=== PATIENT | female | born 1945 | race Hispanic/Latino ===

== ENCOUNTER 2020-08-12 13:24 | Inpatient (IN) | payer OTHER ==
--- OUTSIDE RECORDS SUMMARY | 2020-08-12 13:31 | XMS REPORT | Continuity of Care Document ---
:1945 Author Organization Fio Care Team Providers Name Role Phone Fio Unavailable Un available Problems Problem Status Onset Classification Date Comments Sourc e Date Reported NEW PT CONSULT - Active [facility] CIRRHOSIS 0 [facility] Arthritis Active Problem 07/30/2019 [facility] (disorder) [facility] Center Cirrhosis of Active Problem 07/30/2019 [place] [facility] liver (disorder) Med [facility] Center Diabetes Active Problem 07/30/2019 [facility] mellitus Medical (disorder) Center Disease of Active Problem 07/30/2019 [facility] digestive system Med ica (disorder) Center Hypertensive Active Problem 07/30/2019 [place] [facility] disorder, Medical systemic Center arterial (disorder) Simple obesity Active Problem 07/30/2019 [place] ([facility] Medications Medication Details Route Status Patient Ordering Order Source Instructions Provider Date pantoprazole 40 40 mg = 1 Active [place] [facility] mg oral enteric tab, PO, 020 Medical coated tablet Daily, 3 Center Refill(s) omeprazole 40 mg 40 mg = 1 Inactive [place] oral delayed cap, PO, 020 Medical release capsule Daily, 1 Center Refill(s) gabapentin 100 100 mg = 1 Active [place] [facility] MG Oral Capsule cap, PO, 020 Medical TID, 1 Center Refill(s) DULoxetine 60 mg 60 mg = 1 [place] oral delayed cap, PO, 020 Medical release capsule Daily, 0 Center Refill(s) Tresiba 60 unit, Active [facility] FlexTouch SUB-Q, 020 Medical Daily, 0 Center Refill(s) magnesium oxide 400 mg = 1 [place] mg oral tab, PO, 020 Medical tablet Daily, 1 Center Refill(s) irbesartan 300 300 mg = 1 Active [place] mg oral tablet tab, PO, 020 Medical Daily, 0 Center Refill(s) tramadol 50 mg = 1 Active [place] hydrochloride 50 tab, PO, 020 Medica l MG Oral Tablet Q8H, PRN Center Pain, 0 Refill(s) Milk Thistle 0 Refill(s) Inactive [place] [address] [facility] non-formulary TURMERIC Inactive [facility] DIALY, 020 Medical Refill(s) 0 Center Allergies, Adverse Reactions, Alerts No Known Medication Allergies Immunizations No Data Provided for This Section Results Order Name Results Value Reference Date Interpretation Comments Alize rce Range ANEMIA Iron 57 30 - 160 07/[address] ANEMIA TIBC 416 228 - 428 07/[address] ANEMIA Ferritin Lvl 15 5 - 204 07/[address] ANEMIA UIBC 359 110 - 370 07/[address] ANEMIA % Satur Fe 14 12 - 57 07/[address] CHEM PANEL Glucose Lvl 88 70 - 99 07/[address] CHEM PANEL BUN 17 7 - 22 07/[address] CHEM PANEL Creatinine Lvl 0.72 0.50 - 07/28 [place] [address] [facility] CHEM PANEL Sodium Lvl 139 135 - 145 07/[address] CHEM PANEL Potassium Lvl 3.8 3.5 - 5.1 07/[place] [address] CHEM PANEL Chloride Lvl 107 95 - 109 07/[address] [place] [facility] CHEM PANEL CO2 26 24 - 32 07/[address] CHEM PANEL Calcium Lvl 9.5 8.5 - 10.5 07/28 [place] as /[address] [facility] CHEM PANEL AGAP 9.8 10.0 - 07/28 [place] 20.[address] [facility] CHEM PANEL eGFR 82 07/28 Result [place] [id number] Comment: The Medical eGFR is Center calculated using the CKD-EPI formula. In most young, healthy individuals the eGFR will be >90 mL/min/1.73m2 . The eGFR declines with age. An eGFR of 60-89 may be normal in some populations, particularly the elderly, for whom the CKD-EPI formula has not been extensively validated. Use of the eGFR is not recommended in the following populations:< br/>
Nereyda viduals with unstable creatinine concentration s, including patients and those with serious co-morbid conditions.<b r/>
Patie nts with extremes in muscle mass or diet.

The data above are obtained from the National Kidney Disease Education Program (NKDEP) which additionally recommends that when the eGFR is used in patients with extremes of body mass index for purposes of drug dosing, the eGFR should be multiplied by the estimated BMI. CHEM PANEL Total Protein 7.8 6.4 - 8.4 07/[address] CHEM PANEL Albumin Lvl 4.1 3.5 - 5.0 07/[address] CHEM PANEL ALT 22 0 - 65 07/[address] CHEM PANEL AST 26 0 - 37 07/[address] CHEM PANEL Alk Phos 118 39 - 136 07/[address] CHEM PANEL Bili Total 0.6 0.2 - 1.3 07/[address] CHEM PANEL Bili Direct 0.1 0.0 - 0.3 07/[address] CHEM PANEL Bili Indirect 0.5 0.0 - 1.0 07/[address] CHEM PANEL Globulin 3.7 2.7 - 4.2 07/[address] CHEM PANEL A/G Ratio 1.1 0.7 - 1.6 07/[address] HEMATOLOGY WBC 7.1 3.7 - 10.4 07/[address] HEMATOLOGY RBC 4.49 4.20 - 07/28 [place] [address] [facility] HEMATOLOGY Hgb 12.3 12.0 - 07/28 [facility] [address] HEMATOLOGY Hct 37.8 36.0 - 07/28 [place] [address] HEMATOLOGY MCV 84.2 80.0 - 07/28 [facility] 98.[address] [facility] HEMATOLOGY MCH 27.5 27.0 - 07/28 [facility] 31.[address] HEMATOLOGY MCHC 32.6 32.0 - 07/28 [place] [address] HEMATOLOGY RDW 15.1 11.5 - 07/28 [place] 14.5 /[address] [facility] HEMATOLOGY Platelet 115 133 - 450 07/[address] HEMATOLOGY MPV 10.3 7.4 - 10.4 07/[address] HEMATOLOGY PT 14.2 12.0 - 07/28 [facility] 14.7 /[address] [facility] HEMATOLOGY INR 1.10 0.85 - 07/28 [facility] 1.17 /[address] [facility] HEMATOLOGY Segs 39.9 45.0 - 07/28 [facility] [address] [facility] HEMATOLOGY Lymphocytes 51.4 20.0 - 07/28 [facility] [address] [facility] HEMATOLOGY Monocytes 5.5 2.0 - 12.0 07/[address] HEMATOLOGY Eosinophils 2.7 0.0 - 4.0 07/28 [facility] [facility] HEMATOLOGY Basophils 0.5 0.0 - 1.0 07/[address] HEMATOLOGY Neutrophils # 2.8 1.5 - 8.1 07/[address] HEMATOLOGY Lymphocytes # 3.6 1.0 - 5.5 07/[address] HEMATOLOGY Monocytes # 0.4 0.0 - 0.8 07/[address] HEMATOLOGY Eosinophils # 0.2 0.0 - 0.5 07/28 [facility] [address] IMMUNOLOGY Hep C Ab Negative Negative 07[facility] (07/28/19 1:58 PM) Center IMMUNOLOGY Hep Bs Ab 79.4 <=7.4 07/28 [facility] mIU/mL [facility] IMMUNOLOGY Hep Bs Ag Negative Negative 07/28 [facility] *NA* [facility] (07/28/19 1:58 PM) Center IMMUNOLOGY Hep B Core Ab Positive Negative 07/28 [facility] [place] *NA* [facility] (07/28/19 1:58 PM) Center IMMUNOLOGY Hep A Tot Positive Negative 07/28 [facility] *NA* [facility] (07/28/19 1:58 PM) Center IMMUNOLOGY CHER Negative Negative 07/28 [facility] (07/28/19 1:58 PM) [facility] SMA Screen Negative Negative 07/28 [facility] (07/28/19 1:58 PM) Medica l Center IMMUNOLOGY AMA Ab Scr Negative Negative 07/28 [facility] (07/28/19 1:58 PM) /[address] [place] [address] IMMUNOLOGY A-1-AT 141 83 - 199 07/[address] IMMUNOLOGY CERULOPLASMIN 30 20 - 60 07/28 [facility] [address] IMMUNOLOGY IgG Lvl 1070 694 1618 07/[address] TUMOR AFP 4.8 0.0 - 11.0 07/[address] Pathology Reports No Data Provided for This Section Diagnostic Reports No Data Provided for This Section Consultation Notes No Data Provided for This Section Discharge Summaries No Data Provided for This Section History and Physicals No Data Provided for This Section Vital Signs Vital Sign Value Date Comments Source Systolic (mm Hg) 150 07/28/2019 [facility] dical [place] Diastolic (mm Hg) 73 07/28/2019 [facility] Heart Rate 77 07/28/2019 [facility] Respitory Rate 16 07/28/2019 [facility] Height 166.37 cm 07/28/2019 [facility] Weight 94.545 07/28/2019 [facility] BMI Calculated 34.16 07/28/2019 [facility] Encounters Location Location Encounter Encounter Reason Attending ADM GA Stat us Source Details Type Number For Provider Date Date Visit Digestive Outpatient [id number] Patricia 07/28 07/29 [facility] Disease [place] /2019 [facility] Procedures Procedure Code Date Perfomer Comments Source Abdominal tap [id number] [facility] Appendectomy [id number] [facility] Colonoscopy<sup>1</ [id number] 2018 [place] sup> [facility] Endoscopy<sup>2</boo [id number] 2018 [facility] p> [facility] Tonsillectomy [id number] [facility] Assessment and Plan No Data Provided for This Section Plan of Care No Data Provided for This Section Social History Social History Date Source Social History TypeResponse 07/28/2019 [facility] Never Smoking Status Former smoker; Ready to change: No; Conc erns about tobacco use in household: No; Exposure to Tobacco Smoke None; Cigarette Smoking Last 365 Days No; Reg Smoking Cessation Counseling No entered on: 07/28/19 Family History No Data Provided for This Section Advance Directives No Data Provided for This Section Functional Status No Data Provided for This Section
--- OUTSIDE RECORDS SUMMARY | 2020-08-12 13:31 | XMS REPORT | Continuity of Care Document ---
:1945 Author Organization [facility] t Address [address] [place] [address] Care Team Providers Name Role Phone Litzy Mitchell Attending Clinician Problems Condition Condition Condition Status Onset Resolution Last Treating Co mments Source Name Details Category Date Date Treatment Clinician Date NEW PT Diagnosis Active 2019-07-29 Mem [facility] CONSULT - 1- 08:29:00 l CIRRHOSIS NEW PT 00:00: [place] nn CONSULT - 00 CIRRHOSIS Active 07/16/2019 [facility] Arthritis Problem Active 2019-07-30 [facility] [place] (disorder) 23:57:56 l [place] Arthritis (disorder) Active Problem 07/30/2019 [facility] Cirrhosis Problem Active 2019-07-30 Me [place] of liver 23:57:56 l (disorder) [place] n Cirrhosis of liver (disorder) Active Problem 07/30/2019 [facility] Diabetes Problem Active 2019-07-30 Mem o[facility] mellitus 23:57:56 l (disorder) Diabetes [place] mellitus (disorder) Active Problem 07/30/2019 [facility] Disease of Problem Active 2019-07-30 M [facility] digestive 23:57:56 l system Disease [place] (disorder) of digestive system (disorder) Active Problem 07/30/2019 [facility] Hypertensi Problem Active 2019-07-30 M emoria ve 23:57:56 l disorder, [place] systemic Hypertensi arterial ve (disorder) disorder, systemic arterial (disorder) Active Problem 07/30/2019 [facility] Simple Problem Active 2019-07-30 Memor ia obesity 23:57:56 l (disorder) Simple Herm [facility] obesity (disorder) Active Problem 07/30/2019 [facility] Allergies, Adverse Reactions, Alerts This patient has no known allergies or adverse reactions. Social History Social Habit Start Date Stop Date Quantity Comments Source Social History 2019-07-28 2019-07-28 [facility] 18:46:54 18:46:54 Medications Ordered Filled Start Stop Current Ordering Indication Dosage Frequency Signature Comments Components Source Medication Medication Date Date Medication? Clinician (SIG) Name Name pantoprazol 2020-0 Yes 40 mg = 1 M emoria e 40 mg 1-14 tab, PO, l oral 18:48: Daily, 3 [place] enteric 00 Refill(s) coated tablet omeprazole 2020-0 No 40 mg = 1 [place] 40 mg oral 1-14 cap, PO, l delayed 18:48: Daily, 1 [place] n release 00 Refill(s) capsule gabapentin 2020-0 Yes 100 mg = 1 M emoria 100 MG Oral 1-14 cap, PO, l Capsule 18:48: TID, 1 [place] 00 Refill(s) DULoxetine 2020-0 Yes 60 mg = 1 Me mor[place] 60 mg oral 1-14 cap, PO, l delayed 18:48: Daily, 0 [place] n release 00 Refill(s) capsule Tresiba 2020-0 Yes 60 unit, Memori a FlexTouch 14 SUB-Q, l 18:48: Daily, 0 [place] 00 Refill(s) magnesium 2020-0 Yes 400 mg = 1 Me [place] oxide 400 -14 tab, PO, l mg oral 18:48: Daily, 1 [place] n tablet 00 Refill(s) irbesartan 2019-0 Yes 300 mg = 1 M emoria 300 mg oral 1-14 tab, PO, l tablet 18:48: Daily, 0 [place] 00 Refill(s) tramadol 2019-0 Yes 50 mg = 1 Jeffrey natali hydrochlori -14 tab, PO, l de 50 MG 18:48: Q8H, PRN [place] nn Oral Tablet 00 Pain, 0 Refill(s) Milk 2020-0 No 0 Memoria Thistle -14 Refill(s) l 18:48: [place] 00 non-formula 2019-0 No TURMERIC Me moria ry -14 DIALY, l 18:48: Refill(s) [place] 00 0 Vital Signs Vital Name Observation Time Observation Value Comments Source Systolic (mm Hg) 2019-07-28 18:32:00 Jeffrey rial [place] Diastolic (mm Hg) 2019-07-28 18:32:00 Mem orial [place] Heart Rate 2019-07-28 18:32:00 [facility] [place] Respitory Rate 2019-07-28 18:32:00 Memori al [place] Height 2019-07-28 18:32:00 166.37 cm [facility] [place] Weight 2019-07-28 18:32:00 [facility] [place] BMI Calculated 2019-07-28 18:32:00 Memori al [place] Procedures Procedure Date / Time Performed Performing Clinician [facility] e Abdominal tap [facility] [place] Appendectomy [facility] [place] Colonoscopy<sup>1</sup> [facility] [place] Endoscopy<sup>2</sup> [facility] Tonsillectomy [facility] [place] Encounters Start End Encounter Admission Attending Care Care Encounter Source Date/Time Date/Time Type Type Clinicians Facility Department ID 2019-07-28 2019-07-28 Outpatient [facility] [id number] 12:27:00 23:59:00 Patricia 00 Litzy 2019-07-28 2019-07-28 Outpatient [facility] [id number] [facility] 12:27:00 12:27:00 Results Test Description Test Time Test Comments Results Result Comments Source ANEMIA STUDY 2019-07-28 57 [facility] 19:58:00 ANEMIA STUDY 2019-07-28 416 [facility] [place] 19:58:00 ANEMIA STUDY 2019-07-28 15 [facility] [place] 19:58:00 ANEMIA STUDY 2019-07-28 359 [facility] [place] 19:58:00 ANEMIA STUDY 2019-07-28 14 [facility] [place] 19:58:00 CHEM PANEL 2019-07-28 88 [facility] [place] nn 19:58:00 CHEM PANEL 2019-07-28 17 [facility] [place] nn 19:58:00 CHEM PANEL 2019-07-28 0.72 [facility] [place] nn 19:58:00 CHEM PANEL 2019-07-28 139 [facility] [place] nn 19:58:00 CHEM PANEL 2019-07-28 3.8 [facility] [place] nn 19:58:00 CHEM PANEL 2019-07-28 107 [facility] [place] nn 19:58:00 CHEM PANEL 2019-07-28 26 [facility] [place] nn 19:58:00 CHEM PANEL 2019-07-28 9.5 [facility] [place] nn 19:58:00 CHEM PANEL 2019-07-28 9.8 [facility] [place] nn 19:58:00 CHEM PANEL 2019-07-28 82 [facility] [place] nn 19:58:00 CHEM PANEL 2019-07-28 7.8 [facility] [place] nn 19:58:00 CHEM PANEL 2019-07-28 4.1 [facility] [place] nn 19:58:00 CHEM PANEL 2019-07-28 22 [facility] [place] nn 19:58:00 CHEM PANEL 2019-07-28 26 [facility] [place] nn 19:58:00 CHEM PANEL 2019-07-28 118 [facility] [place] nn 19:58:00 CHEM PANEL 2019-07-28 0.6 [facility] [place] nn 19:58:00 CHEM PANEL 2019-07-28 0.1 [facility] [place] nn 19:58:00 CHEM PANEL 2019-07-28 0.5 [facility] [place] nn 19:58:00 CHEM PANEL 2019-07-28 3.7 [facility] [place] nn 19:58:00 CHEM PANEL 2019-07-28 19:58:00 Test Item Value Reference Range Interpretation Comme nts A/G Ratio (test code = A/G Ratio) 1.1 1 0.7-1.6 [facility] TlunxjnPOPOZBWZGH2743-92-06 19:58:007.1[facility] HermannHEMATOLOGY 2019-07-28 19:58:004.49[facility] DgfqnccHGTRLWLVVS7075-72-49 19:58:0012.3[facility] FmcrynzLUSRXEQANE8140-10-47 19:58:0037.8[facility] MswycgdKAXTMPIAAV2165-07-80 19:58:0084.2[facility] DhnolicGDWVHFLJNA6274-52-87 19:58:00 Test Item Value Reference Range Interpretation Comments MCH (test code = MCH) 27.5 pg 27.0-31.0 [facility] LruvndcKZAOQTNWGR4036-54-51 19:58:0032.6[facility] HermannHEMATOLOGY 2019-07-28 19:58:0015.1[facility] AydnceuRLIGWEGECE6680-88-99 19:58:93684Mzkuksip MsyhefcRKAPBOTKFE7106-78-32 19:58:0010.3[facility] HrzmyapNTMCMRMJCL4499-87-70 19:58:00 Test Item Value Reference Range Interpretation Comments PT (test code = PT) 14.2 s 12.0-14.7 [facility] NnmmquwTYRCRHRIED1228-19-87 19:58:00 Test Item Value Reference Range Interpretation Comments INR (test code = INR) 1.10 1 0.85-1.17 [facility] KpvicakROUYRDWEKC2154-68-42 19:58:0039.9[facility] HermannHEMATOLOGY 2019-07-28 19:58:0051.4[facility] OecygvcHWBFDUGJJW7956-26-76 19:58:005.5[facility] UdfvbjbCZBCVIYTDD8741-91-45 19:58:002.7[facility] PgtxmewPJFHNWMKGP2178-90-79 19:58:000.5[facility] EgewkftRRHHFSBKCS7475-95-61 19:58:002.8[facility] [place] CVEPHYEPDH7206-27-69 19:58:003.6[facility] McfwqnaNLIAGWBWOE7187-32-80 19:58:000.4 Memorial NxmrvvzBRPVNGFIAV3395-48-79 19:58:000.2[facility] HermannIMMUNOLOGY 2019-07-28 19:58:00Negative *NA*(07/28/19 1:58 PM)[facility]ann[facility]MUNOLOGY 2019-07-28 19:58:0079.4[facility] PtemdxmLNWCGVWYGS6413-95-20 19:58:00Negative *NA*(07/28/19 1:58 PM)[facility] WcegrfjNEKAKIDTBT6445-44-79 19:58:00Positive *NA*(07/28/19 1:58 PM)[facility] WbnbpvkVEUTZPLLRC9064-83-84 19:58:00Positive *NA*(07/28/19 1:58 PM)[facility] DpalmtkFKYJXELBOY9946-36-83 19:58:00Negative (07/28/19 1:58 PM)[facility] DudvxtjOMMUAVRBMV2925-16-02 19:58:00Negative (07/28/19 1:58 PM)[facility] IwghghzWFPZHBBDCZ3800-40-37 19:58:00Negative (07/28/19 1:58 PM) [facility] NhopzslLYCRQPZBRO4130-62-23 19:58:77637Eekhharj HermannIMMUNOLOGY 2019-07-28 19:58:0030[facility] EpoomeyTTGFQURDFB7688-55-11 19:58:078935Fynochul HermannTUMOR MKDOIJZ7483-06-92 19:58:004.8[facility] [place]
[2020-08-12] MEDS ORDERED: METHYLPREDNISOLONE 40 MG INJ ONE (14:52)
[2020-08-12 15:09] LABS: Absolute Lymphocytes (CBC) 0.8 K/uL (0.7-4.9); Basophils % 0.3 % (0-1.3); Hematocrit 39.6 % (36.0-45.0); MPV 10.4 fL (7.6-11.3); RBC Red Blood Cell Count 4.66 M/uL (3.86-4.86)
[2020-08-12 15:17] LABS: Protime INR 1.03
[2020-08-12] MEDS ORDERED: ASPIRIN 81 MG CHEWABLE TABLET ONE (15:20)
[2020-08-12 15:33] LABS: ALT/SGPT 41 U/L (12-78); AST/SGOT 78 U/L (15-37); Alkaline Phosphatase 150 U/L (45-117); BUN Blood Urea Nitrogen 23 mg/dL (7-18); Bicarbonate 24 mmol/L (21-32); Bilirubin Direct 0.3 mg/dL (0-0.2); Bilirubin Total 0.7 mg/dL (0.2-1.0); Ferritin 210.3 ng/mL (8-388); Glucose Level 240 mg/dL (74-106); Magnesium 1.5 mg/dL (1.8-2.4); NT PRO-BNP 76 pg/mL (<450); Protein, Total 7.3 g/dL (6.4-8.2); Sodium Level 135 mmol/L (136-145); Troponin (Emerg Dept Use Only) < 0.02 ng/mL (0.0-0.045)
[2020-08-12 15:36] LABS: Blood Morphology Comment NOT SEEN (NOT SEEN); Platelet Estimate DECR; White Blood Cell Scan OK (OK)
--- NOTE | 2020-08-12 15:48 | RAD REPORT ---
EXAM DESCRIPTION: RAD - Chest Single View - 08/12/2020 3:21 pm CLINICAL HISTORY: Cough;SOB Chest pain. COMPARISON: Chest Pa And Lat (2 Views) dated 09/20/2016; CHEST PA AND LAT 2 VIEW dated 04/22/2015; CHES T SINGLE VIEW dated 11/24/2013; CHEST SINGLE VIEW dated 10/08/2010 FINDINGS: Portable technique limits examination quality. Moderate pulmonary opacities are present, greater in the right lower lung, likely representing pneumo jere. The heart is mildly enlarged in size. No displaced fractures.
[2020-08-12] MEDS ORDERED: MAGNESIUM SULFATE 1 gm IVPB 1 GM/100 ML BAG IV ONE (16:17)
[2020-08-12 16:18] LABS: SARS-COV-2 RT PCR POSITIVE (NEGATIVE)
--- NOTE | 2020-08-12 16:34 | RAD REPORT ---
EXAM DESCRIPTION: CT - Chest For Pe Angio - 08/12/2020 4:23 pm CLINICAL HISTORY: Chest pain. Cough;SOB COMPARISON: No comparisons TECHNIQUE: CT angiogram of the pulmonary arteries was performed with MIP. All CT scans are performed using dose optimization technique as appropriate and may include automated exposure control or mA/KV adjustment according to patient size. FINDINGS: No evidence of pulmonary thromboembolism. No acute aortic finding demonstrated. Moderately severe lung opacities are present, greater in both lung bases and peripherally, compatible with COVID-19 infection. No significant pericardial or pleural fluid. No concerning bony finding. IMPRESSION: No evidence of pulmonary thromboembolism. Moderate bilateral lung opacities are present greatest in the periphery and lung bases compatible wit h COVID-19 infection.
--- NOTE | 2020-08-12 17:17 | ER ---
Nurse's Notes [facility] Name: Samatnha Velasquez Age: 74 yrs Sex: Female : 1945 Arrival Date: 08/12/2020 Time: 13:28 Bed 6 Private MD: Diagnosis: Coronavirus infection, unspecified;Pneumonia due to other specified infectious organisms;Hypoxemia Presentation: 08/12 13:37 Chief complaint: Patient states: Diagnosed 10 days ago with covid. SOB, cough, fatigue ll1 for 3 days. + body aches. Slight nausea and diarrhea. No appetite. Coronavirus screen: Client denies travel out of the [place] in the last 14 days. cough unrelated to allergies, difficulty breathing, fatigue, fever, headache, shortness of breath, Client presents with at least one sign or symptom that may indicate coronavirus-19. Standard/surgical mask placed on the client. Ebola Screen: Patient denies travel to an Ebola-affected area in the 21 days before illness onset. Initial Sepsis Screen: Does the patient meet any 2 criteria? HR > 90 bpm. No. Patient's initial sepsis screen is negative. Does the patient have a suspected source of infection? Yes: Productive cough/pneumonia. Risk Assessment: Do you want to hurt yourself or someone else? Patient reports no desire to harm self or others. Onset of symptoms was August 02, 2020. 13:37 Method Of Arrival: Ambulatory 1 13:37 Acuity: JAVIER 2 ll1 Triage Assessment: 14:17 Respiratory: the patient has moderate shortness of breath. vg1 Historical: - Allergies: 13:40 No Known Drug Allergies; ll1 - PMHx: 13:40 Hypertension; Diabetes - NIDDM; ll1 - PSHx: 13:40 Appendectomy; ll1 - Immunization history:: Flu vaccine is up to date. - Social history:: Smoking status: Patient denies any tobacco usage or history of. Screenin:17 Abuse screen: Denies threats or abuse. Nutritional screening: No deficits noted. vg1 Tuberculosis screening: No symptoms or risk factors identified. Fall Risk No fall in past 12 months (0 pts). No secondary diagnosis (0 pts). No IV (0 pts). Ambulatory Aid- None/Bed Rest/Nurse Assist (0 pts). Gait- Normal/Bed Rest/Wheelchair (0 pts) Mental Status- Oriented to own ability (0 pts). Total Rodriguez Fall Scale indicates No Risk (0-24 pts). Assessment: 14:10 General: Appears in no apparent distress. comfortable, Behavior is calm, cooperative. vg1 Pain: Complains of pain in patient states body aches. Pain currently is 7 out of 10 on a pain scale. Neuro: Level of Consciousness is awake, alert, obeys commands, Oriented to person, place, time, situation. Respiratory: Airway is patent Respiratory effort is even, unlabored, Respiratory pattern is regular, symmetrical, tachypnea Breath sounds with crackles in right posterior middle lobe. GI: Reports diarrhea, nausea, vomiting. : No signs and/or symptoms were reported regarding the genitourinary system. EENT: No signs and/or symptoms were reported regarding the EENT system. Derm: Skin is intact, is healthy with good turgor. Musculoskeletal: Circulation, motion, and sensation intact. 16:50 Reassessment: Patient appears in no apparent distress at this time. No changes from vg1 previously documented assessment. Patient and/or family updated on plan of care and expected duration. Pain level reassessed. Patient is alert, oriented x 3, equal unlabored respirations, skin warm/dry/pink. 17:18 Reassessment: Received VO from Campos Looney to increase Magnesium to infuse within 10 vg1 minutes. Vital Signs: 13:37 BP 169 / 76; Pulse 94; Resp 24; Temp 97.6; Pulse Ox 87% on R/A; Weight 93.89 kg; Height ll1 5 ft. 5 in. (165.10 cm); Pain 9/10; 14:16 BP 154 / 69; Pulse 90; Resp 22; Pulse Ox 94% on 3 lpm NC; vg1 15:00 BP 159 / 63; Pulse 80; Resp 20; Pulse Ox 94% on 3 lpm NC; vg1 16:00 BP 153 / 70; Pulse 78; Resp 20; Pulse Ox 95% on 3 lpm NC; vg1 17:00 BP 157 / 69; Pulse 82; Resp 22; Pulse Ox 97% on 3 lpm NC; vg1 13:37 Body Mass Index 34.45 (93.89 kg, 165.10 cm) ll1 ED Course: 13:28 Patient arrived in ED. am4 13:39 Triage completed. ll1 13:40 Arm band placed on. ll1 13:45 Mechelle Reno RN is Primary Nurse. vg1 13:48 Campos Looney PA is PHCP. cp 13:48 Johan Bailey MD is Attending Physician. cp 14:17 Patient has correct armband on for positive identification. Placed in gown. Bed in low vg1 position. Call light in reach. Side rails up X 1. 15:04 Initial lab(s) drawn, by ED staff, sent to lab. Inserted saline lock: 22 gauge in right vg1 wrist, using aseptic technique. ,using aseptic technique. done by HUMBERTO Warner Blood collected. 15:21 XRAY Chest (1 view) In Process Unspecified. EDMS 16:[address] via wheelchair. vg1 16:23 CT Chest For PE Angio In Process Unspecified. EDMS 16:[address] moved back from CT. vg1 17:15 Wayne Mathis MD is Referral Physician. cp 17:46 Wayne Mathis MD is Hospitalizing Provider. cp 08/13 00:41 Report given to Sabrina PAUL. vg1 03:02 Primary Nurse role handed off by Mechelle Reno RN mw2 07:36 Belgica Olson RN is Primary Nurse. sv 09:06 Magnesium Sent. sv 09:06 Lipid Profile Sent. sv 09:06 CBC with Automated Diff Sent. sv 09:06 Basic Metabolic Panel Sent. sv Administered Medications: 08/12 15:13 Drug: SOLU-Medrol 80 mg Route: IVP; Site: left wrist; vg1 16:49 Follow up: Response: No adverse reaction vg1 15:13 Drug: Aspirin Chewable Tablet 324 mg Route: PO; vg1 16:49 Follow up: Response: No adverse reaction vg1 16:48 Drug: Magnesium Sulfate 1 grams Route: IVPB; Infused Over: 1 hrs; Site: right wrist; vg1 18:58 Follow up: IV Status: Completed infusion vg1 Outcome: 17:16 Discharge ordered by MD. cp 17:47 Decision to Hospitalize by Provider. 08/13 13:06 Patient left the ED. ss Signatures: Dispatcher [employer] Belgica Fair RN RN sv Smirch, Shelby, RN RN Campos Looney PA PA cp Sveta Price mw2 Mechelle Reno RN RN vg1 Yesenia Gregory, RN RN ll1 Noreen Patterson 4
--- NOTE | 2020-08-12 17:17 | EDPHYS ---
Physician Documentation [facility] Name: Samantha Velasquez Age: 74 yrs Sex: Female : 1945 Arrival Date: 08/12/2020 Time: 13:28 Bed 6 Private MD: ED Physician Johan Bailey HPI: 08/12 14:20 This 74 yrs old Female presents to ER via Ambulatory with complaints of cp Shortness Of Breath, COVID+. 14:20 The patient has shortness of breath at rest. cp 14:20 Onset: The symptoms/episode began/occurred 3 day(s) ago. cp 14:20 Duration: The symptoms are continuous, and are steadily getting worse. Associated signs cp and symptoms: Pertinent positives: non-productive cough, fatigue. 14:20 Patient reports testing positive for COVID-19 10 days ago. cp Historical: - Allergies: 13:40 No Known Drug Allergies; ll1 - PMHx: 13:40 Hypertension; Diabetes - NIDDM; ll1 - PSHx: 13:40 Appendectomy; ll1 - Immunization history:: Flu vaccine is up to date. - Social history:: Smoking status: Patient denies any tobacco usage or history of. ROS: 14:25 Constitutional: Negative for fever, poor PO intake. cp 14:25 Eyes: Negative for injury, pain, redness, and discharge. cp 14:25 ENT: Negative for drainage from ear(s), ear pain, sore throat, difficulty swallowing, difficulty handling secretions. 14:25 Cardiovascular: Negative for chest pain, edema. 14:25 Respiratory: Positive for cough, shortness of breath, at rest. Negative for wheezing. 14:25 Abdomen/GI: Negative for abdominal pain, nausea, vomiting, and diarrhea. 14:25 Back: Negative for radiated pain. 14:25 : Negative for urinary symptoms. 14:25 Neuro: Negative for altered mental status, dizziness, headache, syncope, weakness. 14:25 All other systems are negative. Exam: 14:30 Constitutional: The patient appears in no acute distress, alert, awake, cp non-diaphoretic, non-toxic, well developed, well nourished, obese. 14:30 Head/Face: Normocephalic, atraumatic. cp 14:30 Eyes: Periorbital structures: appear normal, Conjunctiva: normal, no exudate, no injection, Sclera: no appreciated abnormality, Lids and lashes: appear normal, bilaterally. 14:30 ENT: External ear(s): are unremarkable, Nose: is normal, Mouth: Lips: moist, Oral mucosa: pink and intact, moist, Posterior pharynx: Airway: no evidence of obstruction, patent. 14:30 Neck: ROM/movement: is normal, is supple, without pain, no range of motions limitations. 14:30 Chest/axilla: Inspection: normal, Palpation: is normal, no crepitus, no tenderness. 14:30 Cardiovascular: Rate: normal, Rhythm: regular, Edema: is not appreciated, JVD: is not appreciated. 14:30 Respiratory: mild respiratory distress is noted, Respirations: labored breathing, that is mild, Breath sounds: bronchial sounds, that are mild, are heard diffusely, decreased breath sounds, that are mild, diffuse, wheezing: is not appreciated. 14:30 Abdomen/GI: Inspection: abdomen appears normal, Bowel sounds: active, all quadrants, Palpation: abdomen is soft and non-tender, in all quadrants. 14:30 Back: pain, is absent, ROM is normal. 14:30 Skin: no rash present. cp 14:30 Neuro: Orientation: to person, place \T\ time. Mentation: is normal, Motor: moves all fours, strength is normal. 14:50 ECG was reviewed by the Attending Physician. cp Vital Signs: 13:37 BP 169 / 76; Pulse 94; Resp 24; Temp 97.6; Pulse Ox 87% on R/A; Weight 93.89 kg; Height ll1 5 ft. 5 in. (165.10 cm); Pain 9/10; 14:16 BP 154 / 69; Pulse 90; Resp 22; Pulse Ox 94% on 3 lpm NC; vg1 15:00 BP 159 / 63; Pulse 80; Resp 20; Pulse Ox 94% on 3 lpm NC; vg1 16:00 BP 153 / 70; Pulse 78; Resp 20; Pulse Ox 95% on 3 lpm NC; vg1 17:00 BP 157 / 69; Pulse 82; Resp 22; Pulse Ox 97% on 3 lpm NC; vg1 13:37 Body Mass Index 34.45 (93.89 kg, 165.10 cm) ll1 MDM: 14:07 Patient medically screened. cp 15:20 Physician consultation: Wayne Mathis MD was called at 15:15, was contacted at 15:15, cp regarding admission, to the telemetry unit. patient's condition, wants patient discharged to home. Will set up home oxygen and call in home meds if condition remains stable. 16:55 Data reviewed: vital signs, nurses notes, lab test result(s), EKG, radiologic studies, cp CT scan, plain films, I have discussed the patient's presentation/case with the attending Emergency Department Physician;. 17:00 Counseling: I had a detailed discussion with the patient and/or guardian regarding: the cp historical points, exam findings, and any diagnostic results supporting the discharge/admit diagnosis, lab results, radiology results. 17:00 Physician consultation: Wayne Mathis MD was called at 17:00, was contacted at 17:00, cp regarding patient's condition, Patient reports home oxygen has not been delivered, she lives alone with little family support. Will admit for continued care. 08/12 14:15 Order name: Basic Metabolic Panel; Complete Time: 15:40 cp 08/12 14:15 Order name: CBC with Diff; Complete Time: 15:40 cp 08/12 15:15 Interpretation: Normal except: WBC 3.20; PLT 83; RDW 15.3. cp 08/12 14:15 Order name: LFT's; Complete Time: 15:40 cp 08/12 14:15 Order name: Magnesium; Complete Time: 15:40 cp 08/12 14:15 Order name: NT PRO-BNP; Complete Time: 15:40 cp 08/12 14:15 Order name: PT-INR; Complete Time: 15:40 cp 08/12 14:15 Order name: Troponin (emerg Dept Use Only); Complete Time: 15:40 cp 08/12 14:15 Order name: CRP; Complete Time: 15:40 cp 08/12 14:15 Order name: D-Dimer; Complete Time: 15:40 cp 08/12 14:15 Order name: Ferritin; Complete Time: 15:40 cp 08/12 15:36 Order name: CBC Smear Scan; Complete Time: 15:40 EDMS 08/12 14:15 Order name: XRAY Chest (1 view); Complete Time: 16:50 cp 08/12 15:42 Order name: CT Chest For PE Angio; Complete Time: 16:50 cp 08/12 16:18 Order name: COVID-19/FLU A+B; Complete Time: 16:50 EDMS 08/12 19:00 Order name: Basic Metabolic Panel EDMS 08/12 19:01 Order name: Basic Metabolic Panel EDMS 08/12 19:01 Order name: CBC with Automated Diff EDMS 08/12 19:01 Order name: CBC with Automated Diff EDMS 08/12 19:01 Order name: Lipid Profile EDCO 08/12 19:01 Order name: Lipid Profile EDMS 08/12 19:01 Order name: Magnesium EDMS 08/12 19:01 Order name: Magnesium EDMS 08/12 22:40 Order name: Glucose, Ancillary Testing EDMS 08/13 08:01 Order name: Glucose, Ancillary Testing EDMS 08/12 14:15 Order name: EKG; Complete Time: 14:17 cp 08/12 14:15 Order name: Cardiac monitoring; Complete Time: 15:04 cp 08/12 14:15 Order name: EKG - Nurse/Tech; Complete Time: 15:04 cp 08/12 14:15 Order name: IV Saline Lock; Complete Time: 15:04 cp 08/12 14:15 Order name: Labs collected and sent; Complete Time: 15:04 cp 08/12 14:15 Order name: O2 Per Protocol; Complete Time: 14:19 cp 08/12 14:15 Order name: O2 Sat Monitoring; Complete Time: 14:19 cp 08/12 19:01 Order name: CONS Physician Consult; Complete Time: 09:06 EDMS 08/12 19:01 Order name: Consistent Carb (ADA) 1800 Marco; Complete Time: 09:06 EDMS 08/12 19:01 Order name: Respiratory Therapy Consult; Complete Time: 09:06 EDMS EC:50 Rate is 83 beats/min. Rhythm is regular. WV interval is normal. QRS interval is normal. cp QT interval is normal. T waves are Inverted in lead aVR. Interpreted by me. Reviewed by me. Administered Medications: 15:13 Drug: SOLU-Medrol 80 mg Route: IVP; Site: left wrist; vg1 16:49 Follow up: Response: No adverse reaction vg1 15:13 Drug: Aspirin Chewable Tablet 324 mg Route: PO; vg1 16:49 Follow up: Response: No adverse reaction vg1 16:48 Drug: Magnesium Sulfate 1 grams Route: IVPB; Infused Over: 1 hrs; Site: right wrist; vg1 18:58 Follow up: IV Status: Completed infusion vg1 Disposition: 08/12/20 17:47 Hospitalization ordered by Wayne Mathis for Inpatient Admission. Preliminary diagnosis are Coronavirus infection, unspecified, Pneumonia due to other specified infectious organisms, Hypoxemia. - Bed requested for [facility] ER HOLD. - Status is Inpatient Admission. ss - Condition is Stable. - Problem is new. - Symptoms have improved. Addendum: 08/14/2020 20:01 Co-signature as Attending Physician, Johan Bailey MD I agree with the assessment and [facility] plan of care. Signatures: Dispatcher [employer] EDCO Leticia Merritt RN RN Johan Bailey MD MD [facility] Magaly Bran RN RN Campos Looney PA PA cp Garcia, Victoria, RN RN vg1 Yesenia Gregory RN RN 1 Corrections: (The following items were deleted from the chart) 08/12 15:27 14:17 Influenza Screen (A \T\ B)+[id number].LAB.BRZ ordered. EDCO EDMS 15:27 14:23 Influenza Screen (A ordered. EDCO EDMS 17:46 17:16 08/12/2020 17:16 Discharged to Home. Impression: Pneumonia due to other specified cp infectious organisms; Coronavirus infection, unspecified; Hypoxemia. Condition is Stable. Forms are Medication Reconciliation Form, Thank You Letter, Antibiotic Education, Prescription Opioid Use. Follow up: Wayne Mathis; When: 2 - 3 days; Reason: Recheck today's complaints. Problem is new. Symptoms have improved. cp 20:16 17:47 Hospitalization Ordered by Wayne Mathis MD for Inpatient Admission. Preliminary dw diagnosis is Coronavirus infection, unspecified; Pneumonia due to other specified infectious organisms; Hypoxemia. Bed requested for Telemetry/MedSurg (Inpatient). Status is Inpatient Admission. Condition is Stable. Problem is new. Symptoms have improved. cp 08/13 13:06 08/12 20:16 08/12/2020 17:47 Hospitalization Ordered by Wayne Mathis MD for Inpatient ss Admission. Preliminary diagnosis is Coronavirus infection, unspecified; Pneumonia due to other specified infectious organisms; Hypoxemia. Bed requested for [facility] ER HOLD. Status is Inpatient Admission. Condition is Stable. Problem is new. Symptoms have improved. dw
[2020-08-12] MEDS ORDERED: ONDANSETRON 4 MG/2 ML VIAL IV PRN (18:55)
[2020-08-12] MEDS ORDERED: ACETAMINOPHEN 500 MG TAB PO PRN (18:55)
[2020-08-12] MEDS ORDERED: IVERMECTIN 3 MG TABLET PO ONE (19:00)
[2020-08-12 20:17] VITALS: BMI 31.6
[2020-08-12] MEDS: RIVAROXABAN 15 MG TABLET PO SCH (21:00)
[2020-08-12] MEDS: METHYLPREDNISOLONE 40 MG INJ IV SCH (21:00)
[2020-08-12] MEDS ORDERED: RIVAROXABAN 15 MG TABLET PO ONE (21:36)
[2020-08-12] MEDS ORDERED: GLUCAGON 1 MG/VIAL IM PRN ×2 (22:47→22:49)
[2020-08-12] MEDS ORDERED: D50W 25 GM/50 ML SYRINGE IV PRN ×2 (22:47→22:49)
[2020-08-12] MEDS: INSULIN -REGULAR HUMAN 50 UNIT/0.5 ML ML SQ SCH (23:11)
[2020-08-12] MEDS ORDERED: INSULIN -REGULAR HUMAN 50 UNIT/0.5 ML ML ONE (23:32)
[2020-08-13 00:43] VITALS: TEMP 98
[2020-08-13 05:43] LABS: Absolute Lymphocytes (CBC) 0.9 K/uL (0.7-4.9); Basophils % 0.1 % (0-1.3); Hematocrit 37.5 % (36.0-45.0); Lymphocytes % 36.4 % (15.3-44.8); MPV 10.6 fL (7.6-11.3); RBC Red Blood Cell Count 4.46 M/uL (3.86-4.86)
[2020-08-13 05:55] LABS: Magnesium 1.9 mg/dL (1.8-2.4); Potassium 4.4 mmol/L (3.5-5.1)
[2020-08-13] MEDS: INSULIN -REGULAR HUMAN 50 UNIT/0.5 ML ML SQ SCH (07:30)
--- NOTE | 2020-08-13 08:13 | P.SSS ---
Patient History Date of Service: 08/13/20 Reason for admission: WEAKNESS History of Present Illness: MS MARIO HAS COVID PNEUMONIA. SHE WAS WEAK AND BROUGHT TO HOSPITAL BY FAMILY. HER OXYGN SATURATION IS ABOUT 86% ON RA. SHE IS DOING GOOD ON OXYGN 3 LT NC. I TRIED TO GET HER HOME YESERDAY BUT THERE WAS NO FAMILY TO TAKE CARE OF HER OXYGEN AT HOME. SHE DID NOT GET IVERMECTINE HER PHARMACY HAD NONE. I CALLED IN RX TO [facility] TODAY. Allergies No Known Drug Allergies Allergy (Verified 04/22/15 10:58) Unknown No Known Allergie Allergy (Uncoded 12/08/16 12:11) Unknown Home Medications: Irbesartan/Hydrochlorothiazide [Avalide 300-12.5 mg Tablet] 1 tab PO DAILY 11/24/13 Magnesium Oxide [Mag 0X*] 400 mg PO BID 11/24/13 Gabapentin [Neurontin*] 100 mg PO TID 04/22/15 Verapamil Sr [Calan SR Or Isoptin SR*] 240 mg PO DAILY 04/22/15 Duloxetine HCl [Cymbalta] 60 mg PO DAILY 08/13/20 Insulin Degludec [Tresiba Flextouch U-200] 50 units SQ DAILY WITH BREAKFAST 08/13/20 traMADol HCL [Ultram*] 50 mg PO BIDP PRN 08/13/20 - Past Medical/Surgical History Has patient received pneumonia vaccine in the past: Yes Diabetic: Yes -: HTN -: CHRONIC CONSTIPATION -: CHRONIC PANCREATITIS -: FREQUENT UTI -: DM -: LIVER Cirrhosis -: APPENDECTOMY -: TONSILLECTOMY - Family History Mother -: Heart disease, Hypertension Father Notes: AAA - Social History Smoking Status: Never smoker Alcohol use: No CD- Drugs: No Caffeine use: Yes Place of Residence: Home Review of Systems 10-point ROS is otherwise unremarkable General: Weakness, Malaise Respiratory: Shortness of Breath Physical Examination - Vital Signs Temperature: 98 F Blood Pressure: 127/68 Pulse: 63 Respirations: 21 Pulse Ox (%): 91 - Physical Exam General: Mild distress, Obese HEENT: Atraumatic, PERRLA, Mucous membr. moist/pink, EOMI, Sclerae nonicteric Neck: Supple, 2+ carotid pulse no bruit, No LAD, Without JVD or thyroid abnormality Respiratory: Clear to auscultation bilaterally, Normal air movement Cardiovascular: Regular rate/rhythm, Normal S1 S2 Gastrointestinal: Normal bowel sounds, No tenderness Musculoskeletal: No tenderness Integumentary: No rashes Neurological: Normal gait, Normal speech, Normal strength at 5/5 x4 extr, Normal tone, Normal affect Lymphatics: No axilla or inguinal lymphadenopathy - Studies Laboratory Data (last 24 hrs) 08/12/20 14:55: PT 12.2, INR 1.03 08/12/20 14:55: WBC 3.20 L, Hgb 13.0, Hct 39.6, Plt Count 83 L 08/12/20 14:55: Sodium 135 L, Potassium 4.0, BUN 23 H, Creatinine 0.82, Glucose 240 H, Magnesium 1.5 L, Total Bilirubin 0.7, AST 78 H, ALT 41, Alkaline Phosphatase 150 H - Diagnosis (Problem(s)) (1) Pneumonia due to COVID-19 virus Current Visit: Yes Status: Acute Plan: SHE IS STABLE. SHE WILL HAVE ONE MORE DOSE OF IVERMECTINE IN AM. I WILL AVOID ORAL STEROIDS GLUCOSE IS HIGH. I ORDERED BUDESONIDE NEBS AND TALKED TO PHARMACIST MYSELF TO HAVE IT TAKEN CARE OF (2) Diabetes Current Visit: Yes Status: Acute Plan: SHE HAS INSULIN FOR THIS AND WILL RAISE IT NEED. SHE LIVES ALONE AND THERE IS ONE DAUGHTER WHO MAY TAKE CARE OF HER. OTHER DAUGHTER . Qualifiers: Diabetes mellitus type: type 2 - Disposition Disposition: ROUTINE DISCHARGE Condition: FAIR
[2020-08-13] MEDS ORDERED: ASPIRIN EC 81 MG TAB PO ONE (08:14)
[2020-08-13] MEDS ORDERED: INSULIN -REGULAR HUMAN 50 UNIT/0.5 ML ML ONE (08:14)
[2020-08-13] MEDS ORDERED: METHYLPREDNISOLONE 125 MG INJ ONE (08:14)
[2020-08-13] MEDS: RIVAROXABAN 15 MG TABLET PO SCH (08:25)
[2020-08-13] MEDS: METHYLPREDNISOLONE 40 MG INJ IV SCH (08:25)
[2020-08-13] MEDS ORDERED: ASPIRIN EC 81 MG TAB PO SCH (09:00)
[2020-08-13 09:36] VITALS: O2SAT 92
[2020-08-13 13:07] VITALS: BP 151/73
--- NOTE | 2020-08-13 14:24 | EKG ---
Test Date: 2020-08-12 Test Time: 14:41:17 User Support Analyst Supervisor: BEVERLEY MEASUREMENT RESULTS: Intervals: Rate: 83 RI: 174 QRSD: 86 QT: 386 QTc: 453 Wenden: P: 68 RI: 174 QRS: -2 T: 49 INTERPRETIVE STATEMENTS: Normal sinus rhythm Normal ECG Compared to ECG 04/22/2015 11:38:34 No significant changes Electronically Signed On 08-13-20 14:22:58 AERIAL ERECTOR by Abhijit Garza
== END 2020-08-13 13:07 | disposition home or self-care (01) | DRG 177 ==
LOC: ER 13:24 → ERHOLD 18:53
PROVIDERS: ADMIT Internal Medicine; ATTEND Internal Medicine
DX: U07.1 COVID-19 (principal); J12.82 Pneumonia due to coronavirus disease 2019; E11.9 Type 2 diabetes mellitus without complications; E66.9 Obesity, unspecified; Z68.31 Body mass index [BMI] 31.0-31.9, adult; Z79.4 Long term (current) use of insulin; Z79.899 Other long term (current) drug therapy; Z90.49 Acquired absence of other specified parts of digestive tract
CPT/HCPCS: 0240U; 36415; 71045; 71275; 80048; 80061; 80076; 82728; 82947; 83735; 83880; 84484; 85025; 85379; 85610; 86140; 93005; 96365; 96366; 96375; 99284; J2920; J2930; J3475; Q9967

== ENCOUNTER 2020-09-08 10:14 | Inpatient (IN) | payer OTHER ==
--- OUTSIDE RECORDS SUMMARY | 2020-09-08 10:17 | XMS REPORT | Continuity of Care Document ---
:1945 Author Organization [facility] t Address [address] [place] [address] Care Team Providers Name Role Phone Litzy Mitchell Attending Clinician Problems Condition Condition Condition Status Onset Resolution Last Treating Co mments Source Name Details Category Date Date Treatment Clinician Date NEW PT Diagnosis Active 2019-07-29 Mem oria CONSULT - 1-02 08:29:00 l CIRRHOSIS NEW PT 00:00: [place] nn CONSULT - 00 CIRRHOSIS Active 07/16/2019 [facility] Simple Problem Active 2019-07-30 Memor ia obesity 23:57:56 l (disorder) Simple Herm berkley obesity (disorder) Active Problem 07/30/2019 [facility] Arthritis Problem Active 2019-07-30 Me moria (disorder) 23:57:56 l [place] Arthritis (disorder) Active Problem 07/30/2019 [facility] Cirrhosis Problem Active 2019-07-30 Me moria of liver 23:57:56 l (disorder) Sony n Cirrhosis of liver (disorder) Active Problem 07/30/2019 [facility] Diabetes Problem Active 2019-07-30 Mem oria mellitus 23:57:56 l (disorder) Diabetes He rmann mellitus (disorder) Active Problem 07/30/2019 [facility] Disease of Problem Active 2019-07-30 M emoria digestive 23:57:56 l system Disease Lino (disorder) of digestive system (disorder) Active Problem 07/30/2019 [facility] Hypertensi Problem Active 2019-07-30 M emoria ve 23:57:56 l disorder, Lino systemic Hypertensi arterial ve (disorder) disorder, systemic arterial (disorder) Active Problem 07/30/2019 [facility] Allergies, Adverse Reactions, Alerts This patient has no known allergies or adverse reactions. Social History Social Habit Start Date Stop Date Quantity Comments Source Social History 2019-07-28 2019-07-28 [facility] 18:46:54 18:46:54 Medications Ordered Filled Start Stop Current Ordering Indication Dosage Frequency Signature Comments Components Source Medication Medication Date Date Medication? Clinician (SIG) Name Name pantoprazol 2020-0 Yes 40 mg = 1 M emoria e 40 mg 1-14 tab, PO, l oral 18:48: Daily, 3 Lino enteric 00 Refill(s) coated tablet omeprazole 2020-0 [...] FlexTouch 14 SUB-Q, l 18:48: Daily, 0 Cumming 00 Refill(s) magnesium 2020-0 Yes 400 mg = 1 Me moria oxide 400 -14 tab, PO, l mg oral 18:48: Daily, 1 Sony n tablet 00 Refill(s) irbesartan 2019-0 Yes 300 mg = 1 M emoria 300 mg oral 1-14 tab, PO, l tablet 18:48: Daily, 0 Cum[place] 00 Refill(s) tramadol 2020-0 Yes 50 mg = 1 Jeffrey natali hydrochlori -14 tab, PO, l de 50 MG 18:48: Q8H, PRN [place] nn Oral Tablet 00 Pain, 0 Refill(s) Milk 2020-0 No 0 Memoria Thistle -14 Refill(s) l 18:48: [place] 00 non-formula 2020-0 No TURMERIC Me moria ry -14 DIALY, l 18:48: Refill(s) [place] 00 0 Vital Signs Vital Name Observation Time Observation Value Comments Source Systolic (mm Hg) 2019-07-28 18:32:00 Jeffrey rial [place] Diastolic (mm Hg) 2019-07-28 18:32:00 Mem orial Lino Heart Rate 2019-07-28 18:32:00 [facility] [place] Respitory Rate 2019-07-28 18:32:00 Memori al Lino Height 2019-07-28 18:32:00 166.37 cm [facility] Lino Weight 2019-07-28 18:32:00 [facility] L[place] BMI Calculated 2019-07-28 18:32:00 Memori al Lino Procedures Procedure Date / Time Performed Performing Clinician [facility] e Abdominal tap [facility] [place] Appendectomy [facility] [place] Colonoscopy<sup>1</sup> [facility] [place] Endoscopy<sup>2</sup> [facility] H ermann Tonsillectomy [facility] [place] Encounters Start End Encounter Admission Attending Care Care Encounter Source Date/Time Date/Time Type Type Clinicians Facility Department ID 2019-07-28 2019-07-28 Outpatient [facility] [id number] 12:27:00 23:59:00 Patricia 00 Litzy 2019-07-28 2019-07-28 Outpatient [facility] MED [id number] [facility] 12:27:00 12:27:00 Results Test Description Test Time Test Comments Results Result Comments Source ANEMIA STUDY 2019-07-28 359 [facility] Her hutchison [...] = A/G Ratio) 1.1 1 0.7-1.6 [facility] UdzaehbYCNSRDWTWX0914-71-85 19:58:007.1[facility] HermannHEMATOLOGY 2019-07-28 19:58:004.49[facility] BgedscjLBVVVFFFWE2156-42-44 19:58:0012.3[facility] FodanwuDUOKDHYDCP6923-32-67 19:58:0037.8[facility] MalrfynKUDMMUJKFT0106-28-54 19:58:0084.2[facility] QzpsdrbXJXSQPYVVC0878-42-35 19:58:00 Test Item Value Reference Range Interpretation Comments MCH (test code = MCH) 27.5 pg 27.0-31.0 [facility] LwzzflhPLEKCOMBBJ2686-22-26 19:58:0032.6[facility] HermannHEMATOLOGY 2019-07-28 19:58:0015.1[facility] PfjxbohBZZJBRVXET2770-93-36 19:58:34170Oxuvrode AqemebqDOCONQVEWW7344-51-42 19:58:0010.3[facility] PsvhdfaCWIUICZOJE5797-05-94 19:58:00 Test Item Value Reference Range Interpretation Comments PT (test code = PT) 14.2 s 12.0-14.7 [facility] SjdrniqVYJTWRUKDA1077-15-24 19:58:00 Test Item Value Reference Range Interpretation Comments INR (test code = INR) 1.10 1 0.85-1.17 [facility] SvqovlyCIGZUCMYOW5804-21-67 19:58:0039.9[facility] HermannHEMATOLOGY 2019-07-28 19:58:0051.4[facility] PrqvyhkSXGZOVYAOT7241-26-01 19:58:005.5[facility] WevksstMHUTWNMMOD3603-68-04 19:58:002.7[facility] VnfrelcNQVPBQBJLE8033-80-11 19:58:000.5[facility] VtpynekMYQASWXHJM9861-62-54 19:58:002.8[facility] Lino GQTRGZBRLY3035-28-91 19:58:003.6[facility] LreihwaVPJDABOLIG5256-53-17 19:58:000.4 [facility] SrhzyrsKRDRHTEHAZ8620-86-62 19:58:000.2[facility] HermannIMMUNOLOGY 2019-07-28 19:58:00Negative *NA*(07/28/19 1:58 PM)[facility] HermannIMMUNOLOGY 2019-07-28 19:58:0079.4[facility] NuptldeOMVHFREKLM5317-68-86 19:58:00Negative *NA*(07/28/19 1:58 PM)[facility] MunjhavXINTLDBTQX9407-30-37 19:58:00Positive *NA*(07/28/19 1:58 PM)[facility] EdgowrgUYDOXJQKKU3786-45-21 19:58:00Positive *NA*(07/28/19 1:58 PM)[facility] OjyqxpcYKXDFLFSSX1603-02-80 19:58:00Negative (07/28/19 1:58 PM)[facility] VdbtjfbVYNGOTDLAJ6317-23-88 19:58:00Negative (07/28/19 1:58 PM)[facility] FioroaoMIXKBMMFAI5469-96-16 19:58:00Negative (07/28/19 1:58 PM) [facility] GjykusrXRAQSCAYEC7546-63-13 19:58:24657Nvpevnrt HermannIMMUNOLOGY 2019-07-28 19:58:0030[facility] ZujjmxnJPDCOKAQZH2401-59-58 19:58:903102Wilcuzep HermannTUMOR KLWEEQK3981-97-17 19:58:004.8[facility] HermannANEMIA TEWWA8475-52-91 19:58:0057[facility] HermannANEMIA CNIQT3168-05-30 19:58:18222Nkekhmpv Lino ANEMIA GXALR2802-48-25 19:58:0015Mepuja Huynh
[2020-09-08 10:51] LABS: Absolute Lymphocytes (CBC) 1.9 K/uL (0.7-4.9); Basophils % 0.8 % (0-1.3); Hematocrit 32.1 % (36.0-45.0); Lymphocytes % 25.3 % (15.3-44.8); MPV 9.9 fL (7.6-11.3); RBC Red Blood Cell Count 3.68 M/uL (3.86-4.86)
[2020-09-08 10:55] LABS: Protime INR 1.39
[2020-09-08] MEDS ORDERED: NA CHLORIDE 0.9% 500 ML ONE (10:55)
[2020-09-08] MEDS ORDERED: NA CHLORIDE 0.9% 2,000 ML ONE (10:56)
[2020-09-08 11:04] LABS: ALT/SGPT 41 U/L (12-78); AST/SGOT 32 U/L (15-37); Albumin 2.3 g/dL (3.4-5.0); Alkaline Phosphatase 169 U/L (45-117); Amylase 34 U/L (25-115); BUN Blood Urea Nitrogen 16 mg/dL (7-18); Bicarbonate 30 mmol/L (21-32); Bilirubin Direct 0.3 mg/dL (0-0.2); CKMB Creatine Kinase MB 1.4 ng/mL (0.3-3.6); Creatine Phosphokinase 51 U/L (26-192); Glucose Level 183 mg/dL (74-106); Lipase 131 U/L (73-393); Potassium 3.9 mmol/L (3.5-5.1); Protein, Total 6.3 g/dL (6.4-8.2); Sodium Level 137 mmol/L (136-145); Troponin (Emerg Dept Use Only) < 0.02 ng/mL (0.0-0.045)
[2020-09-08] MEDS ORDERED: LEVALBUTEROL 1.25 MG/3 ML NEB ONE (11:30)
[2020-09-08] MEDS ORDERED: CEFTRIAXONE/SWI 1gm 1 GM/10 ML SYR ONE (11:36)
--- NOTE | 2020-09-08 11:37 | RAD REPORT ---
EXAM DESCRIPTION: RAD - Chest Single View - 09/08/2020 11:16 am CLINICAL HISTORY: Cough;SOB, COVID positive late July COMPARISON: Portable August 12 TECHNIQUE: AP portable chest image was obtained 09/08/2020 11:16 am . FINDINGS: Lung volumes are very low which limits the examination. Interstitial and alveolar opacitie s are present in both lung campos. Heart size is magnified by portable technique and low lung volumes . No pneumothorax or large pleural effusion. IMPRESSION: Very limited low lung volume examination showing bilateral pneumonia pattern.
--- NOTE | 2020-09-08 11:51 | RAD REPORT ---
EXAM DESCRIPTION: CT - Chest For Pe Angio - 09/08/2020 11:36 am CLINICAL HISTORY: Chest pain;SOB COMPARISON: Chest For Pe Angio dated 08/12/2020; Chest Single View dated 09/08/2020 TECHNIQUE: Dynamically enhanced 3 mm thick images of the chest were obtained during administration o f approximately 150mL Isovue 370 IV contrast. Coronal and oblique MIP reconstruction images were gene rated and reviewed. Exam utilizes a protocol to evaluate the pulmonary arterial tree. All CT scans are performed using dose optimization technique as appropriate and may include automated exposure control or mA/KV adjustment according to patient size. FINDINGS: Thyroid gland is enlarged extending into the upper mediastinum. This is similar to the rec ent study. No pulmonary emboli are identified. The exam has significant respiration and body movement artifact. Far peripheral branch assessment is limited. Probability of clinically significant pulmonary embolic disease is felt to be very low. The aorta as imaged shows no acute or suspicious finding. No pericardial thickening or effusion. Mild cardiomegaly is present. Interstitial and alveolar opacification present throughout both lower lobes, the lingula and to a les ser extent the bilateral upper lobes. Right middle lobe is generally spared. Findings are more pronou nced than seen August 12. Given the provided history, bilateral COVID-19 pneumonia is most likely. No pleural effusion or pleural thickening. No mediastinal or hilar suspicious masses. No chest wall masses or abnormal axillary lymphadenopathy. Limited upper abdomen imaging shows nodular contour to the hepatic parenchyma. Ascites is present in the upper abdomen new from the prior examination. IMPRESSION: No pulmonary emboli identified. Extensive interstitial and alveolar opacification consistent with a bilateral COVID-19 pneumonia. Fin dings are slightly worse than August 12 imaging. Limited upper abdomen imaging shows development of ascites since August 12 examination. Full extent of ascites cannot be assessed on this study.
[2020-09-08] MEDS ORDERED: ALBUTEROL 2.5 MG/3 ML NEB SOL NEB PRN (14:18)
[2020-09-08] MEDS ORDERED: IPRATROPIUM BROM 0.5MG/2.5ML NEB PRN (14:18)
[2020-09-08] MEDS ORDERED: ONDANSETRON 4 MG/2 ML VIAL IV PRN (14:18)
--- NOTE | 2020-09-08 14:18 | EDPHYS ---
Physician Documentation [facility] Name: Samantha Velasquez Age: 74 yrs Sex: Female : 1945 Arrival Date: 09/08/2020 Time: 10:17 Bed 26 Private MD: ED Physician Johan aBiley HPI: 09/09 15:49 This 74 yrs old Female presents to ER via EMS with complaints of Shortness Of kdr Breath. 15:49 The patient has shortness of breath at rest, with light activity. Onset: The kdr symptoms/episode began/occurred gradually, 2 day(s) ago. Duration: The symptoms are continuous, and are steadily getting worse. The patient's shortness of breath is aggravated by exertion, light activity, walking. Associated signs and symptoms: Pertinent positives: non-productive cough, Pertinent negatives: diaphoresis, hemoptysis, nausea, numbness in extremities, visual changes. Severity of symptoms: At their worst the symptoms were moderate in the emergency department the symptoms are unchanged. The patient has experienced a previous episode, last week, Patient had been recovering from COVID. The patient has been recently seen by a physician: the patient's primary care provider. Historical: - Allergies: 09/08 10:25 No Known Allergies; ca1 - Home Meds: 10:25 budesonide 1 mg/2 mL inhalation nbsp 2 mL once daily [Active]; duloxetine 60 mg oral ca1 cpDR 1 cap once daily [Active]; metronidazole 500 mg Oral tab [Active]; Avapro 300 mg Oral tab 1 tab once daily [Active]; Xarelto 20 mg oral tab 1 tab once daily [Active]; - PMHx: 10:25 Diabetes - NIDDM; Hypertension; ca1 - PSHx: 10:25 Appendectomy; ca1 - Immunization history:: Flu vaccine is up to date. - Social history:: Smoking status: Patient denies any tobacco usage or history of. ROS: 09/09 15:49 Constitutional: Negative for fever, chills, and weight loss, Eyes: Negative for injury, kdr pain, redness, and discharge, ENT: Negative for injury, pain, and discharge, Neck: Negative for injury, pain, and swelling, Cardiovascular: Negative for chest pain, palpitations, and edema, Abdomen/GI: Negative for abdominal pain, nausea, vomiting, diarrhea, and constipation, Back: Negative for injury and pain, : Negative for injury, bleeding, discharge, and swelling, MS/Extremity: Negative for injury and deformity, Skin: Negative for injury, rash, and discoloration, Neuro: Negative for headache, weakness, numbness, tingling, and seizure activity. Psych: Negative for depression, anxiety, suicide ideation, homicidal ideation, and hallucinations, Allergy/Immunology: Negative for hives, rash, and allergies, Endocrine: Negative for neck swelling, polydipsia, polyuria, polyphagia, and marked weight changes, Hematologic/Lymphatic: Negative for swollen nodes, abnormal bleeding, and unusual bruising. Respiratory: Positive for cough, with no reported sputum, dyspnea on exertion, shortness of breath, at rest. wheezing. Exam: 09/08 11:43 ECG was reviewed by the Attending Physician. kdr 09/09 15:49 Constitutional: This is a well developed, well nourished patient who is awake, alert, kdr and in mild to moderate distress. Head/Face: Normocephalic, atraumatic. Eyes: Pupils equal round and reactive to light, extra-ocular motions intact. Lids and lashes normal. Conjunctiva and sclera are non-icteric and not injected. Cornea within normal limits. Periorbital areas with no swelling, redness, or edema. Neck: Trachea midline, no thyromegaly or masses palpated, and no cervical lymphadenopathy. Supple, full range of motion without nuchal rigidity, or vertebral point tenderness. No Meningismus. Chest/axilla: Normal chest wall appearance and motion. Nontender with no deformity. No lesions are appreciated. Cardiovascular: Regular rate and rhythm with a normal S1 and S2. No gallops, murmurs, or rubs. Normal PMI, no JVD. No pulse deficits. Abdomen/GI: Soft, non-tender, with normal bowel sounds. No distension or tympany. No guarding or rebound. No evidence of tenderness throughout. Back: No spinal tenderness. No costovertebral tenderness. Full range of motion. Skin: Warm, dry with normal turgor. Normal color with no rashes, no lesions, and no evidence of cellulitis. MS/ Extremity: Pulses equal, no cyanosis. Neurovascular intact. Full, normal range of motion. Neuro: Awake and alert, GCS 15, oriented to person, place, time, and situation. Cranial nerves II-XII grossly intact. Motor strength 5/5 in all extremities. Sensory grossly intact. Cerebellar exam normal. Normal gait. Respiratory: mild respiratory distress is noted, moderate respiratory distress is noted, Respirations: labored breathing, that is mild, nasal flaring, shallow respirations, that is mild, Breath sounds: rales, + upper airway congestion. wheezing: Vital Signs: 09/08 10:19 BP 161 / 86; Pulse 110; Resp 33 S; Temp 98.4(O); Pulse Ox 96% on Non-rebreather mask; ca1 Weight 89.81 kg (R); Height 5 ft. 5 in. (165.10 cm) (R); Pain 0/10; 10:25 Resp 26 S; ca1 11:20 BP 167 / 72; Pulse 106; Resp 27; Pulse Ox 98% on Non-rebreather mask; ca1 12:29 BP 148 / 79; Pulse 117; Resp 33 S; Pulse Ox 98% on Non-rebreather mask; ca1 13:00 BP 148 / 63; Pulse 115; Resp 29 S; Pulse Ox 98% on Non-rebreather mask; ca1 13:42 BP 154 / 67; Pulse 107; Resp 35 A; Pulse Ox 99% on BiPAP; ca1 13:55 Resp 30 A; ca1 14:50 BP 160 / 68; Pulse 113; Resp 27 A; Pulse Ox 95% on BiPAP; ca1 15:14 BP 161 / 74; Pulse 108; Resp 27 A; Pulse Ox 99% on BiPAP; ca1 15:45 BP 161 / 70; Pulse 102; Resp 29 A; Pulse Ox 98% on BiPAP; ca1 16:30 BP 152 / 59; Pulse 102; Resp 25 A; Pulse Ox 99% on BiPAP; ca1 17:30 BP 136 / 64; Pulse 100; Resp 28 A; Pulse Ox 96% on BiPAP; ca1 18:30 BP 143 / 72; Pulse 99; Resp 28 A; Pulse Ox 97% on BiPAP; ca1 10:19 Body Mass Index 32.95 (89.81 kg, 165.10 cm) ca1 MDM: 14:17 Patient medically screened. kdr 09/09 15:49 Data reviewed: vital signs, nurses notes, lab test result(s), radiologic studies. kdr Counseling: I had a detailed discussion with the patient and/or guardian regarding: the historical points, exam findings, and any diagnostic results supporting the discharge/admit diagnosis, lab results, radiology results, the need for further work-up and treatment in the hospital. Physician consultation: Wayne Mathis MD regarding admission. Physician consultation: Cynthia Ortiz MD regarding and will see patient in ED, shortly. 09/08 10:28 Order name: Amylase, Serum 09/08 10:28 Order name: Basic Metabolic Panel 09/08 10:28 Order name: Blood Culture Adult (2) 09/08 10:28 Order name: CBC with Diff 09/08 10:28 Order name: Ckmb 09/08 10:28 Order name: CPK 09/08 10:28 Order name: Lactate 09/08 10:28 Order name: LFT's 09/08 10:28 Order name: Lipase; Complete Time: 11:15 09/08 10:28 Order name: Procalcitonin; Complete Time: 11:15 09/08 10:28 Order name: Protime (+inr); Complete Time: 11:15 09/08 10:28 Order name: Ptt, Activated; Complete Time: 11:15 09/08 10:28 Order name: Troponin (emerg Dept Use Only); Complete Time: 11:15 09/08 10:28 Order name: Urine Microscopic Only; Complete Time: 15:39 09/08 10:28 Order name: Amylase; Complete Time: 11:15 09/08 10:28 Order name: Basic Metabolic Panel; Complete Time: 11:15 09/08 10:28 Order name: Blood Culture 09/08 10:28 Order name: CBC with Automated Diff; Complete Time: 11:04 09/08 10:28 Order name: CKMB Creatine Kinase MB; Complete Time: 11:15 09/08 10:28 Order name: Creatine Phosphokinase; Complete Time: 11:15 09/08 10:29 Order name: Lactate; Complete Time: 11:15 09/08 10:29 Order name: Liver (Hepatic) Function; Complete Time: 11:15 09/08 10:46 Order name: Glucose, Ancillary Testing; Complete Time: 11:04 09/08 14:23 Order name: Basic Metabolic Panel [facility] 09/08 14:23 Order name: Basic Metabolic Panel [facility] 09/08 14:23 Order name: CBC with Automated Diff [facility] 09/08 14:23 Order name: CBC with Automated Diff [facility] 09/08 14:23 Order name: NT PRO-BNP [facility] 09/08 14:23 Order name: NT PRO-BNP [facility] 09/08 14:23 Order name: Troponin I [facility] 09/08 10:28 Order name: Chest Single View XRAY; Complete Time: 14:05 [facility] 09/08 10:28 Order name: Accucheck; Complete Time: 10:34 09/08 10:28 Order name: Cardiac monitoring; Complete Time: 10: [facility] 09/08 10:28 Order name: EKG - Nurse/Tech; Complete Time: 10:51 09/08 10:28 Order name: IV Saline Lock - Large Bore; Complete Time: 10: 09/08 10:28 Order name: Labs collected and sent; Complete Time: 10: [facility] 09/08 10:28 Order name: O2 Per Protocol; Complete Time: 10: 09/08 10:28 Order name: O2 Sat Monitoring; Complete Time: 10: [facility] 09/08 10:28 Order name: Urine Dipstick-Ancillary (obtain specimen); Complete Time: 15:22 [facility] 09/08 11:01 Order name: CT Chest For PE Angio; Complete Time: 14:05 kdr 09/08 14:04 Order name: BIPAP [facility] 09/08 14:07 Order name: CT Abd/Pelvis - Without Contrast; Complete Time: 15:39 kdr 09/08 14:23 Order name: Regular [facility] 09/08 14:23 Order name: Troponin I [facility] 09/08 14:23 Order name: Troponin I [facility] 09/08 14:41 Order name: Urine Dipstick--Ancillary (enter results); Complete Time: 15:39 em1 09/08 15:23 Order name: Urine Culture [facility] 09/08 16:44 Order name: Respiratory Therapy Consult EDWA EC/25 11:43 Rate is 106 beats/min. Rhythm is regular, Sinus tachycardia with No ectopy. QRS Nunda is kdr Normal. IN interval is normal. QRS interval is normal. QT interval is normal. Clinical impression: NSR w/ Non-specific ST/T Changes. Administered Medications: 10:39 Drug: NS 0.9% (30 ml/kg) 30 ml/kg Route: IV; Rate: bolus; Site: left antecubital; ca1 11:10 Drug: Xopenex (3) 1.25 mg Route: Inhalation; ca1 11:19 Drug: Rocephin 1 grams Route: IV; Rate: calculated rate; Site: left antecubital; ca1 12:31 Follow up: Response: No adverse reaction; IV Status: Completed infusion ca1 14:20 Drug: Decadron - Dexamethasone 10 mg Route: IVP; Site: left antecubital; ca1 15:22 Follow up: Response: No adverse reaction; Marked relief of symptoms ca1 14:27 Drug: vancoMYCIN 1 grams Route: IVPB; Infused Over: 2 hrs; Site: left antecubital; ca1 15:30 Follow up: Response: No adverse reaction; IV Status: Completed infusion; IV Intake: ca1 250ml Disposition: 09/08/20 14:17 Hospitalization ordered by Wayne Mathis for Inpatient Admission. Preliminary diagnosis are COVID Pneumonia: Worsening, Shortness of breath. - Bed requested for Telemetry/MedSurg (Inpatient). - Status is Inpatient Admission. zb - Condition is Fair. - Problem is an acute exacerbation. - Symptoms have improved. Signatures: Dispatcher [employer] [facility] Leticia Merritt RN RN Johan Bailey MD MD [facility] Renea Coronado RN RN aa5 Shannan Dupont RN RN ca1 Brown, Zipporah, RN RN zb Corrections: (The following items were deleted from the chart) 16:47 16:43 CONS Physician Consult ordered. [facility] 18:36 14:17 Hospitalization Ordered by Wayne Mathis MD for Inpatient Admission. Preliminary dw diagnosis is COVID Pneumonia: Worsening; Shortness of breath. Bed requested for Telemetry/MedSurg (Inpatient). Status is Inpatient Admission. Condition is Fair. Problem is an acute exacerbation. Symptoms have improved. kdr 20:41 18:36 09/08/2020 14:17 Hospitalization Ordered by Wayne Mathis MD for Inpatient zb Admission. Preliminary diagnosis is COVID Pneumonia: Worsening; Shortness of breath. Bed requested for Telemetry/MedSurg (Inpatient). Status is Inpatient Admission. Condition is Fair. Problem is an acute exacerbation. Symptoms have improved. dw
--- NOTE | 2020-09-08 14:18 | ER ---
Nurse's Notes [facility] Name: Samantha Velasquez Age: 74 yrs Sex: Female : 1945 Arrival Date: 09/08/2020 Time: 10:17 Bed 26 Private MD: Diagnosis: COVID Pneumonia: Worsening;Shortness of breath Presentation: 09/08 10:19 Chief complaint: EMS states: Covid+ 08/06/2020. S/S started 08/05/2020. [place] better until ca1 2 days ago. Reports cough and SOB. Reports O2 sat at 45% ambulating at home. Upon arrival on scene O2 sat at 85% RA. NRB started O2 Sat up to 95%. Temp 99.4F, HR 111. IV started G18 LAC, NS 250ML bolus given. Coronavirus screen: Client reports previous positive COVID test result. Date of collection: August 06, 2020 Staff notified of need for isolation. Ebola Screen: Patient negative for fever greater than or equal to 101.5 degrees Fahrenheit, and additional compatible Ebola Virus Disease symptoms Patient denies exposure to infectious person. Patient denies travel to an Ebola-affected area in the 21 days before illness onset. No symptoms or risks identified at this time. Initial Sepsis Screen: Does the patient meet any 2 criteria? RR > 20 per min. HR > 90 bpm. Does the patient have a suspected source of infection? Yes: Productive cough/pneumonia. Risk Assessment: Do you want to hurt yourself or someone else? Patient reports no desire to harm self or others. Onset of symptoms was September 08, 2020. 10:19 Acuity: JAVIER 2 ca1 10:19 Method Of Arrival: EMS: [facility] ca1 Historical: - Allergies: 10:25 No Known Allergies; ca1 - Home Meds: 10:25 budesonide 1 mg/2 mL inhalation nbsp 2 mL once daily [Active]; duloxetine 60 mg oral ca1 cpDR 1 cap once daily [Active]; metronidazole 500 mg Oral tab [Active]; Avapro 300 mg Oral tab 1 tab once daily [Active]; Xarelto 20 mg oral tab 1 tab once daily [Active]; - PMHx: 10:25 Diabetes - NIDDM; Hypertension; ca1 - PSHx: 10:25 Appendectomy; ca1 - Immunization history:: Flu vaccine is up to date. - Social history:: Smoking status: Patient denies any tobacco usage or history of. Screenin:25 Abuse screen: Denies threats or abuse. Denies injuries from another. Nutritional ca1 screening: No deficits noted. Tuberculosis screening: No symptoms or risk factors identified. Fall Risk IV access (20 points). Assessment: 10:29 General: Appears in no apparent distress. Behavior is calm, cooperative, appropriate ca1 for age. Pain: Denies pain. Neuro: Level of Consciousness is awake, alert, obeys commands, Oriented to person, place, time, situation. Cardiovascular: Heart tones S1 S2 present Capillary refill < 3 seconds Patient's skin is warm and dry. Rhythm is sinus tachycardia. Respiratory: Reports shortness of breath at rest cough that is since yesterday Airway is patent Respiratory effort is even, labored, Respiratory pattern is regular, symmetrical, tachypnea Breath sounds with rales bilaterally. GI: Abdomen is round non-distended, Bowel sounds present X 4 quads. Abd is soft and non tender X 4 quads. : No signs and/or symptoms were reported regarding the genitourinary system. EENT: No signs and/or symptoms were reported regarding the EENT system. Derm: Skin is intact, is healthy with good turgor, Skin is pink, warm \T\ dry. Musculoskeletal: Circulation, motion, and sensation intact. Capillary refill < 3 seconds. 11:20 Reassessment: Patient appears in no apparent distress at this time. No changes from ca1 previously documented assessment. Patient and/or family updated on plan of care and expected duration. Pain level reassessed. 12:29 Reassessment: Patient appears in no apparent distress at this time. No changes from ca1 previously documented assessment. Patient and/or family updated on plan of care and expected duration. Pain level reassessed. 13:30 Reassessment: Patient appears in no apparent distress at this time. No changes from ca1 previously documented assessment. Patient and/or family updated on plan of care and expected duration. Pain level reassessed. Notified Dr. Bailey, pt's breathing labored and tachypneic. RT notified for BiPAP. 13:42 Respiratory: Airway is patent Respiratory effort is even, unlabored, Respiratory ca1 pattern is regular, symmetrical, Patient placed on BiPAP: Inspiratory Pressure: 12 Expiratory (EPAP) Pressure: 8 FiO2%: 75 Respiratory Rate: 30. 14:45 Reassessment: Patient appears in no apparent distress at this time. Patient and/or ca1 family updated on plan of care and expected duration. Pain level reassessed. Patient is alert, oriented x 3, equal unlabored respirations, skin warm/dry/pink. 15:23 Reassessment: daughter Meseret [phone]. ca1 15:45 Reassessment: Patient appears in no apparent distress at this time. Patient and/or ca1 family updated on plan of care and expected duration. Pain level reassessed. Patient is alert, oriented x 3, equal unlabored respirations, skin warm/dry/pink. 16:31 Respiratory: Patient placed on BiPAP: FiO2%: 60. ca1 17:34 Reassessment: Patient appears in no apparent distress at this time. Patient and/or ca1 family updated on plan of care and expected duration. Pain level reassessed. Patient is alert, oriented x 3, equal unlabored respirations, skin warm/dry/pink. 18:43 Reassessment: Patient appears in no apparent distress at this time. Patient and/or ca1 family updated on plan of care and expected duration. Pain level reassessed. Patient is alert, oriented x 3, equal unlabored respirations, skin warm/dry/pink. 20:37 Reassessment: patient transferred up stairs with non-rebreather. respiratory. and ER zb tech. Vital Signs: 10:19 BP 161 / 86; Pulse 110; Resp 33 S; Temp 98.4(O); Pulse Ox 96% on Non-rebreather mask; ca1 Weight 89.81 kg (R); Height 5 ft. 5 in. (165.10 cm) (R); Pain 0/10; 10:25 Resp 26 S; ca1 11:20 BP 167 / 72; Pulse 106; Resp 27; Pulse Ox 98% on Non-rebreather mask; ca1 12:29 BP 148 / 79; Pulse 117; Resp 33 S; Pulse Ox 98% on Non-rebreather mask; ca1 13:00 BP 148 / 63; Pulse 115; Resp 29 S; Pulse Ox 98% on Non-rebreather mask; ca1 13:42 BP 154 / 67; Pulse 107; Resp 35 A; Pulse Ox 99% on BiPAP; ca1 13:55 Resp 30 A; ca1 14:50 BP 160 / 68; Pulse 113; Resp 27 A; Pulse Ox 95% on BiPAP; ca1 15:14 BP 161 / 74; Pulse 108; Resp 27 A; Pulse Ox 99% on BiPAP; ca1 15:45 BP 161 / 70; Pulse 102; Resp 29 A; Pulse Ox 98% on BiPAP; ca1 16:30 BP 152 / 59; Pulse 102; Resp 25 A; Pulse Ox 99% on BiPAP; ca1 17:30 BP 136 / 64; Pulse 100; Resp 28 A; Pulse Ox 96% on BiPAP; ca1 18:30 BP 143 / 72; Pulse 99; Resp 28 A; Pulse Ox 97% on BiPAP; ca1 10:19 Body Mass Index 32.95 (89.81 kg, 165.10 cm) ca1 ED Course: 10:17 Patient arrived in ED. em1 10:18 Shannan Dupont, RN is Primary Nurse. ca1 10:23 Triage completed. ca1 10:25 Arm band placed on right wrist. ca1 10:25 Patient has correct armband on for positive identification. Bed in low position. Call ca1 light in reach. Side rails up X2. cardiac monitor on. Pulse ox on. NIBP on. 10:25 No provider procedures requiring assistance completed. Maintain EMS IV. Dressing ca1 intact. Good blood return noted. Site clean \T\ dry. Gauge \T\ site: 18G LAC. 10:29 Johan Bailey MD is Attending Physician. kdr 11:16 Chest Single View XRAY In Process Unspecified. EDMS 11:36 CT Chest For PE Angio In Process Unspecified. EDMS 14:16 Wayne Mathis MD is Hospitalizing Provider. kdr 14:47 CT Abd/Pelvis - Without Contrast In Process Unspecified. EDMS 20:11 Patient admitted, IV remains in place. zb Administered Medications: 10:39 Drug: NS 0.9% (30 ml/kg) 30 ml/kg Route: IV; Rate: bolus; Site: left antecubital; ca1 11:10 Drug: Xopenex (3) 1.25 mg Route: Inhalation; ca1 11:19 Drug: Rocephin 1 grams Route: IV; Rate: calculated rate; Site: left antecubital; ca1 12:31 Follow up: Response: No adverse reaction; IV Status: Completed infusion ca1 14:20 Drug: Decadron - Dexamethasone 10 mg Route: IVP; Site: left antecubital; ca1 15:22 Follow up: Response: No adverse reaction; Marked relief of symptoms ca1 14:27 Drug: vancoMYCIN 1 grams Route: IVPB; Infused Over: 2 hrs; Site: left antecubital; ca1 15:30 Follow up: Response: No adverse reaction; IV Status: Completed infusion; IV Intake: ca1 250ml Intake: 14:30 IV: 1000ml; Total: 1000ml. ca1 15:30 IV: 250ml; Total: 1250ml. ca1 15:30 IV: 1000ml; Total: 2250ml. ca1 Outcome: 14:17 Decision to Hospitalize by Provider. kdr 20:10 Admitted to ICU accompanied by tech, via stretcher, room 407, with oxygen, with chart, zb Other pt transported with portable pulse ox. Report called to HUMBERTO Medley 20:10 Condition: stable 20:10 Instructed on the need for admit, Demonstrated understanding of instructions. 20:41 Patient left the ED. zb Signatures: Dispatcher [employer] EDMS Johan Bailey MD MD kdr Martinez, Eric em1 Shannan Dupont RN RN ca1 Blanquita Marroquin RN RN zb Corrections: (The following items were deleted from the chart) 12:35 10:29 General: Appears in no apparent distress. Behavior is calm, cooperative, ca1 appropriate for age, ca1 12:35 11:20 Reassessment: Patient appears in no apparent distress at this time. No changes ca1 from previously documented assessment. Patient and/or family updated on plan of care and expected duration. Pain level reassessed. Patient is alert, oriented x 3, equal unlabored respirations, skin warm/dry/pink. ca1 12:35 12:29 Reassessment: Patient appears in no apparent distress at this time. No changes ca1 from previously documented assessment. Patient and/or family updated on plan of care and expected duration. Pain level reassessed. Patient is alert, oriented x 3, equal unlabored respirations, skin warm/dry/pink. ca1 13:54 13:50 Respiratory: Airway is patent Respiratory effort is even, unlabored, Respiratory ca1 pattern is regular, symmetrical, Patient placed on BiPAP: Inspiratory Pressure: 12 Expiratory (EPAP) Pressure: 8 FiO2%: 75 Respiratory Rate: 30 ca1 15:13 14:50 Reassessment: Patient appears in no apparent distress at this time. Patient ca1 and/or family updated on plan of care and expected duration. Pain level reassessed. Patient is alert, oriented x 3, equal unlabored respirations, skin warm/dry/pink. ca1 17:34 16:31 Respiratory: Patient placed on BiPAP: FiO2%: 60 ca1 ca1 18:44 17:34 Reassessment: Patient appears in no apparent distress at this time. No changes ca1 from previously documented assessment. Patient and/or family updated on plan of care and expected duration. Pain level reassessed. Patient is alert, oriented x 3, equal unlabored respirations, skin warm/dry/pink. ca1 20:41 20:10 Admitted to ICU accompanied by tech, room 407, with oxygen, with chart, Report zb called to HUMBERTO Medley zb
[2020-09-08] MEDS ORDERED: VANCOMYCIN/NS 1 gm 1 GM/250 ML BAG IVPB ONE (14:30)
[2020-09-08] MEDS ORDERED: dexAMETHasone 10 MG/ML VIAL ONE (14:34)
--- NOTE | 2020-09-08 15:17 | RAD REPORT ---
EXAM DESCRIPTION: CT - Abdomen Pelvis Wo Contrast - 09/08/2020 2:47 pm CLINICAL HISTORY: Abdominal pain COMPARISON: April 2020 TECHNIQUE: Computed axial tomography of the abdomen and pelvis was obtained. IV and oral contrast we re not requested. All CT scans are performed using dose optimization technique as appropriate and may include automated exposure control or mA/KV adjustment according to patient size. FINDINGS: The evaluation of solid organs, vessels and bowel is limited secondary to the lack of con trast administration. Moderate opacities lung bases. Cirrhotic liver. Mild splenomegaly The pancreas and adrenals grossly normal. Small renal cysts. No evidence of diverticulitis. The contrast within the genitourinary system secondary to a CT chest w ith IV contrast earlier on the day. Moderate ascites. Small hiatal hernia IMPRESSION: Cirrhosis with moderate ascites
[2020-09-08 15:22] LABS: Urine Bacteria <20 /HPF (<20); Urine Mucus 1+ /HPF (NONE SEEN); Urine RBC <5 /HPF (NONE SEEN)
[2020-09-08 15:22] LABS: Urine Blood 2+ (NEG); Urine Glucose NEGATIVE (NEG); Urine Protein NEGATIVE (NEG); Urine Specific Gravity 1.015 (1.005-1.030)
[2020-09-08] MEDS ORDERED: BENZONATATE 100 MG CAP PO PRN (16:37)
[2020-09-08] MEDS ORDERED: GLUCAGON 1 MG/VIAL IM PRN (16:57)
[2020-09-08] MEDS: ASCORBIC ACID 500 MG TABLET PO SCH ×2 (17:00→22:13)
--- NOTE | 2020-09-08 17:00 | P.HP ---
Certification for Inpatient Patient admitted to: Inpatient With expected LOS: >2 Midnights Patient will require the following post-hospital care: None Practitioner: I am a practitioner with admitting privileges, knowledge of patient current condition, hospital course, and medical plan of care. Services: Services provided to patient in accordance with Admission requirements found in Title 42 Section 412.3 of the Code of Federal Regulations Patient History Date of Service: 09/08/20 Primary Care Provider: Dr. Mathis Reason for admission: bilateral covid pneumonia History of Present Illness: Ms. Velasquez is a 74yo F with HTN, DM, cirrhosis, and recurrent UTI here today for worsening SOB after COVID+ diagnosis on 08/06. She was seen in the hospital on 08/12 and was discharged due to mild symptoms. She thought she was improving but over the past week she has continued to worsen. Last night she said her O2 sat read 45%. On presentation, her O2 sat was 85%. At bedside now patient is on BiPAP sats in the 90s. She reports a dry cough. Denies N/V, diarrhea, dysuria and hematuria. CT scan consistent with bilateral COVID pneumonia slightly worse than previous imaging. CT scan of the A/P showed cirrhosis with moderate ascites, new since 08/12 imaging. Patient has 2+ blood, 1+ leukocyte esterase, 5- 10WBCs and no bacteria in the urine, waiting on culture. She denies polyuria, dysuria and nocturia. Allergies No Known Drug Allergies Allergy (Verified 04/22/15 10:58) Unknown No Known Allergie Allergy (Uncoded 12/08/16 12:11) Unknown Home medications list reviewed: No Home Medications: Irbesartan/Hydrochlorothiazide [Avalide 300-12.5 mg Tablet] 1 tab PO DAILY 11/24/13 Magnesium Oxide [Mag 0X*] 400 mg PO BID 11/24/13 Gabapentin [Neurontin*] 100 mg PO TID 04/22/15 Verapamil Sr [Calan SR Or Isoptin SR*] 240 mg PO DAILY 04/22/15 Duloxetine HCl [Cymbalta] 60 mg PO DAILY 08/13/20 Insulin Degludec [Tresiba Flextouch U-200] 50 units SQ DAILY WITH BREAKFAST 08/13/20 traMADol HCL [Ultram*] 50 mg PO BIDP PRN 08/13/20 - Past Medical/Surgical History Diabetic: Yes -: HTN -: CHRONIC CONSTIPATION -: CHRONIC PANCREATITIS -: FREQUENT UTI -: DM -: LIVER Cirrhosis -: COVID Pneumonia -: APPENDECTOMY -: TONSILLECTOMY - Family History Mother -: Heart disease, Hypertension Father Notes: AAA - Social History Smoking Status: Never smoker Smoking therapy provided: No Patient receptive to therapy: No Alcohol use: No CD- Drugs: No Caffeine use: Yes Place of Residence: Home Review of Systems General: Malaise, As per HPI Eyes: Unremarkable ENT: Unremarkable Respiratory: Cough, Dry, Shortness of Breath, SOB with Excertion, Pleuritic Pain, As per HPI Cardiovascular: Unremarkable Gastrointestinal: Unremarkable Genitourinary: Unremarkable Musculoskeletal: Unremarkable Integumentary: Unremarkable Neurological: Unremarkable Lymphatics: Unremarkable Physical Examination - Vital Signs Temperature: 98.4 F Blood Pressure: 161/86 Pulse: 110 Respirations: 33 Pulse Ox (%): 96 (on NRB) - Physical Exam General: Alert, In no apparent distress, Oriented x3, Cooperative, Other (difficulty speaking in full sentences) HEENT: Atraumatic, Normocephalic, PERRLA, Mucous membr. moist/pink, EOMI, Sclerae nonicteric Neck: Supple, 2+ carotid pulse no bruit, JVD not distended, No Thyromegaly, No LAD Respiratory: Diminished, Rhonchi/gurgles Cardiovascular: No edema, Normal pulses, Regular rate/rhythm, Normal S1 S2, No gallops, No rubs, No murmurs Capillary refill: <2 Seconds Gastrointestinal: No tenderness, No masses, No rebound, No guarding, Hyperactive, Ascites Musculoskeletal: No clubbing, No swelling, No contractures, No erythema, No tenderness, No warmth Integumentary: No rashes, No breakdown, No significant lesion, No tenderness/swelling, No erythema, No warmth, No cyanosis Neurological: Normal tone, Sensation intact, Cranial nerves 3-12 intact, Normal affect Lymphatics: No axilla or inguinal lymphadenopathy - Studies Laboratory Data (last 24 hrs) 09/08/20 15:14: Troponin I 0.02 09/08/20 10:31: PT 16.0 H, INR 1.39, APTT 25.3 09/08/20 10:31: WBC 7.50, Hgb 10.9 L, Hct 32.1 L, Plt Count 110 L 09/08/20 10:31: Sodium 137, Potassium 3.9, BUN 16, Creatinine 0.66, Glucose 183 H, Total Bilirubin 1.0, AST 32, ALT 41, Alkaline Phosphatase 169 H, Amylase 34, Lipase 131 Imagings Data: CT SCAN ABDOMEN IMPRESSION: Cirrhosis with moderate ascites CT SCAN CHEST IMPRESSION: No pulmonary emboli identified. Extensive interstitial and alveolar opacification consistent with a bilateral COVID-19 pneumonia. Findings are slightly worse than August 12 imaging. Limited upper abdomen imaging shows development of ascites since August 12 examination. Full extent of ascites cannot be assessed on this study. CXR IMPRESSION: Very limited low lung volume examination showing bilateral pneumonia pattern Assessment and Plan - Problems (Diagnosis) (1) Hypertension Current Visit: Yes Status: Chronic Plan: currently stable. will restart home medications once reconciled. Qualifiers: Hypertension type: essential hypertension Qualified Code(s): I10 - Essential (primary) hypertension (2) Urine abnormality Current Visit: Yes Status: Acute Plan: patient has history of recurrent UTIs. currently asymptomatic. UA with 2+ blood, 1+ leukocytes, 5-10 WBCs, no bacteria. waiting on urine culture. continue to monitor. (3) Cirrhosis of liver Current Visit: Yes Status: Chronic Plan: CT scan now with moderate ascites not seen on previous imaging. patient says she is on no medications for her cirrhosis and has not seen GI in a while. mentation stable. GI consult placed for further recommendations. Qualifiers: Ascites presence: with ascites (4) Pneumonia due to COVID-19 virus Current Visit: No Status: Acute Plan: patient currently on BiPAP. started vitamin D, thiamine, zinc and vitamin C. started solumedrol and ivermectin. pulmonology consulted. respiratory consult placed for daily sats and home O2 needs. will continue to monitor. (5) Diabetes Current Visit: No Status: Acute Plan: mild sliding scale insulin protocol initiated. will continue to monitor. Qualifiers: Diabetes mellitus type: type 2 Diabetes mellitus detention insulin use: with continuous churn buttermaker use Diabetes mellitus complication status: without complication Qualified Code(s): E11.9 - Type 2 diabetes mellitus without complications; Z79.4 - FDC (current) use of insulin Discharge Plan: Home Plan to discharge in: 72 Hours - Advance Directives Does patient have a Living Will: Yes Does patient have a Durable POA for Healthcare: Yes - Code Status/Comfort Care Code Status Assessed: Yes Code Status: Full Code Critical Care: No Time Spent Managing Pts Care (In Minutes): 70
[2020-09-08] MEDS ORDERED: D50W 25 GM/50 ML VIAL IV PRN (17:28)
[2020-09-08] MEDS ORDERED: IVERMECTIN 3 MG TABLET PO ONE (18:00)
[2020-09-08] MEDS: ENOXAPARIN 40 MG/0.4 ML SQ SCH (22:12)
[2020-09-08] MEDS: FAMOTIDINE 20 MG TAB PO SCH (22:13)
[2020-09-08] MEDS: MELATONIN 5 MG TABLET PO SCH (22:13)
[2020-09-08] MEDS: INSULIN -REGULAR HUMAN 50 UNIT/0.5 ML ML SQ SCH (22:14)
[2020-09-08] MEDS: THIAMINE 200 MG/2 ML INJ IVP SCH (22:14)
[2020-09-08] MEDS: METHYLPREDNISOLONE 40 MG INJ IV SCH (22:15)
[2020-09-09 03:47] LABS: Absolute Lymphocytes (CBC) 0.8 K/uL (0.7-4.9); Basophils % 0.1 % (0-1.3); Hematocrit 27.1 % (36.0-45.0); Lymphocytes % 22.5 % (15.3-44.8); MPV 9.9 fL (7.6-11.3); RBC Red Blood Cell Count 3.07 M/uL (3.86-4.86)
[2020-09-09 04:04] LABS: BUN Blood Urea Nitrogen 17 mg/dL (7-18); Bicarbonate 25 mmol/L (21-32); Glucose Level 342 mg/dL (74-106); NT PRO-BNP 783 pg/mL (<450); Potassium 4.2 mmol/L (3.5-5.1); Sodium Level 137 mmol/L (136-145)
[2020-09-09 05:04] LABS: Blood Morphology Comment NOT SEEN (NOT SEEN); Platelet Estimate DECR; White Blood Cell Scan OK (OK)
[2020-09-09] MEDS: INSULIN -REGULAR HUMAN 50 UNIT/0.5 ML ML SQ SCH ×4 (07:30→21:48)
[2020-09-09] MEDS ORDERED: INFLUENZA VACCINE (for 3y+) 0.5 ML DOSE IMVAC ONE (08:00)
[2020-09-09] MEDS ORDERED: PNEUMOCOCCAL VACCINE 0.5 ML IMVAC ONE (08:00)
[2020-09-09] MEDS ORDERED: IVERMECTIN 3 MG TABLET PO ONE (09:00)
[2020-09-09] MEDS: ZINC SULFATE 220 MG CAP PO SCH (09:25)
[2020-09-09] MEDS: METHYLPREDNISOLONE 40 MG INJ IV SCH (09:25)
[2020-09-09] MEDS: FAMOTIDINE 20 MG TAB PO SCH ×2 (09:25→21:43)
[2020-09-09] MEDS: ASCORBIC ACID 500 MG TABLET PO SCH ×4 (09:26→21:43)
[2020-09-09] MEDS: VITAMIN D 5,000 UNIT CAP PO SCH (09:26)
[2020-09-09] MEDS: ENOXAPARIN 40 MG/0.4 ML SQ SCH (09:27)
[2020-09-09] MEDS: THIAMINE 200 MG/2 ML INJ IVP SCH ×2 (09:38→21:00)
--- NOTE | 2020-09-09 11:57 | P.CNS ---
Date of Consult: 09/09/20 Reason for Consult: [place] virus pneumonia Primary Care Provider: Dr. Mathis Chief Complaint: bilateral covid pneumonia History of Present Illness: Patient is 74 years of age hypertension diabetes cirrhosis admitted with worsening dyspnea since 06 of August she was treated outpatient with steroids failed therapy became progressively worse is currently on BiPAP doing better still short of breath Allergies No Known Drug Allergies Allergy (Verified 04/22/15 10:58) Unknown No Known Allergie Allergy (Uncoded 12/08/16 12:11) Unknown Home Medications: Irbesartan/Hydrochlorothiazide [Avalide 300-12.5 mg Tablet] 1 tab PO DAILY 11/24/13 Magnesium Oxide [Mag 0X*] 400 mg PO BID 11/24/13 Gabapentin [Neurontin*] 100 mg PO TID 04/22/15 Verapamil Sr [Calan SR Or Isoptin SR*] 240 mg PO DAILY 04/22/15 Duloxetine HCl [Cymbalta] 60 mg PO DAILY 08/13/20 Insulin Degludec [Tresiba Flextouch U-200] 50 units SQ DAILY WITH BREAKFAST 08/13/20 traMADol HCL [Ultram*] 50 mg PO BIDP PRN 08/13/20 - Past Medical/Surgical History Diabetic: Yes -: HTN -: CHRONIC CONSTIPATION -: CHRONIC PANCREATITIS -: FREQUENT UTI -: DM -: LIVER Cirrhosis -: COVID Pneumonia -: APPENDECTOMY -: TONSILLECTOMY - Family History Mother Medical History: Heart disease, Hypertension Father Medical History: Hypertension Notes: AAA - Social History Smoking Status: Never smoker Alcohol use: No CD- Drugs: No Caffeine use: Yes Place of Residence: Home Review of Systems General: Weakness Respiratory: Shortness of Breath Physical Examination Temp Pulse Resp BP Pulse Ox 98.1 F 152 H 33 H 100/75 88 L 09/09/20 08:00 09/09/20 11:22 09/09/20 08:00 09/09/20 11:22 09/09/20 11:22 General: Alert, In no apparent distress Respiratory: Clear to auscultation bilaterally, Diminished Cardiovascular: No edema, Regular rate/rhythm Laboratory Data (last 24 hrs) 09/08/20 15:14: Troponin I 0.02 - Problems (1) Pneumonia due to COVID-19 virus Current Visit: No Status: Acute Plan: Patient is 74 years of age admitted with respiratory failure secondary to [place] virus currently on BiPAP 60% FiO2 labs reviewed saunders received prednisone ivermectin coronary and Flagyl no change extensive changes on the CT scan currently on 60% FiO2 cultures negative
[2020-09-09] MEDS ORDERED: GLUCAGON 1 MG/VIAL IM PRN ×2 (12:45→17:50)
[2020-09-09] MEDS ORDERED: D50W 25 GM/50 ML SYRINGE IV PRN ×2 (12:45→17:50)
--- NOTE | 2020-09-09 12:45 | P.PN ---
Subjective Date of Service: 09/09/20 Primary Care Provider: Dr. Mathis Chief Complaint: bilateral covid pneumonia Patient says she feels worse today. Still coughing. Sating 90% on BiPAP. No other complaints. <Chevy Reardon - Last Filed: 09/09/20 16:31> Date of Service: 09/11/20 <Cynthia Ortiz Madhavi - Last Filed: 09/11/20 07:01> Review of Systems General: Unremarkable Eyes: Unremarkable ENT: Unremarkable Respiratory: Cough, Shortness of Breath, Pleuritic Pain, Wheezing, As per HPI Cardiovascular: Unremarkable Gastrointestinal: Unremarkable Genitourinary: Unremarkable Musculoskeletal: Unremarkable Integumentary: Unremarkable Neurological: Unremarkable Lymphatics: Unremarkable <Cehvy Reardon - Last Filed: 09/09/20 16:31> Physical Examination - Vital Signs Temperature: 98.1 F Blood Pressure: 100/75 Pulse: 152 Respirations: 33 Pulse Ox (%): 88 - Physical Exam General: Alert, In no apparent distress, Oriented x3 HEENT: Atraumatic, Normocephalic, PERRLA, Mucous membr. moist/pink, EOMI, Sclerae nonicteric Neck: Supple, 2+ carotid pulse no bruit, JVD not distended, No Thyromegaly, No LAD Respiratory: Diminished Cardiovascular: No edema, Normal pulses, Regular rate/rhythm, Normal S1 S2, No gallops, No rubs, No murmurs Capillary refill: <2 Seconds Gastrointestinal: Soft and benign, No tenderness, No masses, No rebound, No guarding, Ascites Musculoskeletal: No clubbing, No swelling, No contractures, No erythema, No tenderness, No warmth Integumentary: No rashes, No breakdown, No significant lesion, No tenderness/swelling, No erythema, No warmth, No cyanosis Neurological: Normal tone, Sensation intact, Cranial nerves 3-12 intact, Normal affect - Studies Laboratory Data (last 24 hrs) 09/08/20 15:14: Troponin I 0.02 <Chevy Reardon - Last Filed: 09/09/20 16:31> Assessment And Plan - Current Problems (Diagnosis) (1) Hypertension Current Visit: Yes Status: Chronic Plan: currently stable. will restart home medications once reconciled. Qualifiers: Hypertension type: essential hypertension Qualified Code(s): I10 - Essential (primary) hypertension (2) Urine abnormality Current Visit: Yes Status: Acute Plan: patient has history of recurrent UTIs. currently asymptomatic. continue to monitor. (3) Cirrhosis of liver Current Visit: Yes Status: Chronic Plan: CT scan now with moderate ascites not seen on previous imaging. patient says she is on no medications for her cirrhosis and has not seen GI in a while. mentation stable. GI consult placed for further recommendations. Qualifiers: Hepatic cirrhosis type: unspecified hepatic cirrhosis Ascites presence: w ith ascites Qualified Code(s): K74.60 - Unspecified cirrhosis of liver; R18.8 - Other ascites (4) Pneumonia due to COVID-19 virus Current Visit: No Status: Acute Plan: patient currently on BiPAP. started vitamin D, thiamine, zinc and vitamin C. started solumedrol and ivermectin. pulmonology on board.. respiratory consult placed for daily sats and home O2 needs. will continue to monitor. (5) Diabetes Current Visit: No Status: Acute Plan: moderate sliding scale insulin protocol initiated. will continue to monitor. 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 Continue with IV antiviral 2. Continue nebs or inhaler therapy as needed 3. Repeat chest x-ray if symptoms are progressively worsening 4. O2 per protocol 5. Pulmonary consultation 6. Continue with IV steroids 7. Monitor LFTs 8. Repeat labs including D-dimer, ferritin, and CRP and LFTs 9. GI and DVT prophylaxis <Cynthia Ortiz - Last Filed: 09/11/20 07:01>
[2020-09-09] MEDS ORDERED: DIGOXIN 0.25 MG/ML AMP IV ONE (13:04)
[2020-09-09] MEDS: METHYLPREDNISOLONE 125 MG INJ IV SCH ×2 (13:58→21:47)
--- NOTE | 2020-09-09 14:13 | EKG ---
Test Date: 2020-09-08 Test Time: 10:40:31 Cloth Coverer: NELY MEASUREMENT RESULTS: Intervals: Rate: 106 [place]: 158 QRSD: 80 QT: 348 QTc: 462 [place]: P: 37 IA: 158 QRS: -23 T: 25 INTERPRETIVE STATEMENTS: Sinus tachycardia Otherwise normal ECG Compared to ECG 08/12/2020 14:41:17 Sinus rhythm no longer present Electronically Signed On 09-09-20 14:09:20 CURBSTONE SETTER by Abhijit Garza
[2020-09-09] MEDS ORDERED: ALBUMIN HUMAN 25% 100 ML IV ONE (17:35)
[2020-09-09] MEDS ORDERED: PANTOPRAZOLE 40 MG INJ IVP ONE (17:36)
[2020-09-09] MEDS ORDERED: SODIUM CHLORIDE 0.9% 10ML INJ IV PRN (17:36)
[2020-09-09 18:15] LABS: C-Reactive Protein 87.7 mg/L (<3.00)
[2020-09-09] MEDS ORDERED: INSULIN 70/30 100 UNITS/ML SQ ONE (19:00)
[2020-09-09] MEDS ORDERED: Remdesivir 200 MG in NA CHLORIDE 0.9% 250 ML IV ONE (19:00)
[2020-09-09] MEDS ORDERED: D50W 25 GM/50 ML VIAL IV PRN (19:00)
[2020-09-09] MEDS: INSULIN GLARGINE 100 UNITS/ML SQ SCH (21:36)
[2020-09-09] MEDS: MELATONIN 5 MG TABLET PO SCH (21:43)
[2020-09-09] MEDS: DIGOXIN 0.25 MG/ML AMP IV SCH (21:49)
[2020-09-10] MEDS: DIGOXIN 0.25 MG/ML AMP IV SCH (03:13)
[2020-09-10 04:11] LABS: Absolute Lymphocytes (CBC) 1.2 K/uL (0.7-4.9); Basophils % 0.2 % (0-1.3); Hematocrit 34.3 % (36.0-45.0); Lymphocytes % 10.5 % (15.3-44.8); MPV 9.6 fL (7.6-11.3); RBC Red Blood Cell Count 3.86 M/uL (3.86-4.86)
[2020-09-10] MEDS ORDERED: LORazepam 2 MG/ML VIAL IV ONE (04:28)
[2020-09-10 04:32] LABS: ALT/SGPT 34 U/L (12-78); AST/SGOT 36 U/L (15-37); Albumin 2.6 g/dL (3.4-5.0); Alkaline Phosphatase 194 U/L (45-117); BUN Blood Urea Nitrogen 18 mg/dL (7-18); Bicarbonate 26 mmol/L (21-32); Bilirubin Direct 0.2 mg/dL (0-0.2); Bilirubin Total 0.7 mg/dL (0.2-1.0); Glucose Level 243 mg/dL (74-106); Potassium 4.2 mmol/L (3.5-5.1); Protein, Total 6.9 g/dL (6.4-8.2); Sodium Level 140 mmol/L (136-145)
[2020-09-10] MEDS ORDERED: FUROSEMIDE 40 MG/4 ML VIAL IV ONE (04:37)
[2020-09-10 04:49] LABS: Anisocytosis 1+; Blood Morphology Comment NOTED (NOT SEEN); Platelet Estimate ADEQ
--- NOTE | 2020-09-10 04:50 | P.PN ---
Date of Service: 09/10/20 pt seen , noted with resp distress and marked tachycardia in the 120s , s/p on digoxin but old EKG with sinus tachy -marked anxiety elicited , will dose ativan now - c/w bipap and cont pulse ox - will dose lasix 80 mg IV x1 -obtain repeat CXR to r/o pneumohtorax - may do small dose of metoprolol if still tachy after ativan as BP elevated -will follow
[2020-09-10] MEDS ORDERED: FUROSEMIDE 40 MG/4 ML VIAL ONE (04:59)
[2020-09-10 06:39] LABS: Arterial Blood Carboxyhemoglob 1.7 % (0-1.5); Blood Gas Oxyhemoglobin 79.5 % (94-97); Blood O2 Saturation 81.6 % (92-98.5)
[2020-09-10] MEDS: METHYLPREDNISOLONE 125 MG INJ IV SCH ×3 (07:58→21:45)
[2020-09-10] MEDS: MORPHINE 2 MG/ML SYR IV PRN (07:59)
[2020-09-10] MEDS ORDERED: PANTOPRAZOLE 40 MG INJ IVP SCH (09:00)
--- NOTE | 2020-09-10 10:28 | P.PN ---
Subjective Date of Service: 09/10/20 Primary Care Provider: Dr. Mathis Chief Complaint: bilateral covid pneumonia Physical Examination - Vital Signs Temperature: 98.0 F Blood Pressure: 157/75 Pulse: 113 Respirations: 33 Pulse Ox (%): 87 Assessment & Plan - Problems (Diagnosis) (1) Pneumonia due to COVID-19 virus Current Visit: No Status: Acute Plan: Patient is 74 years of age admitted with respiratory failure secondary to zarate virus currently on BiPAP 60% FiO2 labs reviewed saunders received prednisone ivermectin coronary and Flagyl no change extensive changes on the CT scan currently on 60% FiO2 cultures negative
--- NOTE | 2020-09-10 11:02 | RAD REPORT ---
EXAM DESCRIPTION: RAD - Chest Single View - 09/10/2020 4:59 am CLINICAL HISTORY: Labored breathing with increase HR >120 Chest pain. COMPARISON: Chest Single View dated 09/08/2020; Chest Single View dated 08/12/2020; Chest Pa And Lat ( 2 Views) dated 09/20/2016; CHEST PA AND LAT 2 VIEW dated 04/22/2015 FINDINGS: Portable technique limits examination quality. There has been moderate worsening in bilateral pulmonary opacities noted since the comparative study. The heart is normal in size. No displaced fractures.Aortic atherosclerosis. IMPRESSION: Moderate worsening in bilateral pulmonary opacities since comparative study.
[2020-09-10] MEDS: INSULIN -REGULAR HUMAN 50 UNIT/0.5 ML ML SQ SCH ×4 (11:30→21:47)
[2020-09-10] MEDS: ASCORBIC ACID 500 MG TABLET PO SCH ×4 (13:00→21:00)
[2020-09-10] MEDS: Remdesivir 100 MG in NA CHLORIDE 0.9% 250 ML IV SCH (13:46)
--- NOTE | 2020-09-10 16:48 | RAD REPORT ---
EXAM DESCRIPTION: RAD - Abdomen 1 View (KUB) - 09/10/2020 4:42 pm CLINICAL HISTORY: Dobhoff placement Pain COMPARISON: No comparisons FINDINGS: Tip of the top off tube is in the duodenal C-loop.
[2020-09-10] MEDS: VITAMIN D 5,000 UNIT CAP PO SCH (17:37)
[2020-09-10] MEDS: THIAMINE 200 MG/2 ML INJ IVP SCH ×2 (17:37→21:46)
[2020-09-10] MEDS: FAMOTIDINE 20 MG TAB PO SCH ×2 (17:37→21:46)
[2020-09-10] MEDS: RIVAROXABAN 20 MG TABLET PO SCH (17:37)
[2020-09-10] MEDS: ZINC SULFATE 220 MG CAP PO SCH (17:38)
[2020-09-10] MEDS: DULOXETINE 30 MG CAP PO SCH (17:38)
[2020-09-10] MEDS: MELATONIN 5 MG TABLET PO SCH (21:46)
[2020-09-10] MEDS: ACETAMINOPHEN 500 MG TAB PO PRN (21:48)
[2020-09-10] MEDS: INSULIN GLARGINE 100 UNITS/ML SQ SCH (22:00)
[2020-09-11] MEDS ORDERED: AMIODARONE HCL 150 MG/3 ML INJ IV ONE (05:15)
[2020-09-11] MEDS: INSULIN -REGULAR HUMAN 50 UNIT/0.5 ML ML SQ SCH ×4 (06:00→23:45)
[2020-09-11 06:08] LABS: Phosphorus 3.4 mg/dL (2.5-4.9)
[2020-09-11 06:09] LABS: C-Reactive Protein 57.6 mg/L (<3.00); Ferritin 123.8 ng/mL (8-388)
[2020-09-11 06:10] LABS: ALT/SGPT 28 U/L (12-78); Albumin 2.2 g/dL (3.4-5.0); Alkaline Phosphatase 166 U/L (45-117); BUN Blood Urea Nitrogen 26 mg/dL (7-18); Bicarbonate 30 mmol/L (21-32); Bilirubin Direct 0.2 mg/dL (0-0.2); Bilirubin Total 0.6 mg/dL (0.2-1.0); Glucose Level 155 mg/dL (74-106); Protein, Total 5.9 g/dL (6.4-8.2); Sodium Level 145 mmol/L (136-145)
[2020-09-11 06:16] LABS: AST/SGOT 32 U/L (15-37); Magnesium 1.8 mg/dL (1.8-2.4); Potassium 4.1 mmol/L (3.5-5.1)
[2020-09-11 06:20] LABS: Absolute Lymphocytes (CBC) 0.8 K/uL (0.7-4.9); Basophils % 0.7 % (0-1.3); Hematocrit 28.7 % (36.0-45.0); Lymphocytes % 11.8 % (15.3-44.8); RBC Red Blood Cell Count 3.26 M/uL (3.86-4.86)
[2020-09-11] MEDS: ACETAMINOPHEN 500 MG TAB PO PRN (06:28)
[2020-09-11] MEDS: MORPHINE 2 MG/ML SYR IV PRN (06:31)
--- NOTE | 2020-09-11 06:57 | CON ---
History Of Present Illness: She was admitted with COVID pneumonia. The patient was seen for atrial fibrillation. Ms. Velasquez is 74, has a history of diabetes, hypertension, as well as atrial fibrillatio n. She takes Avalide and Xarelto at home. Came in with COVID pneumonia. CT of her abdomen shows po ssible cirrhosis. Chest x-ray showed pneumonia. EKG showed atrial fibrillation. This has resolved now after digoxin. She is on Lovenox, Lasix and insulin as well. No symptoms with her atrial fibril lation. She was hypertensive at 189/96. She had a breathing rate of 37. Her O2 saturation was 80% on CPAP and BiPAP with a PO2 44, pCO2 of 39, pH of 7.43 and the patient was transferred to the ICU fo r further care requiring intubation. She had a D-dimer of 2,020. Her BNP was 783. CRP was 87. Her procalcitonin was 0.37. Past Medical History: As stated above. Allergies: NONE. Medications: At home are stated earlier. Review of Systems: Unobtainable. Social History: Unobtainable. Family History: Unobtainable. Physical Examination: General: By the time I saw her, she was intubated, adequate O2 saturation now sinus rhythm to sinus tach with PACs. HEENT: Negative. Neck: Supple. No bruit. Chest: Reveals rales throughout. Cardiac: Revealed tachycardia. No murmurs, gallops, or rubs. Abdomen: Benign. Extremities: Revealed no clubbing, cyanosis, or edema. Diagnostic Data: As stated earlier. Impression And Plan: 1.Paroxysmal atrial fibrillation, now on Lovenox. She normally takes Xarelto at home. She needs to be on a beta mary ann when she wakes up otherwise. Meanwhile, we can give her IV beta blockers on an as-needed basis. If her atrial fibrillation becomes uncontrollable, we will start IV amiodarone. E chocardiogram is pending. 2.Cirrhosis. 3.COVID pneumonia with severe hypoxia, requiring intubation. 4.Diabetes. 5.Hypertension. I agree with her present regimen right now. From a cardiac standpoint, again, I wi ll do a digoxin as needed x1. I will do IV beta blockers 5 mg every 5 minutes x3 dosages p.r.n. hear t rate more than 120. If she is in atrial fibrillation, we will consider IV amiodarone; if atrial fi brillation becomes rapid and constant, we will see what her echocardiogram shows. ELIZABETH/CIELO Voice ID: [id number] Report ID: [id number]
--- NOTE | 2020-09-11 07:10 | P.PN ---
Subjective Date of Service: 09/10/20 Patient w/ continued worsening of her symptoms. We went ahead and transferred to ICU. Spoke to both of the daughter's hand patient's niece, Cheyenne who helps with their medical decision-making. At this time, they want us to continue with aggressive intervention. Patient does not have a do not resuscitate on file and patient herself wants everything done. We have started Remdesivir monitoring liver function testing. We have tried to get high titer plasma from the blood bank. However, they do not have the high titer plasma in her blood type at this time. They also wanted for family members to donate but this is normally done on Mondays through Fridays and the patient has to prove that they had a positive coated test and now they have had 2-coated test. This is done in conjunction with the donors physician. This normally takes about 72 hr to get completed. Blood bank things that they will be able to get high titer plasma within that time period. At this time, patient does have diffuse inflammation on CT scan. Prognosis is poor. Continue with aggressive interventions as tolerated Review of Systems 10-point ROS is otherwise unremarkable Physical Examination - Vital Signs Temperature: 97.3 F Blood Pressure: 161/97 Pulse: 117 Respirations: 45 Pulse Ox (%): 86 - Physical Exam General: Alert, In no apparent distress, Oriented x3, Moderate distress HEENT: Atraumatic, PERRLA, EOMI Neck: Supple, JVD not distended Respiratory: Diminished, Rhonchi/gurgles Cardiovascular: Regular rate/rhythm, Normal S1 S2, Systolic murmur Gastrointestinal: Normal bowel sounds, Soft and benign, Non-distended, No tenderness Musculoskeletal: No clubbing, No swelling, No tenderness Integumentary: No rashes Neurological: Normal affect - Studies Medications List Reviewed: Yes Assessment & Plan - Problems (Diagnosis) (1) Acute respiratory failure due to COVID-19 Current Visit: Yes Status: Acute (2) History of chronic pancreatitis Current Visit: Yes Status: Acute (3) Cirrhosis of liver Current Visit: Yes Status: Chronic Qualifiers: Hepatic cirrhosis type: unspecified hepatic cirrhosis Ascites presence: with ascites Qualified Code(s): K74.60 - Unspecified cirrhosis of liver; R18.8 - Other ascites (4) Hypertension Current Visit: Yes Status: Chronic Qualifiers: Hypertension type: essential hypertension Qualified Code(s): I10 - Essential (primary) hypertension (5) Diabetes Current Visit: No Status: Acute Qualifiers: Diabetes mellitus type: type 2 Diabetes 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 Continue with IV antiviral 2. Continue nebs or inhaler therapy as needed 3. Repeat chest x-ray if symptoms are progressively worsening 4. O2 per protocol 5. Pulmonary consultation 6. Continue with IV steroids; awaiting blood bank to release plasma 7. Monitor LFTs 8. Monitor inflammatory markers 9. GI and DVT prophylaxis Discharge Plan: Home Plan to discharge in: Greater than 2 days - Advance Directives Does patient have a Living Will: Yes Does patient have a Durable POA for Healthcare: Yes - Code Status/Comfort Care Code Status: Full Code Critical Care: Yes Time Spent Managing PTS Care (In Minutes): 45
--- NOTE | 2020-09-11 07:20 | P.PN ---
Date of Service: 09/11/20 Subjective Patient remains tachypneic. Oxygenation has been fairly stable. Still requiring high support from BiPAP. Continue with current plan of care. Spoke to blood bank and they still do not have high titer plasma available. Review of Systems 10-point ROS is otherwise unremarkable Physical Examination - Vital Signs Reviewed - Physical Exam General: Alert, In no apparent distress, Oriented x3, Moderate distress Respiratory: Diminished, Rhonchi/gurgles Cardiovascular: Regular rate/rhythm, Normal S1 S2, Systolic murmur Gastrointestinal: Normal bowel sounds, Soft and benign, Non-distended, No tenderness Musculoskeletal: No clubbing, No swelling, No tenderness Assessment & Plan - Problems (Diagnosis) (1) Acute respiratory failure due to COVID-19 Current Visit: Yes Status: Acute (2) History of chronic pancreatitis Current Visit: Yes Status: Acute (3) Cirrhosis of liver Current Visit: Yes Status: Chronic Qualifiers: Hepatic cirrhosis type: unspecified hepatic cirrhosis Ascites presence: with ascites Qualified Code(s): K74.60 - Unspecified cirrhosis of liver; R18.8 - Other ascites (4) Hypertension Current Visit: Yes Status: Chronic Qualifiers: Hypertension type: essential hypertension Qualified Code(s): I10 - Ess ential (primary) hypertension (5) Diabetes Current Visit: No Status: Acute Qualifiers: Diabetes mellitus type: type 2 Diabetes mellitus correction insulin use: with correction use Diabetes mellitus complication status: without complication Qualified Code(s): E11.9 - Type 2 diabetes mellitus without complications; Z79.4 - intermediate manager (current) use of insulin (6) Pneumonia due to COVID-19 virus Current Visit: No Status: Acute - Plan Continue with plan of care as mentioned below 1. Continue with IV antiviral 2. Continue nebs or inhaler therapy as needed 3. Repeat chest x-ray if symptoms are progressively worsening 4. O2 per protocol; continue with BiPAP support 5. Pulmonary consultation appreciated 6. Continue with IV steroids; awaiting blood bank to release plasma 7. Monitor LFTs 8. Monitor inflammatory markers 9. GI and DVT prophylaxis Discharge Plan: Home Plan to discharge in: Greater than 2 days - Advance Directives Does patient have a Living Will: Yes Does patient have a Durable POA for Healthcare: Yes - Code Status/Comfort Care Code Status: Full Code Critical Care: Yes Time Spent Managing PTS Care (In Minutes): 40
--- NOTE | 2020-09-11 07:31 | EKG ---
Test Date: 2020-09-10 Test Time: 04:56:41 Health Assessment And Treatment Teacher: BECCA MEASUREMENT RESULTS: Intervals: Rate: 125 [place]: QRSD: 68 QT: 244 QTc: 352 [place]: P: [place]: QRS: -22 T: 207 INTERPRETIVE STATEMENTS: Atrial fibrillation with rapid ventricular response with premature ventricular or aberrantly conducted complexes Septal infarct, age undetermined Possible Lateral infarct, age undetermined ST & T wave abnormality, consider inferior ischemia or digitalis effect Abnormal ECG Compared to ECG 09/08/2020 10:40:31 Ventricular premature complex(es) now present Myocardial infarct finding now present ST (T wave) deviation now present Possible ischemia now present Sinus tachycardia no longer present Electronically Signed On 09-11-20 07:30:26 PROJECT ADMINISTRATOR by Abhijit Garza
[2020-09-11] MEDS ORDERED: ALBUMIN HUMAN 25% 100 ML IV ONE (07:52)
[2020-09-11] MEDS ORDERED: FUROSEMIDE 40 MG/4 ML VIAL IV ONE (07:53)
[2020-09-11] MEDS ORDERED: LORazepam 2 MG/ML VIAL IV PRN (08:14)
[2020-09-11] MEDS ORDERED: METOPROLOL TARTRATE 5 MG/5 ML INJ IV STA ×2 (08:17→08:38)
[2020-09-11] MEDS ORDERED: METOPROLOL TARTRATE 5 MG/5 ML INJ IV ONE (08:38)
[2020-09-11] MEDS ORDERED: PANTOPRAZOLE 40 MG INJ IVP SCH (09:00)
[2020-09-11] MEDS ORDERED: SUCCINYLCHOLINE 20 MG/ML (10 ML) IV ONE (09:27)
[2020-09-11] MEDS ORDERED: propofoL 1,000 MG/100 ML VIAL IV ONE (09:27)
[2020-09-11] MEDS: METHYLPREDNISOLONE 125 MG INJ IV SCH ×3 (09:31→21:15)
[2020-09-11] MEDS ORDERED: HALOPERIDOL LACT 5 MG/ML INJ IV PRN (09:36)
[2020-09-11] MEDS ORDERED: NA CHLORIDE 0.9% 250 ML IV PRN (09:36)
[2020-09-11] MEDS ORDERED: CISATRACURIUM INJECTION 2 MG/ML (10 ML Vial) IV ONE ×2 (09:54→10:16)
[2020-09-11] MEDS: LORazepam 2 MG/ML VIAL IV PRN (10:00)
--- NOTE | 2020-09-11 10:13 | RAD REPORT ---
EXAM DESCRIPTION: Marti Single View09/11/2020 10:05 am CLINICAL HISTORY: Device placement endotracheal tube placement IMPRESSION: An endotracheal tube has been inserted with its 6.5 centimeters above the shama.
[2020-09-11] MEDS: ASCORBIC ACID 500 MG TABLET PO SCH ×4 (10:14→21:14)
[2020-09-11] MEDS: DULOXETINE 30 MG CAP PO SCH (10:14)
[2020-09-11] MEDS: RIVAROXABAN 20 MG TABLET PO SCH (10:14)
[2020-09-11] MEDS: ZINC SULFATE 220 MG CAP PO SCH (10:14)
[2020-09-11] MEDS: VITAMIN D 5,000 UNIT CAP PO SCH (10:14)
[2020-09-11] MEDS: FAMOTIDINE 20 MG TAB PO SCH (10:14)
[2020-09-11] MEDS: THIAMINE 200 MG/2 ML INJ IVP SCH ×2 (10:14→21:14)
[2020-09-11] MEDS: HYDROMORPHONE HCL 2 MG/ML inj IV PRN ×3 (10:20→21:14)
--- NOTE | 2020-09-11 10:45 | P.PN ---
Subjective Date of Service: 09/11/20 Primary Care Provider: Dr. Mathis Chief Complaint: bilateral covid pneumonia Subjective: Worsening (patients's condiion worsened today/ developed AFib had to be intubated) Review of Systems is unable to be obtained Physical Examination - Vital Signs Temperature: 97.8 F Blood Pressure: 141/81 Pulse: 127 Respirations: 27 Pulse Ox (%): 74 - Physical Exam General: Severe distress Respiratory: Crackles/rales Cardiovascular: No edema, Irregular heart rate/rhythm - Studies Medications List Reviewed: Yes Assessment & Plan - Problems (Diagnosis) (1) Acute respiratory failure due to severe acute respiratory syndrome coronavirus 2 (SARS-CoV-2) infection Current Visit: Yes Status: Acute Plan: patient is 74 years of age admitted with zarate virus pneumonia became worse was transferred to the ICU later had to be intubated today due to transient episode of AFib chest x-ray shows worsening infiltrate currently on a ventilator very agitated will use sedation increase peep antibiotics labs reviewed ventilatory settings reviewed patient is on pressure control ventilation anti coagulated with Lovenox possible E starting tube feeds tomorrow
[2020-09-11] MEDS ORDERED: DIGOXIN 0.25 MG/ML AMP IV ONE (11:00)
[2020-09-11] MEDS: Remdesivir 100 MG in NA CHLORIDE 0.9% 250 ML IV SCH (11:08)
[2020-09-11] MEDS ORDERED: DIGOXIN 0.25 MG/ML AMP ONE (11:08)
[2020-09-11] MEDS: Levofloxacin500mg IV 500 MG/100 ML BAG IV SCH (11:46)
[2020-09-11] MEDS ORDERED: NOREPINEPHRINE 4 MG in D5W 250 ML IV PRN (13:08)
[2020-09-11] MEDS: ENOXAPARIN 100 MG/ML SYR SQ SCH ×2 (13:50→21:16)
[2020-09-11] MEDS: INSULIN GLARGINE 100 UNITS/ML SQ SCH (21:00)
[2020-09-11] MEDS: FAMOTIDINE 20 MG/2 ML VIAL IV SCH (21:15)
[2020-09-12] MEDS: HYDROMORPHONE HCL 2 MG/ML inj IV PRN ×5 (03:38→23:00)
[2020-09-12 05:00] LABS: Absolute Lymphocytes (CBC) 0.8 K/uL (0.7-4.9); Basophils % 0.3 % (0-1.3); Hematocrit 29.4 % (36.0-45.0); Lymphocytes % 9.8 % (15.3-44.8); MPV 9.3 fL (7.6-11.3); RBC Red Blood Cell Count 3.34 M/uL (3.86-4.86)
[2020-09-12 05:25] LABS: Albumin 2.6 g/dL (3.4-5.0); Bilirubin Direct 0.3 mg/dL (0-0.2); Bilirubin Total 0.7 mg/dL (0.2-1.0); C-Reactive Protein 96.7 mg/L (<3.00); Ferritin 245.3 ng/mL (8-388); Phosphorus 5.3 mg/dL (2.5-4.9); Potassium 4.5 mmol/L (3.5-5.1)
[2020-09-12 05:47] LABS: Arterial Blood Carboxyhemoglob 1.5 % (0-1.5); Blood Gas Oxyhemoglobin 95.2 % (94-97); Blood O2 Saturation 97.6 % (92-98.5)
[2020-09-12] MEDS: INSULIN -REGULAR HUMAN 50 UNIT/0.5 ML ML SQ SCH ×3 (06:30→18:00)
[2020-09-12] MEDS: ZINC SULFATE 220 MG CAP PO SCH (08:33)
[2020-09-12] MEDS: VITAMIN D 5,000 UNIT CAP PO SCH (08:33)
[2020-09-12] MEDS: ASCORBIC ACID 500 MG TABLET PO SCH ×4 (08:33→20:27)
[2020-09-12] MEDS: ENOXAPARIN 100 MG/ML SYR SQ SCH ×2 (08:33→20:24)
[2020-09-12] MEDS: THIAMINE 200 MG/2 ML INJ IVP SCH ×2 (08:34→20:27)
[2020-09-12] MEDS: FAMOTIDINE 20 MG/2 ML VIAL IV SCH ×2 (08:34→20:25)
[2020-09-12] MEDS: METHYLPREDNISOLONE 125 MG INJ IV SCH ×3 (08:34→20:27)
[2020-09-12] MEDS: Remdesivir 100 MG in NA CHLORIDE 0.9% 250 ML IV SCH (08:50)
--- NOTE | 2020-09-12 10:02 | RAD REPORT ---
EXAM DESCRIPTION: RAD - Chest Single View - 09/12/2020 5:35 am CLINICAL HISTORY: Respiratory Failure, COVID pneumonia COMPARISON: September 11, 2020 TECHNIQUE: AP portable chest image was obtained 09/12/2020 5:35 am . FINDINGS: The endotracheal tube is at the T2 level 2 cm above the aortic arch. Position is stable. F eeding tube extends below the diaphragm. Bilateral airspace opacification is present much improved fr om the comparison. Heart size is large but stable. Central vasculature is prominent but not substanti ally different. No pneumothorax or enlarging pleural effusion. No acute bony abnormality seen. No acu te aortic findings suspected. IMPRESSION: 1. Significant improvement in the airspace opacification since September 11, 2020. 2. Endotracheal tube tip is the T2 level approximately 2 cm above the aortic arch.
[2020-09-12] MEDS: Levofloxacin500mg IV 500 MG/100 ML BAG IV SCH (10:34)
[2020-09-12] MEDS: LORazepam 2 MG/ML VIAL IV PRN ×2 (11:13→20:28)
--- NOTE | 2020-09-12 12:25 | P.PN ---
Subjective Date of Service: 09/12/20 Primary Care Provider: Dr. Mathis Chief Complaint: bilateral covid pneumonia Subjective: Improving (Patient's oxygenation is improving) Review of Systems is unable to be obtained Physical Examination - Vital Signs Temperature: 97.6 F Blood Pressure: 156/49 Pulse: 103 Respirations: 30 Pulse Ox (%): 97 - Physical Exam General: Unresponsive Respiratory: Clear to auscultation bilaterally, Diminished - Studies Microbiology Data (last 24 hrs): 09/08/20 14:35 Clean Catch Urine [place] Count - Final BETWEEN 10,000 & 100,000 CFU/ML 09/08/20 14:35 Clean Catch Urine - Final Enterococcus [place] Medications List Reviewed: Yes Assessment & Plan - Problems (Diagnosis) (1) Acute respiratory failure due to severe acute respiratory syndrome coronavirus 2 (SARS-CoV-2) infection Current Visit: Yes Status: Acute Plan: Respiratory failure oxygenation is improving continue to titrate oxygen levels down chest x-ray reviewed labs reviewed continue with the high-dose steroid currently on assist-control peep of 13
--- NOTE | 2020-09-12 13:55 | P.PN ---
Subjective Date of Service: 09/12/20 Primary Care Provider: Dr. Mathis Chief Complaint: bilateral covid pneumonia Subjective: Other (Patient remains intubated.) Physical Examination - Vital Signs Temperature: 97.6 F Blood Pressure: 156/49 Pulse: 103 Respirations: 30 Pulse Ox (%): 97 - Studies Microbiology Data (last 24 hrs): 09/08/20 14:35 Clean Catch Urine [place] Count - Final BETWEEN 10,000 & 100,000 CFU/ML 09/08/20 14:35 Clean Catch Urine - Final Enterococcus [place] Medications List Reviewed: Yes Assessment & Plan Discharge Plan: Other (Home verses skilled placement verses LTAC) Plan to discharge in: Greater than 2 days Physician Review Additional Text: Physical exam: Patient remains intubated. Heart: Regular rate Lungs: Patient on ventilator Abdomen: Soft Extremities: No focal deficits Impression: Dyspnea secondary to acute respiratory failure now with acute respiratory syndrome related to bilateral COVID 19 pneumonia Diabetes mellitus type 2 with hyperglycemia Hypertension Anemia of chronic disease Atrial fibrillation UTI, urine culture positive for Enterococcus Acute renal insufficiency Plan: Dyspnea secondary to acute respiratory failure now with acute respiratory syndrome related to bilateral COVID 19 pneumonia: Patient remains intubated. Will discuss with pulmonology about plan of care. Continue with high-dose steroids, Remdesivir and supplementation. Continue with Lovenox full dose. Will discuss with family. Diabetes mellitus type 2 with hyperglycemia: Continue Accu-Cheks and sliding scale. Hypertension: Continue with current medication Anemia of chronic disease: Will monitor closely. Atrial fibrillation: Patient received metoprolol and digoxin. Continue Lovenox at full dose. UTI, urine culture positive for Enterococcus: Continue with antibiotic therapy. Acute renal insufficiency: Continue to monitor closely. Time Spent Managing Pts Care (In Minutes): 55
--- NOTE | 2020-09-12 17:11 | EKG ---
Test Date: 2020-09-11 Test Time: 08:30:15 Catering Convention Services Manager: TEREZA MEASUREMENT RESULTS: Intervals: Rate: 152 CT: QRSD: 78 QT: 298 QTc: 473 [place]: P: CT: QRS: -13 T: 187 INTERPRETIVE STATEMENTS: Atrial fibrillation with rapid ventricular response with premature ventricular or aberrantly conducted complexes Minimal voltage criteria for LVH, may be normal variant Marked ST abnormality, possible lateral subendocardial injury Abnormal ECG Compared to ECG 09/10/2020 04:58:31 Left ventricular hypertrophy now present ST (T wave) deviation now present Sinus tachycardia no longer present Atrial premature complex(es) no longer present Myocardial infarct finding no longer present Electronically Signed On 09-12-20 17:06:33 RETAIL COMMISSION SALES ASSOCIATE by Abhijit Garza
--- NOTE | 2020-09-12 17:14 | EKG ---
Test Date: 2020-09-10 Test Time: 04:58:31 Tentering Machine Feeder: BECCA MEASUREMENT RESULTS: Intervals: Rate: 125 [place]: 168 QRSD: 74 QT: 298 QTc: 430 [place]: P: 81 [place]: 168 QRS: -25 T: 6 INTERPRETIVE STATEMENTS: Sinus tachycardia with premature supraventricular complexes with occasional premature ventricular complexes Cannot rule out Inferior infarct, age undetermined Anterolateral infarct, age undetermined Abnormal ECG Compared to ECG 09/10/2020 04:56:41 Atrial premature complex(es) now present Atrial fibrillation no longer present ST (T wave) deviation no longer present Possible ischemia no longer present Myocardial infarct finding still present Electronically Signed On 09-12-20 17:06:51 JEWISH THOUGHT PROFESSOR by Abhijit Garza
[2020-09-12] MEDS: INSULIN GLARGINE 100 UNITS/ML SQ SCH (20:23)
[2020-09-13] MEDS: INSULIN -REGULAR HUMAN 50 UNIT/0.5 ML ML SQ SCH ×5 (00:59→17:30)
[2020-09-13] MEDS: HYDROMORPHONE HCL 2 MG/ML inj IV PRN ×6 (00:59→21:24)
[2020-09-13] MEDS: LORazepam 2 MG/ML VIAL IV PRN ×3 (05:00→13:54)
[2020-09-13 05:11] LABS: Absolute Lymphocytes (CBC) 0.7 K/uL (0.7-4.9); Basophils % 0.6 % (0-1.3); Hematocrit 29.2 % (36.0-45.0); Lymphocytes % 15.9 % (15.3-44.8); MPV 9.9 fL (7.6-11.3); RBC Red Blood Cell Count 3.27 M/uL (3.86-4.86)
[2020-09-13 05:29] LABS: Albumin 2.2 g/dL (3.4-5.0); Bilirubin Total 0.5 mg/dL (0.2-1.0); Ferritin 166.4 ng/mL (8-388); Magnesium 2.1 mg/dL (1.8-2.4); Potassium 4.4 mmol/L (3.5-5.1); Protein, Total 5.4 g/dL (6.4-8.2)
[2020-09-13 05:49] LABS: Blood Morphology Comment NOT SEEN (NOT SEEN); Platelet Estimate DECR
--- NOTE | 2020-09-13 07:59 | RAD REPORT ---
EXAM DESCRIPTION: Marti Single View09/13/2020 6:23 am CLINICAL HISTORY: Shortness breath COMPARISON: September 12 FINDINGS: Mild improvement in the bilateral pulmonary opacities. Endotracheal and feeding tubes unchanged Heart is mildly enlarged
[2020-09-13] MEDS: METHYLPREDNISOLONE 125 MG INJ IV SCH ×3 (08:31→21:25)
[2020-09-13] MEDS: ENOXAPARIN 100 MG/ML SYR SQ SCH ×2 (08:32→21:23)
[2020-09-13] MEDS: ZINC SULFATE 220 MG CAP PO SCH (08:33)
[2020-09-13] MEDS: FAMOTIDINE 20 MG/2 ML VIAL IV SCH ×2 (08:33→21:25)
[2020-09-13] MEDS: ASCORBIC ACID 500 MG TABLET PO SCH ×4 (08:33→21:24)
[2020-09-13] MEDS: VITAMIN D 5,000 UNIT CAP PO SCH (08:33)
[2020-09-13] MEDS: THIAMINE 200 MG/2 ML INJ IVP SCH ×2 (08:33→21:24)
[2020-09-13] MEDS: Remdesivir 100 MG in NA CHLORIDE 0.9% 250 ML IV SCH (09:19)
[2020-09-13] MEDS: Levofloxacin500mg IV 500 MG/100 ML BAG IV SCH (11:10)
--- NOTE | 2020-09-13 12:53 | P.PN ---
Subjective Date of Service: 09/13/20 Primary Care Provider: Dr. Mathis Chief Complaint: bilateral covid pneumonia Subjective: Improving (Patient is doing better oxygenation improving tolerating tube feeds) Review of Systems is unable to be obtained Physical Examination - Vital Signs Temperature: 97 F Blood Pressure: 139/63 Pulse: 86 Respirations: 22 Pulse Ox (%): 97 - Physical Exam General: Unresponsive Respiratory: Clear to auscultation bilaterally, Crackles/rales Cardiovascular: Normal S1 S2 - Studies Microbiology Data (last 24 hrs): 09/08/20 10:48 Blood - Blood Aerobic Blood Culture - Final No growth in 5 days. 09/08/20 10:48 Blood - Blood Anaerobic Blood Culture - Final No growth in 5 days. 09/08/20 10:50 Blood - Blood Aerobic Blood Culture - Final No growth in 5 days. 09/08/20 10:50 Blood - Blood Anaerobic Blood Culture - Final No growth in 5 days. Medications List Reviewed: Yes Assessment & Plan - Problems (Diagnosis) (1) Acute respiratory failure due to severe acute respiratory syndrome coronavirus 2 (SARS-CoV-2) infection Current Visit: Yes Status: Acute Plan: Respiratory failure oxygenation seems to be improving continue to titrate O2 down hemoglobin stable patient has made significant progress unable to visualize endotracheal tube discuss with the radiologist will need to repeat the chest x- ray blood sugars elevated continue with steroid
--- NOTE | 2020-09-13 15:07 | RAD REPORT ---
EXAM DESCRIPTION: RAD - Chest Single View - 09/13/2020 2:45 pm CLINICAL HISTORY: Resp failure COMPARISON: Portable September 13 TECHNIQUE: AP portable chest image was obtained 09/13/2020 2:45 pm . FINDINGS: Tip of the endotracheal tube is 2.5 cm above the aortic arch. Trachea is midline we were t he endotracheal tube courses through the trachea. There is a right deviation of the trachea that occu r is near the tip of the endotracheal tube. Feeding tube extends below the diaphragm into the antrum or proximal duodenum. Tube is not optimally visualized. Bilateral lung parenchymal opacification, worse on the left, not substantially different from earlier study. Heart size is prominent but stable. No measurable pleural effusion and no pneumothorax. No ac paddy bony abnormality seen. No acute aortic findings suspected. IMPRESSION: Tip of the ET tube 2.5 cm above the aortic arch. Trachea shows right deviation just distal to the ET tube tip. Feeding tube is in the antrum or proximal duodenum.
--- NOTE | 2020-09-13 20:19 | P.PN ---
Subjective Date of Service: 09/13/20 Primary Care Provider: Dr. Mathis Chief Complaint: bilateral covid pneumonia Subjective: Other (patient remains intubated on pressure support) Physical Examination - Vital Signs Temperature: 97.7 F Blood Pressure: 125/44 Pulse: 91 Respirations: 21 Pulse Ox (%): 93 - Studies Microbiology Data (last 24 hrs): 09/08/20 10:48 Blood - Blood Aerobic Blood Culture - Final No growth in 5 days. 09/08/20 10:48 Blood - Blood Anaerobic Blood Culture - Final No growth in 5 days. 09/08/20 10:50 Blood - Blood Aerobic Blood Culture - Final No growth in 5 days. 09/08/20 10:50 Blood - Blood Anaerobic Blood Culture - Final No growth in 5 days. Medications List Reviewed: Yes Assessment & Plan Discharge Plan: Other (Home vs LTAC) Plan to discharge in: Greater than 2 days Physician Review Additional Text: Physical exam: Patient remains intubated. Heart: Regular rate Lungs: Patient on ventilator Abdomen: Soft Extremities: No focal deficits Impression: Dyspnea secondary to acute respiratory failure now with acute respiratory syndrome related to bilateral COVID 19 pneumonia Diabetes mellitus type 2 with hyperglycemia Hypertension Anemia of chronic disease Atrial fibrillation UTI, urine culture positive for Enterococcus Acute renal insufficiency Plan: Dyspnea secondary to acute respiratory failure now with acute respiratory syndrome related to bilateral COVID 19 pneumonia: Patient remains intubated. Spoke to Pulmonary. Pulmonary to discuss with Radiology on recent xray to confirm placement of tubes. Continue with high-dose steroids, Remdesivir and supplementation. Continue with Lovenox full dose. Still need to discuss with family about plan of care. Diabetes mellitus type 2 with hyperglycemia: Will need to adjust medication for better control. Continue Accu-Cheks and sliding scale. Hypertension: Continue with current medication Anemia of chronic disease: Will monitor closely. Atrial fibrillation: Patient received metoprolol and digoxin. Continue Lovenox at full dose. UTI, urine culture positive for Enterococcus: Continue with antibiotic therapy. Acute renal insufficiency: Improved. Will continue to monitor closely. Time Spent Managing Pts Care (In Minutes): 55
[2020-09-13] MEDS: INSULIN GLARGINE 100 UNITS/ML SQ SCH (21:23)
[2020-09-14] MEDS: INSULIN -REGULAR HUMAN 50 UNIT/0.5 ML ML SQ SCH ×4 (00:34→18:13)
[2020-09-14] MEDS: LORazepam 2 MG/ML VIAL IV PRN ×5 (00:35→20:53)
[2020-09-14] MEDS: VITAL HP 1,000 ML BOT RTH SCH (04:13)
[2020-09-14] MEDS: CISATRACURIUM INJECTION 2 MG/ML (10 ML Vial) IV PRN ×2 (04:34→12:23)
[2020-09-14 05:29] LABS: Albumin 2.2 g/dL (3.4-5.0); Bilirubin Total 0.5 mg/dL (0.2-1.0); Ferritin 147.9 ng/mL (8-388); Magnesium 2.1 mg/dL (1.8-2.4); Potassium 4.8 mmol/L (3.5-5.1); Protein, Total 5.6 g/dL (6.4-8.2)
[2020-09-14] MEDS: HYDROMORPHONE HCL 2 MG/ML inj IV PRN ×3 (05:45→20:52)
[2020-09-14 06:12] LABS: Absolute Lymphocytes (CBC) 0.3 K/uL (0.7-4.9); Basophils % 0.7 % (0-1.3); Hematocrit 28.3 % (36.0-45.0); Lymphocytes % 6.8 % (15.3-44.8); MPV 9.4 fL (7.6-11.3); RBC Red Blood Cell Count 3.22 M/uL (3.86-4.86)
[2020-09-14 08:09] LABS: Blood Morphology Comment NOT SEEN (NOT SEEN); Platelet Estimate DECR
[2020-09-14] MEDS: THIAMINE 200 MG/2 ML INJ IVP SCH ×2 (08:42→20:21)
[2020-09-14] MEDS: ENOXAPARIN 100 MG/ML SYR SQ SCH ×2 (08:42→20:22)
[2020-09-14] MEDS: METHYLPREDNISOLONE 125 MG INJ IV SCH ×3 (08:42→20:21)
[2020-09-14] MEDS: FAMOTIDINE 20 MG/2 ML VIAL IV SCH ×2 (08:42→20:21)
[2020-09-14] MEDS: ZINC SULFATE 220 MG CAP PO SCH (08:43)
[2020-09-14] MEDS: VITAMIN D 5,000 UNIT CAP PO SCH (08:43)
[2020-09-14] MEDS: ASCORBIC ACID 500 MG TABLET PO SCH ×4 (08:43→20:21)
[2020-09-14] MEDS: Levofloxacin500mg IV 500 MG/100 ML BAG IV SCH (11:00)
--- NOTE | 2020-09-14 12:14 | P.PN ---
Subjective Date of Service: 09/14/20 Primary Care Provider: Dr. Mathis Chief Complaint: bilateral covid pneumonia Subjective: Improving (Patient's oxygen requirements are declining little hypernatremic) Review of Systems is unable to be obtained Physical Examination - Vital Signs Temperature: 97.0 F Blood Pressure: 160/87 Pulse: 114 Respirations: 30 Pulse Ox (%): 93 - Physical Exam General: Moderate distress Respiratory: Clear to auscultation bilaterally, Diminished - Studies Microbiology Data (last 24 hrs): 09/08/20 10:48 Blood - Blood Aerobic Blood Culture - Final No growth in 5 days. 09/08/20 10:48 Blood - Blood Anaerobic Blood Culture - Final No growth in 5 days. 09/08/20 10:50 Blood - Blood Aerobic Blood Culture - Final No growth in 5 days. 09/08/20 10:50 Blood - Blood Anaerobic Blood Culture - Final No growth in 5 days. Medications List Reviewed: Yes Assessment & Plan - Problems (Diagnosis) (1) Acute respiratory failure due to severe acute respiratory syndrome coronavirus 2 (SARS-CoV-2) infection Current Visit: Yes Status: Acute Plan: Respiratory failure oxygenation improving normal sinus rhythm fully anti coagulated repeat chest x-ray trial of fluid flushes patient hypernatremic Dc antibiotic i.e. Enterococcus isolated in the urine patient was treated with levofloxacin repeat urine culture consider using ampicillin or amoxicillin instead
--- NOTE | 2020-09-14 12:18 | P.PN ---
Subjective Date of Service: 09/14/20 Primary Care Provider: Dr. Mathis Chief Complaint: bilateral covid pneumonia Subjective: Other (Patient remains intubated and sedated.) Physical Examination - Vital Signs Temperature: 97.0 F Blood Pressure: 160/87 Pulse: 114 Respirations: 30 Pulse Ox (%): 93 - Studies Microbiology Data (last 24 hrs): 09/08/20 10:48 Blood - Blood Aerobic Blood Culture - Final No growth in 5 days. 09/08/20 10:48 Blood - Blood Anaerobic Blood Culture - Final No growth in 5 days. 09/08/20 10:50 Blood - Blood Aerobic Blood Culture - Final No growth in 5 days. 09/08/20 10:50 Blood - Blood Anaerobic Blood Culture - Final No growth in 5 days. Medications List Reviewed: Yes Assessment & Plan Discharge Plan: Home Plan to discharge in: Greater than 2 days Physician Review Additional Text: Physical exam: Patient remains intubated and sedated. Heart: Regular rate Lungs: Patient on ventilator. FiO2 at 55% Abdomen: Soft Extremities: No focal deficits Impression: Dyspnea secondary to acute respiratory failure now with acute respiratory syndrome related to bilateral COVID 19 pneumonia Diabetes mellitus type 2 with hyperglycemia Hypertension Anemia of chronic disease Atrial fibrillation paroxysmall UTI, urine culture positive for Enterococcus Acute renal insufficiency Plan: Dyspnea secondary to acute respiratory failure now with acute respiratory syndrome related to bilateral COVID 19 pneumonia: Patient remains stable. Patient on ventilator at 55% Fi02. Spoke with pulmonology. Pulmonology reports patient has improved. Continue IV steroid and supplementation. Patient has completed course of remdesivir. Will discuss with family to see if they want convalescent plasma. Will discussed risk and benefit. Continue to wean off ventilator. Continue tube feeds. Will add water flushes. Levaquin has been discontinued as her UTI course has been completed. Levaquin also increases risk for AFib. Patient with sinus tachycardia. Will provide metoprolol as needed. Continue full-dose Lovenox. Will discuss with family about plan of care. Diabetes mellitus type 2 with hyperglycemia: Continue to adjust medication for better control. Continue Accu-Cheks and sliding scale. Hypertension: Will provide metoprolol as needed. Anemia of chronic disease: Will monitor closely. Atrial fibrillation paroxysmall: No further AFib noted. Patient remains on IV metoprolol as needed. Lovenox at full dose. UTI, urine culture positive for Enterococcus: Patient has completed course of Levaquin. Will discontinue. Recheck urine culture. Acute renal insufficiency: Will start water flushes. Will monitor renal function. Continue tube feeds. Time Spent Managing Pts Care (In Minutes): 55
--- NOTE | 2020-09-14 14:50 | RAD REPORT ---
EXAM DESCRIPTION: Marti Single View09/14/2020 2:29 pm CLINICAL HISTORY: Chest pain COMPARISON: September 13 FINDINGS: Development of pneumomediastinum and subcutaneous emphysema within the upper chest and ne ck. The tip of an endotracheal tube overlies the aortic arch. Feeding tube in place Mild worsening in the right and mild improvement in left pulmonary opacities. IMPRESSION: Development of pneumomediastinum and subcutaneous emphysema Patient's nurse Kari notified 2:43 p.m. September 14, 2020
[2020-09-14] MEDS: INSULIN GLARGINE 100 UNITS/ML SQ SCH (20:22)
[2020-09-15] MEDS: INSULIN -REGULAR HUMAN 50 UNIT/0.5 ML ML SQ SCH ×4 (00:16→17:52)
[2020-09-15] MEDS: CISATRACURIUM INJECTION 2 MG/ML (10 ML Vial) IV PRN ×2 (03:24→07:52)
[2020-09-15] MEDS: LORazepam 2 MG/ML VIAL IV PRN ×4 (03:24→20:55)
[2020-09-15] MEDS: VITAL HP 1,000 ML BOT RTH SCH (03:25)
[2020-09-15] MEDS: FENTANYL CITR 100 MCG/2 ML IV PRN (03:40)
[2020-09-15] MEDS: HYDROMORPHONE HCL 2 MG/ML inj IV PRN ×4 (05:18→20:56)
[2020-09-15 05:33] LABS: Absolute Lymphocytes (CBC) 0.4 K/uL (0.7-4.9); Basophils % 0.4 % (0-1.3); Hematocrit 31.4 % (36.0-45.0); Lymphocytes % 6.5 % (15.3-44.8); RBC Red Blood Cell Count 3.54 M/uL (3.86-4.86)
[2020-09-15 06:00] LABS: Albumin 2.5 g/dL (3.4-5.0); Bilirubin Total 0.8 mg/dL (0.2-1.0); C-Reactive Protein 21.8 mg/L (<3.00); Protein, Total 6.3 g/dL (6.4-8.2)
[2020-09-15 06:05] LABS: Magnesium 2.1 mg/dL (1.8-2.4); Potassium 4.9 mmol/L (3.5-5.1)
[2020-09-15 06:40] LABS: Arterial Blood Carboxyhemoglob 1.9 % (0-1.5); Blood Gas Oxyhemoglobin 87.6 % (94-97); Blood O2 Saturation 90.1 % (92-98.5)
--- NOTE | 2020-09-15 07:38 | RAD REPORT ---
EXAM DESCRIPTION: RAD - Chest Single View - 09/15/2020 5:34 am CLINICAL HISTORY: Pneumonia COMPARISON: Portable September 14 TECHNIQUE: AP portable chest image was obtained 09/15/2020 5:34 am . FINDINGS: Endotracheal tube tip is mid aortic arch, stable in positioning. Feeding tube extends belo w the diaphragm, off the field of view. Low lung volumes are present. Interstitial and alveolar opacities are present stable or perhaps fract ionally improved. Any interval change is nominal. Cardiac silhouette remains prominent but is stable. No progressive vascular engorgement. Trachea is m idline. Subcutaneous emphysema at the left base the neck and supraclavicular region also stable. No p neumothorax. No enlarging pleural effusion. Delete select IMPRESSION: Stable positioning of the endotracheal tube at the mid aortic arch level. Stable to perhaps fractionally improved aeration of both lung campos.
[2020-09-15] MEDS: THIAMINE 200 MG/2 ML INJ IVP SCH ×2 (07:50→20:33)
[2020-09-15] MEDS: ZINC SULFATE 220 MG CAP PO SCH (07:50)
[2020-09-15] MEDS: ENOXAPARIN 100 MG/ML SYR SQ SCH (07:50)
[2020-09-15] MEDS: FAMOTIDINE 20 MG/2 ML VIAL IV SCH ×2 (07:50→20:33)
[2020-09-15] MEDS: METHYLPREDNISOLONE 125 MG INJ IV SCH ×3 (07:50→20:33)
[2020-09-15] MEDS: ASCORBIC ACID 500 MG TABLET PO SCH ×4 (07:51→20:33)
[2020-09-15] MEDS: VITAMIN D 5,000 UNIT CAP PO SCH (07:52)
--- NOTE | 2020-09-15 08:32 | P.PN ---
Subjective Date of Service: 09/15/20 Primary Care Provider: Dr. Mathis Chief Complaint: bilateral covid pneumonia Subjective: Other (Patient remains intubated. Patient received some sedation medication.) Physical Examination - Vital Signs Temperature: 103 F Blood Pressure: 82/54 Pulse: 95 Respirations: 32 Pulse Ox (%): 93 - Studies Medications List Reviewed: Yes Assessment & Plan Discharge Plan: Home Plan to discharge in: Greater than 2 days Physician Review Additional Text: Physical exam: Patient remains intubated and sedated. Heart: Regular rate Lungs: Patient on ventilator. FiO2 at 55% Abdomen: Soft Extremities: No focal deficits Impression: Dyspnea secondary to acute respiratory failure now with acute respiratory syndrome related to bilateral COVID 19 pneumonia Diabetes mellitus type 2 with hyperglycemia Hypertension Anemia of chronic disease Atrial fibrillation paroxysmall UTI, urine culture positive for Enterococcus Acute renal insufficiency Plan: Dyspnea secondary to acute respiratory failure now with acute respiratory syndrome related to bilateral COVID 19 pneumonia: Patient remained stable. Patient remains intubated and slightly sedated. Patient on ventilator at 55% Fi02. Will discuss case further with pulmonology. Continue IV steroid and supp lementation. Patient received convalescent plasma yesterday. Continue tube feeds. Water flushes added. Levaquin discontinued yesterday as patient finish course of UTI treatment. Repeat urine culture pending. IV metoprolol added as needed. Patient remains on full-dose anti coagulation therapy. May need to hold if platelet count less than 90. Will discuss with family about plan of care. Message left yesterday. I tried to reach out to them yesterday but not able to get in contact with him. Will reach out again today. Diabetes mellitus type 2 with hyperglycemia: Continue to adjust medication for better control. Lantus increased to stay. Continue Accu-Cheks and sliding scale. Hypertension: Will provide metoprolol as needed. Anemia of chronic disease: Will monitor closely. Atrial fibrillation paroxysmall: No further AFib noted. Patient remains on IV metoprolol as needed. Lovenox at full dose. UTI, urine culture positive for Enterococcus: Patient completed course of Levaquin. Recheck urine culture to monitor stability. Acute renal insufficiency: Continue water flushes. Will monitor renal function. Continue tube feeds. Time Spent Managing Pts Care (In Minutes): 55
[2020-09-15] MEDS: APIXABAN 5 MG TABLET PO SCH ×2 (11:09→20:33)
--- NOTE | 2020-09-15 13:42 | P.PN ---
Subjective Date of Service: 09/27/20 Primary Care Provider: Dr. Mathis Chief Complaint: Respiratory failed No change oxygenation seems to be improving patient is hypernatremic still requiring sedation Review of Systems is unable to be obtained Physical Examination - Vital Signs Temperature: 103 F Blood Pressure: 108/57 Pulse: 84 Respirations: 23 Pulse Ox (%): 90 - Physical Exam General: Unresponsive Respiratory: Clear to auscultation bilaterally, Diminished Cardiovascular: No edema, Regular rate/rhythm - Studies Medications List Reviewed: Yes Assessment & Plan - Problems (Diagnosis) (1) Acute respiratory failure due to severe acute respiratory syndrome coronavirus 2 (SARS-CoV-2) infection Current Visit: Yes Status: Acute Plan: Respiratory failure continue titrate O2 down to sat of 90% consider changing over over to SIMV pressure support start on D5 water patient is hypernatremic blood sugars elevated increase insulin
[2020-09-15] MEDS ORDERED: D5W 1,000 ML IV SCH (14:00)
[2020-09-15] MEDS ORDERED: INSULIN 70/30 100 UNITS/ML SQ SCH (16:30)
[2020-09-15] MEDS: INSULIN GLARGINE 100 UNITS/ML SQ SCH (20:34)
[2020-09-16] MEDS: INSULIN -REGULAR HUMAN 50 UNIT/0.5 ML ML SQ SCH ×5 (00:11→23:33)
[2020-09-16] MEDS: VITAL HP 1,000 ML BOT RTH SCH ×2 (01:05→21:30)
[2020-09-16] MEDS: LORazepam 2 MG/ML VIAL IV PRN ×4 (03:52→21:26)
[2020-09-16] MEDS: HYDROMORPHONE HCL 2 MG/ML inj IV PRN ×6 (03:52→23:10)
[2020-09-16 05:52] LABS: Absolute Lymphocytes (CBC) 0.5 K/uL (0.7-4.9); Basophils % 0.5 % (0-1.3); Hematocrit 27.7 % (36.0-45.0); Lymphocytes % 9.1 % (15.3-44.8); MPV 10.2 fL (7.6-11.3); RBC Red Blood Cell Count 3.13 M/uL (3.86-4.86)
[2020-09-16 05:56] LABS: Arterial Blood Carboxyhemoglob 1.9 % (0-1.5); Blood Gas Oxyhemoglobin 90.4 % (94-97)
[2020-09-16 06:14] LABS: ALT/SGPT 27 U/L (12-78); AST/SGOT 22 U/L (15-37); Albumin 2.3 g/dL (3.4-5.0); Alkaline Phosphatase 124 U/L (45-117); BUN Blood Urea Nitrogen 51 mg/dL (7-18); Bicarbonate 34 mmol/L (21-32); Bilirubin Total 0.7 mg/dL (0.2-1.0); Ferritin 195.4 ng/mL (8-388); Glucose Level 319 mg/dL (74-106); Potassium 4.7 mmol/L (3.5-5.1); Protein, Total 5.4 g/dL (6.4-8.2); Sodium Level 147 mmol/L (136-145)
[2020-09-16 07:26] LABS: Blood Morphology Comment NOT SEEN (NOT SEEN); Platelet Estimate DECR; White Blood Cell Scan OK (OK)
[2020-09-16] MEDS: VITAMIN D 1000 UNIT TAB PO SCH (08:37)
[2020-09-16] MEDS: ZINC SULFATE 220 MG CAP PO SCH (08:37)
[2020-09-16] MEDS: ASCORBIC ACID 500 MG TABLET PO SCH ×4 (08:37→20:13)
[2020-09-16] MEDS: APIXABAN 5 MG TABLET PO SCH ×2 (08:37→20:12)
[2020-09-16] MEDS: FAMOTIDINE 20 MG/2 ML VIAL IV SCH ×2 (08:38→20:13)
[2020-09-16] MEDS: METHYLPREDNISOLONE 125 MG INJ IV SCH ×3 (08:38→20:13)
[2020-09-16] MEDS: THIAMINE 200 MG/2 ML INJ IVP SCH ×2 (08:44→20:13)
--- NOTE | 2020-09-16 09:34 | P.PN ---
Subjective Date of Service: 09/16/20 Primary Care Provider: Dr. Mathis Chief Complaint: Respiratory failed Subjective: Other (Patient remains intubated) Physical Examination - Vital Signs Temperature: 97.6 F Blood Pressure: 114/65 Pulse: 94 Respirations: 18 Pulse Ox (%): 94 - Studies Medications List Reviewed: Yes Assessment & Plan Discharge Plan: Home Plan to discharge in: Greater than 2 days Physician Review Additional Text: Physical exam: Patient remains intubated and sedated. Heart: Regular rate Lungs: Patient on ventilator. FiO2 at 55% Abdomen: Soft Extremities: No focal deficits Impression: Dyspnea secondary to acute respiratory failure now with acute respiratory syndrome related to bilateral COVID 19 pneumonia Diabetes mellitus type 2 with hyperglycemia Hypertension Anemia of chronic disease Atrial fibrillation paroxysmall UTI, urine culture positive for Enterococcus Acute renal insufficiency with hypernatremia Plan: Dyspnea secondary to acute respiratory failure now with acute respiratory syndrome related to bilateral COVID 19 pneumonia: Patient remains intubated. Slightly sedated today. Patient felt wean yesterday. Continue to try to wean off. Patient on 55% Fi02. Spoke with pulmonology. Will decrease IV steroids with noted improvement in inflammatory markers. Continue IV steroid and supplementation. Patient also received received convalescent plasma the other day. Sodium remains at 147. Will increase water flushes. Continue monitor sodium. Patient no longer on D5W. Diabetic medication adjusted for better control. Patient remains on full-dose anti coagulation therapy. May need to hold if platelet count less than 90. Discuss with family in detail pop plan of care yesterday. Will continue to update family. Diabetes mellitus type 2 with hyperglycemia: Continue to adjust medication for better control. Continue to adjust Lantus for better control. Patient no longer on D5W. Continue Accu-Cheks and sliding scale. Hypertension: Patient remains in normal rhythm. Will provide metoprolol as needed. Anemia of chronic disease: Will monitor closely. Atrial fibrillation paroxysmall: No further AFib noted. Patient remains in normal rhythm. Patient remains on IV metoprolol as needed. Lovenox at full dose. UTI, urine culture positive for Enterococcus: No longer on Levaquin. Treatment completed. Await repeat urine culture. Acute renal insufficiency with hypernatremia: Increase water flushes. Will monitor renal function. Continue tube feeds. Time Spent Managing Pts Care (In Minutes): 55
--- NOTE | 2020-09-16 12:47 | RAD REPORT ---
EXAM DESCRIPTION: RAD - Chest Single View - 09/16/2020 12:41 pm CLINICAL HISTORY: Device placement PICC line placement IMPRESSION: PICC line with its tip in the distal superior vena cava
[2020-09-16] MEDS: FLUCONAZOLE 100mg IVPB 100 MG/50 ML BAG IV SCH (16:13)
[2020-09-16] MEDS: INSULIN GLARGINE 100 UNITS/ML SQ SCH (20:12)
[2020-09-17] MEDS: LORazepam 2 MG/ML VIAL IV PRN ×2 (04:28→14:25)
[2020-09-17] MEDS: MIDAZOLAM HCL 2 MG/2 ML INJ IV PRN ×2 (04:45→08:10)
[2020-09-17] MEDS: CISATRACURIUM INJECTION 2 MG/ML (10 ML Vial) IV PRN ×3 (04:45→21:24)
[2020-09-17 05:08] LABS: Absolute Lymphocytes (CBC) 0.5 K/uL (0.7-4.9); Basophils % 0.4 % (0-1.3); Hematocrit 30.9 % (36.0-45.0); Lymphocytes % 8.7 % (15.3-44.8); MPV 10.4 fL (7.6-11.3); RBC Red Blood Cell Count 3.47 M/uL (3.86-4.86)
[2020-09-17 05:26] LABS: ALT/SGPT 28 U/L (12-78); AST/SGOT 13 U/L (15-37); Albumin 2.3 g/dL (3.4-5.0); Alkaline Phosphatase 125 U/L (45-117); BUN Blood Urea Nitrogen 52 mg/dL (7-18); Bicarbonate 34 mmol/L (21-32); Bilirubin Total 0.6 mg/dL (0.2-1.0); Ferritin 148.2 ng/mL (8-388); Glucose Level 345 mg/dL (74-106); Magnesium 2.1 mg/dL (1.8-2.4); Potassium 4.6 mmol/L (3.5-5.1); Protein, Total 5.7 g/dL (6.4-8.2); Sodium Level 146 mmol/L (136-145)
[2020-09-17] MEDS: FENTANYL CITR 100 MCG/2 ML IV PRN (05:30)
[2020-09-17] MEDS: INSULIN -REGULAR HUMAN 50 UNIT/0.5 ML ML SQ SCH ×3 (06:22→18:32)
[2020-09-17] MEDS: HYDROMORPHONE HCL 2 MG/ML inj IV PRN ×4 (08:22→21:24)
[2020-09-17] MEDS: THIAMINE 200 MG/2 ML INJ IVP SCH ×2 (08:36→20:26)
[2020-09-17] MEDS: ASCORBIC ACID 500 MG TABLET PO SCH ×4 (08:37→20:26)
[2020-09-17] MEDS: METHYLPREDNISOLONE 125 MG INJ IV SCH ×2 (08:37→13:19)
[2020-09-17] MEDS: ZINC SULFATE 220 MG CAP PO SCH (08:37)
[2020-09-17] MEDS: APIXABAN 5 MG TABLET PO SCH ×2 (08:37→20:26)
[2020-09-17] MEDS: INSULIN GLARGINE 100 UNITS/ML SQ SCH ×2 (08:37→21:08)
[2020-09-17] MEDS: FAMOTIDINE 20 MG/2 ML VIAL IV SCH (08:37)
[2020-09-17] MEDS: VITAMIN D 1000 UNIT TAB PO SCH (10:10)
--- NOTE | 2020-09-17 10:23 | P.PN ---
Subjective Date of Service: 09/17/20 Primary Care Provider: Dr. Mathis Chief Complaint: Respiratory failed Subjective: Improving (Patient is more alert. Patient remains intubated.) Physical Examination - Vital Signs Temperature: 98.9 F Blood Pressure: 129/65 Pulse: 111 Respirations: 30 Pulse Ox (%): 86 - Studies Medications List Reviewed: Yes Assessment & Plan Discharge Plan: Home Plan to discharge in: Greater than 2 days Physician Review Additional Text: Physical exam: Patient remains intubated and less sedated. She is more alert Heart: Regular rate Lungs: Patient on ventilator. FiO2 at 45% Abdomen: Soft Extremities: No focal deficits Impression: Dyspnea secondary to acute respiratory failure now with acute respiratory syndrome related to bilateral COVID 19 pneumonia Diabetes mellitus type 2 with hyperglycemia Hypertension Anemia of chronic disease Atrial fibrillation paroxysmall UTI, urine culture positive for Enterococcus Acute renal insufficiency with hypernatremia Plan: Dyspnea secondary to acute respiratory failure now with acute respiratory syndrome related to bilateral COVID 19 pneumonia: Patient remains intubated. Less sedated noted today. She is alert. Continue to try to wean off. Patient on 45% Fi02. Steroids decreased yesterday due to improved inflammatory markers. Inflammatory markers continued improvement. Continue IV steroid and supplementation. Patient also received received convalescent plasma the other day. Sodium improved at 146. Water flushes were increased. Continue monitor sodium. Diabetic medication continues to be adjusted for better control. Patient remains on full-dose anti coagulation therapy. May need to hold if platelet count less than 90. Care discussed with family yesterday. Will continue to update family. Diabetes mellitus type 2 with hyperglycemia: Continue to adjust medication for better control. Continue to adjust Lantus for better control. Patient no longer on D5W. Continue Accu-Cheks and sliding scale. Hypertension: Patient remains in normal rhythm. Will provide metoprolol as needed. Anemia of chronic disease: Will monitor closely. Atrial fibrillation paroxysmall: No further AFib noted. Patient remains in normal rhythm. Patient remains on IV metoprolol as needed. Lovenox at full dose. UTI, urine culture positive for Enterococcus: Patient finish course of medication. Repeat culture shows yeast. Diflucan added yesterday. Acute renal insufficiency with hypernatremia: Sodium level improved. Continue water flushes. Will monitor renal function. Continue tube feeds. Time Spent Managing Pts Care (In Minutes): 55
[2020-09-17] MEDS: FLUCONAZOLE 100mg IVPB 100 MG/50 ML BAG IV SCH (18:33)
--- NOTE | 2020-09-17 20:20 | P.PN ---
Subjective Date of Service: 09/17/20 (TV) Primary Care Provider: Dr. Mathis Chief Complaint: Respiratory failure Imrooving agitated. requiring a lot of sedation. Oxygenation improving Physical Examination - Vital Signs Temperature: 98.4 F Blood Pressure: 142/67 Pulse: 91 Respirations: 33 Pulse Ox (%): 90 - Studies Medications List Reviewed: Yes Assessment & Plan - Problems (Diagnosis) (1) Acute respiratory failure due to severe acute respiratory syndrome coronavirus 2 (SARS-CoV-2) infection Current Visit: Yes Status: Acute Plan: resp failure.vIncrease NG fluids cc Q6, Reduce dose of silumederol. Daily CXRY. Hypernatremia. BS elevated. Increase insulin chane to PO difucan. Daily CXRY
[2020-09-17] MEDS: METHYLPREDNISOLONE 40 MG INJ IV SCH (20:29)
[2020-09-17] MEDS: FAMOTIDINE 20 MG TAB PO SCH (20:30)
[2020-09-17] MEDS: INSULIN 70/30 100 UNITS/ML SQ SCH (21:08)
[2020-09-18] MEDS: INSULIN -REGULAR HUMAN 50 UNIT/0.5 ML ML SQ SCH ×5 (00:55→23:56)
[2020-09-18] MEDS: LORazepam 2 MG/ML VIAL IV PRN ×4 (01:00→20:04)
[2020-09-18] MEDS: HYDROMORPHONE HCL 2 MG/ML inj IV PRN ×6 (01:00→20:04)
[2020-09-18] MEDS: CISATRACURIUM INJECTION 2 MG/ML (10 ML Vial) IV PRN ×2 (04:30→06:21)
[2020-09-18 05:21] LABS: Absolute Lymphocytes (CBC) 0.4 K/uL (0.7-4.9); Basophils % 0.2 % (0-1.3); Hematocrit 31.8 % (36.0-45.0); MPV 10.8 fL (7.6-11.3); RBC Red Blood Cell Count 3.55 M/uL (3.86-4.86)
[2020-09-18 05:46] LABS: ALT/SGPT 32 U/L (12-78); AST/SGOT 18 U/L (15-37); Albumin 2.3 g/dL (3.4-5.0); Alkaline Phosphatase 124 U/L (45-117); BUN Blood Urea Nitrogen 54 mg/dL (7-18); Bicarbonate 36 mmol/L (21-32); Bilirubin Total 0.8 mg/dL (0.2-1.0); C-Reactive Protein 9.59 mg/L (<3.00); Ferritin 114.2 ng/mL (8-388); Glucose Level 295 mg/dL (74-106); Magnesium 2.2 mg/dL (1.8-2.4); Potassium 4.4 mmol/L (3.5-5.1); Protein, Total 5.8 g/dL (6.4-8.2); Sodium Level 150 mmol/L (136-145)
[2020-09-18] MEDS: MIDAZOLAM HCL 2 MG/2 ML INJ IV PRN ×2 (06:20→13:15)
[2020-09-18 07:55] LABS: Blood Morphology Comment NOT SEEN (NOT SEEN); Platelet Estimate DECR; White Blood Cell Scan OK (OK)
[2020-09-18] MEDS: METOPROLOL TARTRATE 5 MG/5 ML INJ IV PRN (07:58)
[2020-09-18] MEDS: FENTANYL CITR 100 MCG/2 ML IV PRN (08:05)
[2020-09-18] MEDS: THIAMINE 200 MG/2 ML INJ IVP SCH ×2 (08:37→19:50)
[2020-09-18] MEDS: METHYLPREDNISOLONE 40 MG INJ IV SCH ×2 (08:37→19:50)
[2020-09-18] MEDS: FLUCONAZOLE 100 MG TAB PO SCH (08:38)
[2020-09-18] MEDS: INSULIN GLARGINE 100 UNITS/ML SQ SCH ×2 (08:38→20:26)
[2020-09-18] MEDS: VITAMIN D 1000 UNIT TAB PO SCH (08:38)
[2020-09-18] MEDS: INSULIN 70/30 100 UNITS/ML SQ SCH (08:38)
[2020-09-18] MEDS: ASCORBIC ACID 500 MG TABLET PO SCH ×4 (08:39→19:51)
[2020-09-18] MEDS: ZINC SULFATE 220 MG CAP PO SCH (08:39)
[2020-09-18] MEDS: FAMOTIDINE 20 MG TAB PO SCH ×2 (08:39→19:50)
[2020-09-18] MEDS: APIXABAN 5 MG TABLET PO SCH ×2 (08:39→19:50)
--- NOTE | 2020-09-18 13:09 | RAD REPORT ---
EXAM DESCRIPTION: RAD - Chest Single View - 09/18/2020 4:10 am CLINICAL HISTORY: resp failure Chest pain. COMPARISON: Chest Single View dated 09/16/2020; Chest Single View dated 09/15/2020; Chest Single View da ve[place] 09/14/2020; Chest Single View dated 09/13/2020; CHEST PA AND LAT 2 VIEW dated 04/22/2015 FINDINGS: Portable technique limits examination quality. Tip of the endotracheal tube is at the level of the aortic arch. Enteric tube descends into the upper abdomen. Bilateral pulmonary opacities appear mildly improved since prior study. The heart is modera tely enlarged in size. Right-sided PICC line is stable in position. Slight subcutaneous emphysema is seen along the base of the neck and probably there is also mild superior pneumomediastinum.
--- NOTE | 2020-09-18 13:56 | P.PN ---
Subjective Date of Service: 09/18/20 Primary Care Provider: Dr. Mathis Chief Complaint: Respiratory failure Subjective: No new changes, Doing well Physical Examination - Vital Signs Temperature: 97.5 F Blood Pressure: 150/65 Pulse: 85 Respirations: 32 Pulse Ox (%): 92 - Studies Medications List Reviewed: Yes Assessment & Plan Discharge Plan: Home Plan to discharge in: Greater than 2 days Physician Review Additional Text: Physical exam: Patient remains intubated and less sedated. She is more alert Heart: Regular rate Lungs: Patient on ventilator. FiO2 at 45% Abdomen: Soft Extremities: No focal deficits Impression: Dyspnea secondary to acute respiratory failure now with acute respiratory syndrome related to bilateral COVID 19 pneumonia Diabetes mellitus type 2 with hyperglycemia Hypertension Anemia of chronic disease Atrial fibrillation paroxysmall UTI, urine culture positive for Enterococcus Acute renal insufficiency with hypernatremia Plan: Dyspnea secondary to acute respiratory failure now with acute respiratory syndrome related to bilateral COVID 19 pneumonia: Patient remains intubated. Less sedated noted today. Patient was alert this morning. Continue to try to wean off. Patient on 45% Fi02. Continue current management. Continue IV steroid and supplementation. Sodium remains elevated. Patient had not making getting adequate water flushes. This was addressed in detail with pulmonology and nursing. Nurses to continue with water flushes As directed. Nephrology consulted to help further. Continue monitor sodium. Diabetic medication continues to be adjusted for better control. Patient remains on full-dose anti coagulation therapy. May need to hold if platelet count less than 90. Care discussed with family yesterday. Will continue to update family. I will turn the service over to the hospitalist team tomorrow. I will go plan of care with him. Diabetes mellitus type 2 with hyperglycemia: Continue to adjust medication for better control. Continue to adjust Lantus for better control. Patient no longer on D5W. Continue Accu-Cheks and sliding scale. Hypertension: Patient remains in normal rhythm. Will provide metoprolol as needed. Anemia of chronic disease: Will monitor closely. Atrial fibrillation paroxysmall: No further AFib noted. Patient remains in normal rhythm. Patient remains on IV metoprolol as needed. Lovenox at full dose. UTI, urine culture positive for Enterococcus: Patient finish course of medication. Repeat culture shows yeast. Diflucan added yesterday. Acute renal insufficiency with hypernatremia: Water flushes had not been adequately given. Water flushes to be continued. Nephrology consulted. Await recommendation. Time Spent Managing Pts Care (In Minutes): 55
--- NOTE | 2020-09-18 16:37 | P.PN ---
Subjective Date of Service: 09/27/20 (TV) Primary Care Provider: Dr. Mathis Chief Complaint: Respiratory failure No change pt is agitated,Still requiring sedation Physical Examination - Vital Signs Temperature: 97.5 F Blood Pressure: 150/65 Pulse: 85 Respirations: 32 Pulse Ox (%): 92 - Studies Medications List Reviewed: Yes Assessment & Plan - Problems (Diagnosis) (1) Acute respiratory failure due to severe acute respiratory syndrome c oronavirus 2 (SARS-CoV-2) infection Current Visit: Yes Status: Acute Plan: Resp failure.No change/VS stable. CXRY reviewed, Hypernatremia. CW water flushes. Trial of DDAVPBS elevated.Ptis on eliquis. Poss trachFio2 lass than 60% BS eleated
--- NOTE | 2020-09-18 18:00 | P.CNS ---
Primary Care Provider: Dr. Mathis Chief Complaint: Respiratory failure History of Present Illness: Pt is a 74 y/o female with past medical hx of cirrhosis, hypertension, recently diagnosed covid on 08/06 initially presented with shortness on breath requiring high flow oxygen supplementation. Since admission, clinical course has only worsened, pt now intubated, complicated with atrial fibrillation with rvr, uti, and currently hypernatremia. Renal has been consulted for hypernatremia. Pt started on ddavp per primary team. Free floyd ordered per primary team. Allergies No Known Drug Allergies Allergy (Verified 04/22/15 10:58) Unknown No Known Allergie Allergy (Uncoded 12/08/16 12:11) Unknown Home Medications: Irbesartan/Hydrochlorothiazide [Avalide 300-12.5 mg Tablet] 1 tab PO DAILY 11/24/13 Duloxetine HCl [Cymbalta] 60 mg PO DAILY 08/13/20 Budesonide 2 mg IN QID 09/09/20 Metronidazole 500 mg PO TID 09/09/20 Rivaroxaban [Xarelto] 20 mg PO DAILY 09/09/20 predniSONE [Prednisone] 20 mg PO TITR 09/09/20 - Past Medical/Surgical History Diabetic: Yes -: HTN -: CHRONIC CONSTIPATION -: CHRONIC PANCREATITIS -: FREQUENT UTI -: DM -: LIVER Cirrhosis -: COVID Pneumonia -: APPENDECTOMY -: TONSILLECTOMY - Family History Mother Medical History: Heart disease, Hypertension Father Medical History: Hypertension Notes: AAA - Social History Smoking Status: Never smoker Alcohol use: No CD- Drugs: No Caffeine use: Yes Place of Residence: Home Review of Systems is unable to be obtained (due to being intubated) Physical Examination Temp Pulse Resp BP Pulse Ox 97.5 F 85 35 H 150/65 H 93 09/18/20 16:37 09/18/20 16:37 09/18/20 17:09 09/18/20 16:37 09/18/20 17:09 Conclusions/Impression: Problems Bolton virus with respiratoruy distress Hypernatremia Acute hypoxic respiratory failure Hypertension Plan Maintain maps >65 Correct hypernatremia with 1/4ns givenhigh glucose levels will not want to use D5W. Pt is currently npo and cannot take any free water Physician Review Additional Text: Problems Bolton virus CHENG Hypernatremia secondary to free water deficit Hypoxic respiratory failure Hypertension Plan Pt started on ddavp, agree with Will increase free water flushes to 350cc/4h Further recommendations pending next AM sodium level Strict i/0 Other management per primary team
[2020-09-18] MEDS: DESMOPRESSIN 4 MCG/ML AMP SQ SCH (18:27)
[2020-09-18] MEDS ORDERED: INSULIN GLARGINE 100 UNITS/ML SQ SCH ×2 (21:00)
[2020-09-19] MEDS: LORazepam 2 MG/ML VIAL IV PRN ×4 (00:01→15:08)
[2020-09-19] MEDS: HYDROMORPHONE HCL 2 MG/ML inj IV PRN ×5 (00:01→22:30)
[2020-09-19 05:42] LABS: ALT/SGPT 36 U/L (12-78); AST/SGOT 24 U/L (15-37); Albumin 2.1 g/dL (3.4-5.0); Alkaline Phosphatase 115 U/L (45-117); BUN Blood Urea Nitrogen 60 mg/dL (7-18); Bicarbonate 36 mmol/L (21-32); Bilirubin Total 0.8 mg/dL (0.2-1.0); Ferritin 111.6 ng/mL (8-388); Glucose Level 276 mg/dL (74-106); Magnesium 2.1 mg/dL (1.8-2.4); Phosphorus 3.9 mg/dL (2.5-4.9); Potassium 4.7 mmol/L (3.5-5.1); Protein, Total 5.3 g/dL (6.4-8.2); Sodium Level 146 mmol/L (136-145)
[2020-09-19] MEDS: INSULIN -REGULAR HUMAN 50 UNIT/0.5 ML ML SQ SCH ×3 (06:26→17:35)
--- NOTE | 2020-09-19 07:29 | RAD REPORT ---
EXAM DESCRIPTION: RAD - Chest Single View - 09/19/2020 6:18 am CLINICAL HISTORY: resp failure, intubation COMPARISON: September 18 portable TECHNIQUE: AP portable chest image was obtained 09/19/2020 6:18 am . FINDINGS: Tip of the endotracheal tube is mid aortic arch. Feeding tube extends below the diaphragm with the tip off the field of view. Right-sided PICC line in good position. Bilateral lung parenchymal opacification not substantially different from prior day imaging. No pneum othorax identified. No enlarging pleural effusion. Heart size is upper normal, stable. Vasculature wi thin normal limits. Subcutaneous emphysema has worsened slightly since the prior day study. IMPRESSION: Stable bilateral lung parenchymal opacification compared to September 18. Slight worsening of the subcutaneous emphysema. Suspected pneumomediastinum has not changed. Endotracheal tube tip mid aortic arch.
[2020-09-19] MEDS: THIAMINE 200 MG/2 ML INJ IVP SCH ×2 (08:29→20:05)
[2020-09-19] MEDS: ZINC SULFATE 220 MG CAP PO SCH (08:29)
[2020-09-19] MEDS: APIXABAN 5 MG TABLET PO SCH ×2 (08:29→19:59)
[2020-09-19] MEDS: ASCORBIC ACID 500 MG TABLET PO SCH ×4 (08:29→20:05)
[2020-09-19] MEDS: VITAMIN D 1000 UNIT TAB PO SCH (08:29)
[2020-09-19] MEDS: FAMOTIDINE 20 MG TAB PO SCH ×2 (08:29→20:00)
[2020-09-19] MEDS: METHYLPREDNISOLONE 40 MG INJ IV SCH ×2 (08:29→20:00)
[2020-09-19] MEDS: DESMOPRESSIN 4 MCG/ML AMP SQ SCH ×2 (08:30→19:58)
[2020-09-19] MEDS: INSULIN GLARGINE 100 UNITS/ML SQ SCH ×2 (08:30→19:59)
[2020-09-19] MEDS: FLUCONAZOLE 100 MG TAB PO SCH (08:31)
--- NOTE | 2020-09-19 17:34 | P.PN ---
Subjective Date of Service: 09/27/20 Primary Care Provider: Dr. Mathis Chief Complaint: Respiratory failure no change continues to remain very agitated requiring significant sedation hypernatremia is improving Review of Systems is unable to be obtained Physical Examination - Vital Signs Temperature: 98.3 F Blood Pressure: 118/61 Pulse: 98 Respirations: 12 Pulse Ox (%): 88 - Studies Medications List Reviewed: Yes Assessment & Plan - Problems (Diagnosis) (1) Acute respiratory failure due to severe acute respiratory syndrome coronavirus 2 (SARS-CoV-2) infection Current Visit: Yes Status: Acute Plan: admitted with respiratory failure condition stable still continues to remain very agitated blood sugars elevated consult ENT for possible trach hypernatremia is improving reduce dose of Solu-Medrol increase insulin chest x-ray stable minimal subcu emphysema
--- NOTE | 2020-09-19 19:16 | P.PN ---
Subjective Date of Service: 09/19/20 Primary Care Provider: Dr. Mathis Chief Complaint: Respiratory failure Pt still intubated. No acute changes overnight. Review of Systems is unable to be obtained (due to pt being intubated) Physical Examination - Vital Signs Temperature: 98.3 F Blood Pressure: 147/75 Pulse: 95 Respirations: 13 Pulse Ox (%): 90 - Physical Exam General: Other (intubated) HEENT: Atraumatic, PERRLA, EOMI Neck: Supple, JVD not distended Respiratory: Diminished Cardiovascular: Regular rate/rhythm, Normal S1 S2 Capillary refill: <2 Seconds Gastrointestinal: Normal bowel sounds, No tenderness Musculoskeletal: No tenderness Integumentary: No rashes Neurological: Other - Studies Medications List Reviewed: Yes Assessment & Plan Physician Review Additional Text: Problems Bolton virus CHENG Hypernatremia secondary to free water deficit Hypoxic respiratory failure Hypertension Plan C/w ddavp, agree with Decrease free water flushes to 250cc/4h Further recommendations pending next AM sodium level Strict i/0 Other management per primary team
[2020-09-20] MEDS: INSULIN -REGULAR HUMAN 50 UNIT/0.5 ML ML SQ SCH ×4 (00:17→17:06)
[2020-09-20] MEDS: HYDROMORPHONE HCL 2 MG/ML inj IV PRN ×5 (04:00→20:39)
[2020-09-20 06:21] LABS: BUN Blood Urea Nitrogen 71 mg/dL (7-18); Bicarbonate 35 mmol/L (21-32); Glucose Level 344 mg/dL (74-106); Potassium 4.6 mmol/L (3.5-5.1); Sodium Level 141 mmol/L (136-145)
--- NOTE | 2020-09-20 06:29 | P.PN ---
Subjective Date of Service: 09/19/20 Reviewed chart and events of the last week. Patient has developed pneumomediastinum with subcutaneous emphysema. Patient remains on mechanical ventilation. Nurses do report that when sedation is weaned down if she does follow some commands but it has become less and less over the last week. Will speak with daughter's prognosis remains poor. Review of Systems is unable to be obtained Physical Examination - Vital Signs Temperature: 98.7 F Blood Pressure: 108/65 Pulse: 73 Respirations: 30 Pulse Ox (%): 88 - Physical Exam General: Other (Intubated and sedated) HEENT: Other (ET tube and NG tube in place) Respiratory: Diminished, Crackles/rales Cardiovascular: Regular rate/rhythm, Normal S1 S2, No murmurs Gastrointestinal: Normal bowel sounds, Soft and benign, Non-distended, No tenderness Musculoskeletal: No clubbing, Swelling Integumentary: Other (With crepitus) Neurological: Other (Difficult to examine. Per nursing staff she does move all her extremities and follows commands once her sedation is weaned down) - Studies Medications List Reviewed: Yes Assessment & Plan - Problems (Diagnosis) (1) Acute respiratory failure due to COVID-19 Current Visit: Yes Status: Acute (2) History of chronic pancreatitis Current Visit: Yes Status: Acute (3) Cirrhosis of liver Current Visit: Yes Status: Chronic Qualifiers: Hepatic cirrhosis type: unspecified hepatic cirrhosis Ascites presence: with ascites Qualified Code(s): K74.60 - Unspecified cirrhosis of liver; R18.8 - Other ascites (4) Hypertension Current Visit: Yes Status: Chronic Qualifiers: Hypertension type: essential hypertension Qualified Code(s): I10 - Essential (primary) hypertension (5) Diabetes Current Visit: No Status: Acute Qualifiers: Diabetes mellitus type: type 2 Diabetes mellitus shelter 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 Patient's completed antiviral, Ivermectin, and continues on IV steroids 2. Continue nebs or inhaler therapy as needed 3. Repeat chest x-ray; monitor pneumomediastinum closely 4. Vent management per Pulmonary 5. Continue with tube feedings 6. Discuss with family regarding code status 7. Monitor inflammatory markers 8. GI and DVT prophylaxis Discharge Plan: Home Plan to discharge in: Greater than 2 days - Advance Directives Does patient have a Living Will: No Does patient have a Durable POA for Healthcare: Yes - Code Status/Comfort Care Code Status: Full Code Critical Care: Yes Time Spent Managing PTS Care (In Minutes): 35
--- NOTE | 2020-09-20 07:42 | RAD REPORT ---
EXAM DESCRIPTION: Marti Single View09/20/2020 5:45 am CLINICAL HISTORY: Respiratory failure COMPARISON: September 19, 2020 FINDINGS: Endotracheal tube with its tip at the top of the aortic arch. Feeding tube within the stomach No significant change in bilateral pulmonary opacities. Heart remains enlarged. Pneumomediastinum and subcutaneous emphysema again demonstrated. IMPRESSION: No significant change in the bilateral pulmonary opacities
[2020-09-20] MEDS: LORazepam 2 MG/ML VIAL IV PRN (08:34)
[2020-09-20] MEDS: VITAMIN D 1000 UNIT TAB PO SCH (09:07)
[2020-09-20] MEDS: APIXABAN 5 MG TABLET PO SCH ×2 (09:08→20:32)
[2020-09-20] MEDS: FLUCONAZOLE 100 MG TAB PO SCH (09:08)
[2020-09-20] MEDS: ASCORBIC ACID 500 MG TABLET PO SCH ×4 (09:08→20:38)
[2020-09-20] MEDS: ZINC SULFATE 220 MG CAP PO SCH (09:08)
[2020-09-20] MEDS: FAMOTIDINE 20 MG TAB PO SCH ×2 (09:08→20:33)
[2020-09-20] MEDS: METHYLPREDNISOLONE 40 MG INJ IV SCH ×2 (09:09→20:38)
[2020-09-20] MEDS: DESMOPRESSIN 4 MCG/ML AMP SQ SCH ×2 (09:09→20:32)
[2020-09-20] MEDS: THIAMINE 200 MG/2 ML INJ IVP SCH ×2 (09:09→20:38)
[2020-09-20] MEDS: INSULIN GLARGINE 100 UNITS/ML SQ SCH ×2 (09:10→20:32)
[2020-09-20 10:52] LABS: Arterial Blood Carboxyhemoglob 2.1 % (0-1.5); Blood O2 Saturation 89.5 % (92-98.5)
--- NOTE | 2020-09-20 18:27 | P.PN ---
Subjective Date of Service: 09/20/20 Primary Care Provider: Dr. Mathis Chief Complaint: Respiratory failure Pt still intubated. No acute changes overnight. Review of Systems is unable to be obtained (still intubated) Physical Examination - Vital Signs Temperature: 97.4 F Blood Pressure: 168/74 Pulse: 98 Respirations: 34 Pulse Ox (%): 91 - Physical Exam General: Other (intubtaed) HEENT: Normocephalic, PERRLA Neck: JVD not distended Respiratory: Diminished Cardiovascular: No edema Capillary refill: <2 Seconds Gastrointestinal: Normal bowel sounds, No tenderness Musculoskeletal: No tenderness Integumentary: No rashes - Studies Medications List Reviewed: Yes Assessment & Plan Physician Review Additional Text: Problems Bolton virus CHENG Hypernatremia secondary to free water deficit Hypoxic respiratory failure Hypertension Plan C/w ddavp, agree with Decrease free water flushes to 100cc/4h Further recommendations pending next AM sodium level Strict i/0 Other management per primary team
[2020-09-20] MEDS ORDERED: HYDROMORPHONE HCL 2 MG/ML inj ONE (23:24)
[2020-09-21] MEDS: INSULIN -REGULAR HUMAN 50 UNIT/0.5 ML ML SQ SCH ×5 (02:44→23:33)
[2020-09-21] MEDS: HYDROMORPHONE HCL 2 MG/ML inj IV PRN ×5 (02:50→23:32)
[2020-09-21] MEDS: METOPROLOL TARTRATE 5 MG/5 ML INJ IV PRN (03:07)
[2020-09-21] MEDS ORDERED: METOPROLOL TARTRATE 5 MG/5 ML INJ IV STA ×2 (03:25→03:40)
[2020-09-21 05:57] LABS: Absolute Lymphocytes (CBC) 0.3 K/uL (0.7-4.9); Basophils % 0.1 % (0-1.3); Hematocrit 24.5 % (36.0-45.0); Lymphocytes % 4.8 % (15.3-44.8); MPV 12.1 fL (7.6-11.3); RBC Red Blood Cell Count 2.76 M/uL (3.86-4.86)
[2020-09-21 06:31] LABS: BUN Blood Urea Nitrogen 65 mg/dL (7-18); Bicarbonate 34 mmol/L (21-32); Ferritin 78.3 ng/mL (8-388); Glucose Level 218 mg/dL (74-106); Magnesium 2.2 mg/dL (1.8-2.4); Phosphorus 4.5 mg/dL (2.5-4.9); Potassium 4.7 mmol/L (3.5-5.1); Sodium Level 143 mmol/L (136-145)
[2020-09-21] MEDS: ASCORBIC ACID 500 MG TABLET PO SCH ×2 (08:21→12:29)
[2020-09-21] MEDS: APIXABAN 5 MG TABLET PO SCH (08:21)
[2020-09-21] MEDS: FAMOTIDINE 20 MG TAB PO SCH ×2 (08:21→20:43)
[2020-09-21] MEDS: THIAMINE 200 MG/2 ML INJ IVP SCH ×2 (08:21→20:43)
[2020-09-21] MEDS: FLUCONAZOLE 100 MG TAB PO SCH (08:21)
[2020-09-21] MEDS: VITAMIN D 1000 UNIT TAB PO SCH (08:21)
[2020-09-21] MEDS: ZINC SULFATE 220 MG CAP PO SCH (08:22)
[2020-09-21] MEDS: DESMOPRESSIN 4 MCG/ML AMP SQ SCH ×2 (08:22→20:43)
[2020-09-21] MEDS: METHYLPREDNISOLONE 40 MG INJ IV SCH ×2 (08:22→20:43)
--- NOTE | 2020-09-21 08:56 | RAD REPORT ---
EXAM DESCRIPTION: RAD - Chest Single View - 09/21/2020 5:37 am CLINICAL HISTORY: resp failure Chest pain. COMPARISON: Chest Single View dated 09/20/2020; Chest Single View dated 09/19/2020; Chest Single View da ve[place] 09/18/2020; Chest Single View dated 09/16/2020 FINDINGS: Portable technique limits examination quality. Tip of the endotracheal tube is at the level of the aortic arch. Enteric tube descends into the abdom en. Bibasilar lung opacities, particularly on the right, have mildly worsened since comparative study . Right-sided PICC line has tip in the SVC. Significant subcutaneous emphysema is again seen.Heart si ze is mildly enlarged. IMPRESSION: Mild worsening in bibasilar lung aeration since yesterday's study.
[2020-09-21 08:59] LABS: Platelet Estimate DECR; Platelets, Giant FEW; White Blood Cell Scan OK (OK)
[2020-09-21 09:00] LABS: Blood Morphology Comment NOT SEEN (NOT SEEN)
--- NOTE | 2020-09-21 09:16 | P.PN ---
Date of Service: 09/20/20 Subjective Had a long conversation with family. At this time the 1 continue with current plan of care. Updated him on progressive pneumomediastinum. Patient with persistent confusion. Hemodynamically currently stable. Monitor closely. Prognosis is poor. ENT consulted for possible trach placement Review of Systems is unable to be obtained Physical Examination - Vital Signs Reviewed - Physical Exam General: Other (Intubated and sedated) HEENT: Other (ET tube and NG tube in place) Respiratory: Diminished, Crackles/rales Cardiovascular: Regular rate/rhythm, Normal S1 S2, No murmurs Gastrointestinal: Normal bowel sounds, Soft and benign, Non-distended, No tenderness Musculoskeletal: No clubbing, Swelling Integumentary: Other (With crepitus) Neurological: Other (Difficult to examine. Per nursing staff she does move all her extremities and follows commands once her sedation is weaned down) - Studies Medications List Reviewed: Yes Assessment & Plan - Problems (Diagnosis) (1) Acute respiratory failure due to COVID-19 Current Visit: Yes Status: Acute (2) History of chronic pancreatitis Current Visit: Yes Status: Acute (3) Cirrhosis of liver Current Visit: Yes Status: Chronic Qualifiers: Hepatic cirrhosis type: unspecified hepatic cirrhosis Ascites presence: with ascites Qualified Code(s): K74.60 - Unspecified cirrhosis of liver; R18.8 - Other ascites (4) Hypertension Current Visit: Yes Status: Chronic Qualifiers: Hypertension type: essential hypertension Qualified Code(s): I10 - Essential (primary) hypertension (5) Diabetes Current Visit: No Status: Acute Qualifiers: Diabetes mellitus type: type 2 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 Patient's completed antiviral, Ivermectin, and continues on IV steroids 2. Continue nebs or inhaler therapy as needed 3. Repeat chest x-ray; monitor pneumomediastinum closely 4. Vent management per Pulmonary; may need trach placement 5. Continue with tube feedings 6. Discuss with family regarding code status 7. Monitor inflammatory markers 8. GI and DVT prophylaxis Discharge Plan: Home Plan to discharge in: Greater than 2 days - Advance Directives Does patient have a Living Will: No Does patient have a Durable POA for Healthcare: Yes - Code Status/Comfort Care Code Status: Full Code Critical Care: Yes Time Spent Managing PTS Care (In Minutes): 35
--- NOTE | 2020-09-21 09:18 | P.PN ---
Date of Service: 09/21/20 Subjective Patient remains intubated and sedated. She moves around a little bit. ENT to evaluate for tracheostomy. Review of Systems is unable to be obtained Physical Examination - Vital Signs Reviewed - Physical Exam General: Other (Intubated and sedated) HEENT: Other (ET tube and NG tube in place) Respiratory: Diminished, Crackles/rales Cardiovascular: Regular rate/rhythm, Normal S1 S2, No murmurs Gastrointestinal: Normal bowel sounds, Soft and benign, Non-distended, No tenderness Musculoskeletal: No clubbing, Swelling Integumentary: Other (With crepitus) Neurological: Other (Difficult to examine. Per nursing staff she does move all her extremities and follows commands once her sedation is weaned down) Assessment & Plan - Problems (Diagnosis) (1) Acute respiratory failure due to COVID-19 Current Visit: Yes Status: Acute (2) History of chronic pancreatitis Current Visit: Yes Status: Acute (3) Cirrhosis of liver Current Visit: Yes Status: Chronic Qualifiers: Hepatic cirrhosis type: unspecified hepatic cirrhosis Ascites presence: with ascites Qualified Code(s): K74.60 - Unspecified cirrhosis of liver; R18.8 - Other ascites (4) Hypertension Current Visit: Yes Status: Chronic Qualifiers: Hypertension type: essential hypertension Qualified Code(s): I10 - Essential (primary) hypertension (5) Diabetes Current Visit: No Status: Acute Qualifiers: Diabetes mellitus type: type 2 Diabetes mellitus intermediate insulin use: with intermediate use Diabetes mellitus complication status: without complication Qualified Code(s): E11.9 - Type 2 diabetes mellitus without complications; Z79.4 - ocean transportation intermediary (current) use of insulin (6) Pneumonia due to COVID-19 virus Current Visit: No Status: Acute - Plan Plan: Continue with plan of care as mentioned below 1. Continue with monitoring pneumomediastinum. Progressive worsening of bilateral infiltrates. 2. Continue nebs or inhaler therapy as needed 3. Repeat chest x-ray; monitor pneumomediastinum closely 4. Vent management per Pulmonary; may need trach placement 5. Continue with tube feedings 6. Discuss with family regarding code status 7. Monitor inflammatory markers 8. GI and DVT prophylaxis Discharge Plan: Home Plan to discharge in: Greater than 2 days - Advance Directives Does patient have a Living Will: No Does patient have a Durable POA for Healthcare: Yes - Code Status/Comfort Care Code Status: Full Code Critical Care: Yes Time Spent Managing PTS Care (In Minutes): 35
[2020-09-21] MEDS: INSULIN GLARGINE 100 UNITS/ML SQ SCH ×2 (09:50→20:44)
[2020-09-21] MEDS: METOPROLOL TAR 25 MG TAB PO SCH ×2 (10:30→17:58)
--- NOTE | 2020-09-21 13:02 | P.CNS ---
Date of Consult: 09/21/20 Full details to follow in dictation. Chart reviewed. Spoke with Dr Castro and family (Olimpia, Meseret and Cheyenne) via telephone. Plan trach for SaturdaySeptember 23 TF elective cases. Hold Eliquis starting , hold TF starting at midnight on Saturday.
--- NOTE | 2020-09-21 13:02 | P.PN ---
Subjective Date of Service: 09/27/20 Primary Care Provider: Dr. Mathis Chief Complaint: Respiratory failure No change continues to be agitated requiring sedation with change in oxygen age Physical Examination - Vital Signs Temperature: 97.8 F Blood Pressure: 132/61 Pulse: 72 Respirations: 30 Pulse Ox (%): 93 - Physical Exam General: Unresponsive Neck: Supple Respiratory: Clear to auscultation bilaterally, Diminished Cardiovascular: No edema, Normal S1 S2 - Studies Medications List Reviewed: Yes Assessment & Plan - Problems (Diagnosis) (1) Acute respiratory failure due to severe acute respiratory syndrome coronavirus 2 (SARS-CoV-2) infection Current Visit: Yes Status: Acute Plan: Respiratory failure no change in patient's condition FiO2 requirements around 50% labs reviewed mildly anemic hypernatremia resolved continue with fluid sup plementation
--- NOTE | 2020-09-21 17:31 | CON ---
Date of Consultation: 09/21/2020 Reason For Consultation: Tracheostomy tube placement. History Of Present Illness: Ms. Velsaquez is a 74-year-old woman, who was admitted to the hospital on September 08 with COVID pneumonia, shortness of breath, and hypoxemia. She was initially diagnosed with her COVID on August 06. She was admitted to the hospital overnight with supportive care on August 12 and discharged to home. The patient was brought to the emergency room by EMS with severe hypoxemia with subjective worsening over the week prior to her second admission. She was initially maintained on a BiPAP with oxygen saturation in the 90s. She was noted to have worsening pulmonary findings on her CT scan and new onset of ascites along with a urinary tract infection. She was maintained on BiPAP for about 2 days before being transferred to the ICU and subsequently intubated on September 11 for respiratory failure. Since that time, she has been maintained on the ventilator with oxygen saturations in the low 90s, fractionated oxygen of inspired air around 50% to 60%, and is currently on the PEEP of 10 through her endotracheal tube. Due to her overall favorable ventilator settings and duration of intubation with no clear likelihood of extubation in the near future and the degree of agitation when trying to wean her sedation, the primary team and family have discussed the option of tracheostomy tube. Past Medical History: Includes hypertension, cirrhosis of uncertain stage, chronic pancreatitis, diabetes, recurrent urinary infections. Past Surgical History: Includes appendectomy and tonsillectomy, adenoidectomy, likely in childhood. Allergies: NO KNOWN DRUG ALLERGIES. Family History: Positive for heart disease and hypertension in her mother and an abdominal aortic aneurysm in father. Social History: Nonsmoker. Review of Systems: Unable to obtain. Physical Examination: Deferred. Review Of Data: The patient's chest x-ray personally reviewed by me on September 21, 2020 demonstrates some subcutaneous air as well as findings noted by the radiologist. The patient is anemic with a hemoglobin of 8.2 and platelet count which has been trending down and is currently 70,000. A recent urine culture approximately a week ago demonstrated yeast and the patient is on appropriate medical therapy for that. Her most recent CRP was elevated at 40. Assessment: COVID pneumonia, respiratory failure, prolonged mechanical ventilation, agitation. Plan: I had a detailed discussion with the patient's daughters, Meseret Doan and Cheyenne via conference call, regarding the risks and benefits of tracheostomy tube placement. The main benefits include the potential for ease of weaning due to decreased resistance, a possible decreased need for sedation. The risks were discussed in detail including pain, bleeding, infection, scarring, failure to wean from the ventilator, tracheoinnominate fistula, tracheoesophageal fistula, inability to decannulate, loss of voice or difficulty speaking, scarring, or other damage to the trachea. They agreed to these risks and see benefit for their mother in regard to proceeding with the surgery. We will tentatively plan for the procedure to be performed on Saturday following my elective cases. In preparation for surgery, we will hold the patient's Eliquis starting on morning. We will hold her tube feeds starting at midnight on night. Should there be any significant change in the patient's overall condition including significant increases in her oxygen requirements, PEEP requirements or other significant cardiac events, the surgery may be deferred pending further medical stabilization. I spent over 60 minutes in this consult including detailed review of the medical record, personal conversation with the family and nursing staff, and discussion of risks and benefits, coordination of care with ICU MDs, scheduling of the surgery, and documentation of the care within the medical record. MAURY Voice ID: [id number] Report ID: [id number] HOMERO
[2020-09-22] MEDS: HYDROMORPHONE HCL 2 MG/ML inj IV PRN ×4 (02:25→23:49)
--- NOTE | 2020-09-22 05:14 | EKG ---
Test Date: 2020-09-21 Test Time: 03:23:09 Real Estate Assistant: RT MEASUREMENT RESULTS: Intervals: Rate: 127 MT: QRSD: 88 QT: 308 QTc: 447 Sherwood: P: MT: QRS: -22 T: 73 INTERPRETIVE STATEMENTS: Atrial fibrillation with rapid ventricular response Moderate voltage criteria for LVH, may be normal variant Abnormal ECG Compared to ECG 09/11/2020 08:30:15 Ventricular premature complex(es) no longer present ST (T wave) deviation no longer present Electronically Signed On 09-22-20 05:11:33 SENIOR DIRECTOR OF [employer] by Abhijit Garza
[2020-09-22] MEDS: INSULIN -REGULAR HUMAN 50 UNIT/0.5 ML ML SQ SCH ×3 (06:05→18:12)
[2020-09-22] MEDS: METOPROLOL TAR 25 MG TAB PO SCH ×2 (06:05→17:24)
[2020-09-22] MEDS: LORazepam 2 MG/ML VIAL IV PRN ×5 (06:06→23:49)
--- NOTE | 2020-09-22 06:20 | P.PN ---
Subjective Date of Service: 09/21/20 Primary Care Provider: Dr. Mathis Chief Complaint: Respiratory failure Pt still intubated. No acute changes overnight. Review of Systems is unable to be obtained (due to being intubated) Physical Examination - Vital Signs Temperature: 97.6 F Blood Pressure: 130/58 Pulse: 73 Respirations: 27 Pulse Ox (%): 96 - Physical Exam General: Other (intubated) - Studies Medications List Reviewed: Yes Assessment & Plan Physician Review Additional Text: Problems Bolton virus CHENG Hypernatremia secondary to free water deficit Hypoxic respiratory failure Hypertension Plan C/w ddavp, agree with Continue free water flushes to 100cc/4h Further recommendations pending next AM sodium level Strict i/0 Other management per primary team
[2020-09-22 07:13] LABS: BUN Blood Urea Nitrogen 52 mg/dL (7-18); Bicarbonate 36 mmol/L (21-32); Ferritin 71.7 ng/mL (8-388); Glucose Level 252 mg/dL (74-106); Magnesium 2.4 mg/dL (1.8-2.4); Potassium 4.8 mmol/L (3.5-5.1); Sodium Level 144 mmol/L (136-145)
[2020-09-22 07:21] LABS: Absolute Lymphocytes (CBC) 0.3 K/uL (0.7-4.9); Basophils % 0.2 % (0-1.3); Hematocrit 25.7 % (36.0-45.0); MPV 12.4 fL (7.6-11.3); RBC Red Blood Cell Count 2.85 M/uL (3.86-4.86)
--- NOTE | 2020-09-22 07:26 | RAD REPORT ---
EXAM DESCRIPTION: RAD - Chest Single View - 09/22/2020 6:08 am CLINICAL HISTORY: vented, respiratory distress COMPARISON: September 21 TECHNIQUE: AP portable chest image was obtained 09/22/2020 6:08 woodruff supine positioning . FINDINGS: Motion degradation is present. Tip of the endotracheal tube is mid aortic arch. Feeding tu be extends below the diaphragm. The tip is not visualized. Right-side PICC line remains in place. Bilateral lung parenchymal opacification is still present similar or slightly improved from the prior day study. Progression is not evident. Prominent cardiomediastinal silhouette again noted. Central v asculature is prominent. No pneumothorax or large pleural effusion. Predominately left-sided subcutan eous emphysema has not progressed. IMPRESSION: Bilateral lung parenchymal opacification similar or fractionally improved from prior day imaging. Endotracheal tube remains in good position.
[2020-09-22] MEDS: VITAMIN D 1000 UNIT TAB PO SCH (09:39)
[2020-09-22] MEDS: METHYLPREDNISOLONE 40 MG INJ IV SCH ×2 (09:39→20:12)
[2020-09-22] MEDS: THIAMINE 200 MG/2 ML INJ IVP SCH ×2 (09:39→20:12)
[2020-09-22] MEDS: FAMOTIDINE 20 MG TAB PO SCH ×2 (09:39→20:12)
[2020-09-22] MEDS: FLUCONAZOLE 100 MG TAB PO SCH (09:39)
[2020-09-22] MEDS: DESMOPRESSIN 4 MCG/ML AMP SQ SCH ×2 (09:48→20:13)
[2020-09-22] MEDS: INSULIN GLARGINE 100 UNITS/ML SQ SCH ×2 (09:49→20:14)
[2020-09-22 10:00] LABS: Blood Morphology Comment NOT SEEN (NOT SEEN); Platelet Estimate DECR
--- NOTE | 2020-09-22 12:58 | P.PN ---
Subjective Date of Service: 09/22/20 Primary Care Provider: Dr. Mathis Chief Complaint: Respiratory failure No change continues to be hypoxic agitated schedule for endotracheal tube tomorrow Review of Systems is unable to be obtained Physical Examination - Vital Signs Temperature: 98.8 F Blood Pressure: 155/78 Pulse: 79 Respirations: 30 Pulse Ox (%): 89 - Physical Exam General: Unresponsive Respiratory: Clear to auscultation bilaterally Cardiovascular: No edema, Normal S1 S2 - Studies Medications List Reviewed: Yes Assessment & Plan - Problems (Diagnosis) (1) Acute respiratory failure due to severe acute respiratory syndrome coronavirus 2 (SARS-CoV-2) infection Current Visit: Yes Status: Acute Plan: Respiratory failure no Change schedule for a chest tube tomorrow blood sugars still elevated mildly anemic prognosis poor endotracheal tube satisfactory position evaluate for an LTAC
[2020-09-23] MEDS: INSULIN -REGULAR HUMAN 50 UNIT/0.5 ML ML SQ SCH ×5 (00:18→23:38)
[2020-09-23] MEDS: HYDROMORPHONE HCL 2 MG/ML inj IV PRN ×4 (03:35→20:56)
[2020-09-23] MEDS: LORazepam 2 MG/ML VIAL IV PRN ×4 (03:35→20:56)
[2020-09-23 05:01] LABS: Absolute Lymphocytes (CBC) 0.4 K/uL (0.7-4.9); Basophils % 0.1 % (0-1.3); Hematocrit 24.5 % (36.0-45.0); Lymphocytes % 6.6 % (15.3-44.8); MPV 12.3 fL (7.6-11.3); RBC Red Blood Cell Count 2.74 M/uL (3.86-4.86)
[2020-09-23] MEDS: METOPROLOL TAR 25 MG TAB PO SCH ×2 (05:36→18:47)
[2020-09-23 05:40] LABS: BUN Blood Urea Nitrogen 81 mg/dL (7-18); Bicarbonate 35 mmol/L (21-32); Ferritin 85.5 ng/mL (8-388); Glucose Level 167 mg/dL (74-106); Magnesium 2.3 mg/dL (1.8-2.4); Potassium 4.6 mmol/L (3.5-5.1); Sodium Level 144 mmol/L (136-145)
[2020-09-23] MEDS: THIAMINE 200 MG/2 ML INJ IVP SCH ×2 (08:18→20:21)
[2020-09-23] MEDS: METHYLPREDNISOLONE 40 MG INJ IV SCH ×2 (08:18→20:18)
[2020-09-23] MEDS: DESMOPRESSIN 4 MCG/ML AMP SQ SCH ×2 (08:20→20:18)
[2020-09-23] MEDS: FAMOTIDINE 20 MG TAB PO SCH ×2 (08:21→20:18)
[2020-09-23] MEDS: FLUCONAZOLE 100 MG TAB PO SCH (08:21)
[2020-09-23] MEDS: VITAMIN D 1000 UNIT TAB PO SCH (08:21)
[2020-09-23] MEDS: INSULIN GLARGINE 100 UNITS/ML SQ SCH ×3 (08:21→23:30)
--- NOTE | 2020-09-23 10:00 | P.PN ---
Date of Service: 09/22/20 Subjective Clinically no significant changes. Remains hypoxic; strict BP and BS control; Poor prognosis Review of Systems is unable to be obtained Physical Examination - Vital Signs Reviewed - Physical Exam General: Other (Intubated and sedated) HEENT: Other (ET tube and NG tube in place) Respiratory: Diminished, Crackles/rales Cardiovascular: Regular rate/rhythm, Normal S1 S2, No murmurs Musculoskeletal: No clubbing, Swelling Integumentary: Other (With crepitus) Neurological: Other (Difficult to examine) Assessment & Plan - Problems (Diagnosis) (1) Acute respiratory failure due to COVID-19 Current Visit: Yes Status: Acute (2) History of chronic pancreatitis Current Visit: Yes Status: Acute (3) Cirrhosis of liver Current Visit: Yes Status: Chronic Qualifiers: Hepatic cirrhosis type: unspecified hepatic cirrhosis Ascites presence: with ascites Qualified Code(s): K74.60 - Unspecified cirrhosis of liver; R18.8 - Other ascites (4) Hypertension Current Visit: Yes Status: Chronic Qualifiers: Hypertension type: essential hypertension Qualified Code(s): I10 - Essential (primary) hypertension (5) Diabetes Current Visit: No Status: Acute Qualifiers: Diabetes mellitus type: type 2 Diabetes mellitus joint terminal attack controller insulin use: with long-term use Diabetes mellitus complication status: without complication Qualified Code(s): E11.9 - Type 2 diabetes mellitus without complications; Z79.4 - half-way (current) use of insulin (6) Pneumonia due to COVID-19 virus Current Visit: No Status: Acute - Plan Plan: Continue with plan of care as mentioned below 1. Continue with monitoring pneumomediastinum. CXR with improvement 2. Continue nebs or inhaler therapy as needed 3. Repeat chest x-ray; in 48hrs 4. Vent management per Pulmonary; trach placement in AM per Dr. Rincon 5. Continue with tube feedings 6. Discuss with family regarding code status 7. Monitor inflammatory markers 8. GI and DVT prophylaxis Discharge Plan: Home Plan to discharge in: Greater than 2 days - Advance Directives Does patient have a Living Will: No Does patient have a Durable POA for Healthcare: Yes - Code Status/Comfort Care Code Status: Full Code Critical Care: Yes Time Spent Managing PTS Care (In Minutes): 35
[2020-09-23] MEDS: LIDOCAINE 1% W/EPI 1:100,000 MDV 20 ML VIAL ONE ×2 (11:10→12:56)
[2020-09-23] MEDS ORDERED: propofoL 200 MG/20 ML VIAL IV ONE (12:06)
[2020-09-23] MEDS ORDERED: MIDAZOLAM HCL 2 MG/2 ML INJ ONE (12:06)
[2020-09-23] MEDS ORDERED: FENTANYL CITR 100 MCG/2 ML ONE (12:06)
[2020-09-23] MEDS ORDERED: LIDOCAINE 2% MPF 5 ML VIAL ONE (12:07)
[2020-09-23] MEDS ORDERED: ONDANSETRON 4 MG/2 ML VIAL ONE (12:08)
[2020-09-23] MEDS ORDERED: Phenylephrine HCl 10 MG/ML 1 ML VIAL ONE (12:10)
[2020-09-23] MEDS ORDERED: EPHEDRINE SULF 50 MG/ML VIAL ONE (12:11)
[2020-09-23] MEDS ORDERED: CISATRACURIUM INJECTION 2 MG/ML (10 ML Vial) IV ONE ×2 (12:15→13:33)
[2020-09-23] MEDS ORDERED: SUCCINYLCHOLINE 20 MG/ML (10 ML) IV ONE (12:15)
[2020-09-23] MEDS ORDERED: NS 0.9% VIAL 20 ML ONE (12:17)
[2020-09-23] MEDS ORDERED: NA CHLORIDE 0.9% 500 ML ONE ×2 (12:21→12:26)
[2020-09-23 12:33] LABS: Hematocrit 31.2 % (36.0-45.0)
--- NOTE | 2020-09-23 13:32 | P.BOP ---
Preoperative diagnosis: prolonged mech ventilation, COVID PNA Postoperative diagnosis: same Primary procedure: tracheotomy Thermostatic Controls Supervisor: ESME ULLOA Estimated blood loss: <5ml Specimen: none Findings: routine findings, trach incision between 2nd and 3rd ring Anesthesia: General Complications: None Implants: 6 CHAIN FORMING MACHINE OPERATOR Shiley Transferred to: ICU Condition: Serious
[2020-09-23] MEDS: VITAL HP 1,000 ML BOT RTH SCH (14:30)
--- NOTE | 2020-09-23 15:51 | OP ---
Surgeon: Belgica Rincon MD Oyster Bed Worker: Martha Sahni. Preoperative Diagnoses: Dependence on respiratory ventilator, COVID-19, pneumonia due to other virus and acute respiratory distress syndrome. Postoperative Diagnoses: Dependence on respiratory ventilator, COVID-19, pneumonia due to other viru s and acute respiratory distress syndrome. Procedure Performed: Tracheostomy. Indication For Procedure: Ms. Velasquez was diagnosed in late July with COVID-19. She presented in august with worsening respiratory status and was hospitalized. She was subsequently transferred to the ICU and intubated. She has been on the ventilator for 13 days and due to failure to wean, re commendation was made to proceed with tracheostomy. Her daughters agreed with the planned procedure expressing understanding of the risks and benefits. Estimated Blood Loss: Less than 5 mL. Implants: A 6.0 HARNESS INSTALLER Shiley tracheostomy tube. Description Of Procedure: The patient was brought to the operating room. She was placed under gener al anesthesia via existing endotracheal tube. She was positioned in a supine fashion with a shoulder roll and extension of the neck giving adequate exposure to the anterior neck. The laryngeal landmar ks were easily palpated including the sternal notch, the cricoid cartilage, the thyroid cartilage and thyroid notch. The patient's neck was noted to have a prominent dilated vessel of the anterior righ t neck and care was made to avoid this area during the procedure. The planned incision site was inje cted with 1% lidocaine with epinephrine. The skin was prepped in a sterile fashion using Betadine an d draped in a routine manner. The time-out was called confirming the patient's identity, diagnosis, and planned procedure. All present agreed. The patient did not require any additional antibiotics o ther than what she was already receiving through the ICU care. A 1.5 cm incision was made through th e skin and subcutaneous tissue. The subcutaneous fat was grasped and a Bovie electrocautery was used to perform a cervical lipectomy in order to facilitate the placement of the tube in case of accident al decannulation. The fat was discarded. The strap muscles were then identified in the midline. Th e linea alba was divided and the strap muscles were retracted laterally. The pretracheal fascia was then identified and the wall of the trachea was isolated. The cricoid; first, second and third trach eal rings were easily identifiable. A brief time-out was then called to ensure adequate communicatio n amongst all the surgical team. Once everyone was ready, the ventilation was held. A 15 blade scal pel was used to make an incision between the second and third tracheal ring. Curved scissors were us ed to enlarge the tracheostomy incision and a trach home hospice rn was used to provide visualization. The in situ endotracheal tube was partially withdrawn until its tip was barely visible within the incisio n. A 6.0 HARNESS INSTALLER Shiley tracheostomy tube was then placed without difficulty into the trachea. The obtu rator was removed. The inner cannula was placed. The balloon cuff was inflated and the tube was con nected to the anesthesia circuit. The respirations were then resumed. The patient's oxygen saturati on began to rise from the mid 80s back up into her baseline of low 90s. The tracheostomy tube was se cured in a four-point fashion to the skin using 2-0 silk sutures. The umbilical tie was applied arou nd the neck for further securing of the tracheostomy tube. The patient's skin was cleaned and dried. She was transported back to her ICU bed and transported to the ICU in stable condition. Disposition: The patient will continue critical care management and mechanical ventilation under the direction of the primary team. Should any bleeding or other concerns occur, please contact Dr. Herr rodriguez immediately. The patient can resume her blood thinners and tube feeds without further restrictio n when deemed necessary by the primary team. VIRGINIE/CIELO Voice ID: [id number] Report ID: [id number]
--- NOTE | 2020-09-23 19:18 | RAD REPORT ---
EXAM DESCRIPTION: Marti Single View09/23/2020 6:55 pm CLINICAL HISTORY: Shortness of breath COMPARISON: September FINDINGS: Tracheostomy tube in place Minimal improvement in the bilateral pulmonary opacities. Improvement in the subcutaneous emphysema. Feeding tube near the junction of the gastric fundus and body
[2020-09-23] MEDS: APIXABAN 5 MG TABLET PO SCH (20:18)
[2020-09-24] MEDS: HYDROMORPHONE HCL 2 MG/ML inj IV PRN ×5 (01:47→20:03)
[2020-09-24] MEDS: LORazepam 2 MG/ML VIAL IV PRN ×5 (01:47→20:04)
[2020-09-24 05:35] LABS: Absolute Lymphocytes (CBC) 0.4 K/uL (0.7-4.9); Basophils % 0.2 % (0-1.3); Hematocrit 22.7 % (36.0-45.0); Lymphocytes % 8.9 % (15.3-44.8); MPV 12.3 fL (7.6-11.3); RBC Red Blood Cell Count 2.49 M/uL (3.86-4.86)
[2020-09-24] MEDS: METOPROLOL TAR 25 MG TAB PO SCH ×2 (06:11→17:43)
[2020-09-24 06:15] LABS: Ferritin 117.2 ng/mL (8-388); Magnesium 2.2 mg/dL (1.8-2.4); Potassium 4.6 mmol/L (3.5-5.1)
[2020-09-24] MEDS: INSULIN -REGULAR HUMAN 50 UNIT/0.5 ML ML SQ SCH ×3 (06:21→17:43)
--- NOTE | 2020-09-24 06:39 | P.PN ---
Subjective Date of Service: 09/23/20 Primary Care Provider: Dr. Mathis Chief Complaint: Respiratory failure Pt still intubated. No acute changes overnight. Review of Systems is unable to be obtained (due to intubation) Physical Examination - Vital Signs Temperature: 97.2 F Blood Pressure: 117/45 Pulse: 74 Respirations: 25 Pulse Ox (%): 100 - Physical Exam General: Other (Intubated, ) HEENT: Atraumatic, PERRLA, EOMI Neck: Supple, JVD not distended Respiratory: Diminished Cardiovascular: Regular rate/rhythm, Normal S1 S2 Capillary refill: <2 Seconds Gastrointestinal: Normal bowel sounds, No tenderness Musculoskeletal: Other (sedated) Integumentary: No rashes Urinary: Dialysis catheter - Studies Medications List Reviewed: Yes Assessment & Plan Physician Review Additional Text: Problems Bolton virus CHENG Hypernatremia secondary to free water deficit Hypoxic respiratory failure Hypertension Plan C/w ddavp. Continue free water flushes to 100cc/4h Further recommendations pending next AM sodium level Strict i/0 Other management per primary team
[2020-09-24] MEDS: VITAMIN D 1000 UNIT TAB PO SCH (08:27)
[2020-09-24] MEDS: METHYLPREDNISOLONE 40 MG INJ IV SCH ×2 (08:27→20:01)
[2020-09-24] MEDS: APIXABAN 5 MG TABLET PO SCH ×3 (08:27→20:01)
[2020-09-24] MEDS: FAMOTIDINE 20 MG TAB PO SCH ×2 (08:27→20:00)
[2020-09-24] MEDS: FLUCONAZOLE 100 MG TAB PO SCH (08:27)
[2020-09-24] MEDS: THIAMINE 200 MG/2 ML INJ IVP SCH ×2 (08:28→20:01)
[2020-09-24] MEDS: INSULIN GLARGINE 100 UNITS/ML SQ SCH ×2 (08:29→20:04)
[2020-09-24] MEDS: DESMOPRESSIN 4 MCG/ML AMP SQ SCH ×2 (08:29→20:03)
[2020-09-24] MEDS ORDERED: NA CHLORIDE 0.9% 250 ML ONE (10:19)
--- NOTE | 2020-09-24 10:29 | P.PN ---
Date of Service: 09/23/20 Subjective s/p trach; worsening hypoxemia; FiO2 @ 100% Review of Systems is unable to be obtained Physical Examination - Vital Signs Reviewed - Physical Exam General: Other (Intubated and sedated) HEENT: Other (ET tube and NG tube in place) Respiratory: Diminished, Crackles/rales Cardiovascular: Regular rate/rhythm, Normal S1 S2, No murmurs Musculoskeletal: No clubbing, Swelling Integumentary: Other (With crepitus) Neurological: Other (Difficult to examine) Assessment & Plan - Problems (Diagnosis) (1) Acute respiratory failure due to COVID-19 Current Visit: Yes Status: Acute (2) History of chronic pancreatitis Current Visit: Yes Status: Acute (3) Cirrhosis of liver Current Visit: Yes Status: Chronic Hepatic cirrhosis type: unspecified hepatic cirrhosis Ascites presence: with ascites Qualified Code(s): K74.60 - Unspecified cirrhosis of liver; R18.8 - Other ascites (4) Hypertension Current Visit: Yes Status: Chronic Hypertension type: essential hypertension Qualified Code(s): I10 - Essential (primary) hypertension (5) Diabetes Current Visit: No Status: Acute Diabetes mellitus type: type 2 Diabetes mellitus intermodal dispatcher insulin use: with chcf use Diabetes mellitus complication status: without complication Qualified Code(s): E11.9 - Type 2 diabetes mellitus without complications; Z79.4 - buttermilk drier operator (current) use of insulin (6) Pneumonia due to COVID-19 virus Current Visit: No Status: Acute - Plan Plan: Continue with plan of care as mentioned below 1. Continue with monitoring pneumomediastinum. CXR with improvement 2. Continue nebs or inhaler therapy as needed 3. Repeat chest x-ray; in 48hrs 4. Vent management per Pulmonary; trach placement in AM per Dr. Rincon 5. Continue with tube feedings 6. Discuss with family regarding code status 7. Monitor inflammatory markers 8. GI and DVT prophylaxis Discharge Plan: Home Plan to discharge in: Greater than 2 days - Advance Directives Does patient have a Living Will: No Does patient have a Durable POA for Healthcare: Yes - Code Status/Comfort Care Code Status: Full Code Critical Care: Yes Time Spent Managing PTS Care (In Minutes): 35
--- NOTE | 2020-09-24 10:32 | P.PN ---
Date of Service: 09/24/20 Subjective Patient clinically has not had any significant changes. Wean down the oxygenation. Chest x-ray with no significant changes. Inflammatory markers - CRP -has been increasing. We will monitor this closely. Dobhoff pending Review of Systems is unable to be obtained Physical Examination - Vital Signs Reviewed - Physical Exam General: Other (Intubated and sedated) HEENT: Other (ET tube and NG tube in place) Respiratory: Diminished, Crackles/rales Cardiovascular: Regular rate/rhythm, Normal S1 S2, No murmurs Musculoskeletal: No clubbing, Swelling Integumentary: Other (With crepitus) Neurological: Other (Difficult to examine) Assessment & Plan - Problems (Diagnosis) (1) Acute respiratory failure due to COVID-19 Current Visit: Yes Status: Acute (2) History of chronic pancreatitis Current Visit: Yes Status: Acute (3) Cirrhosis of liver Current Visit: Yes Status: Chronic Hepatic cirrhosis type: unspecified hepatic cirrhosis Ascites presence: with ascites Qualified Code(s): K74.60 - Unspecified cirrhosis of liver; R18.8 - Other ascites (4) Hypertension Current Visit: Yes Status: Chronic Hypertension type: essential hypertension Qualified Code(s): I10 - Essential (primary) hypertension (5) Diabetes Current Visit: No Status: Acute Diabetes mellitus type: type 2 Diabetes mellitus long-term insulin use: with long-term use Diabetes mellitus complication status: without complication Qualified Code(s): E11.9 - Type 2 diabetes mellitus without complications; Z79.4 - joint terminal attack controller (current) use of insulin (6) Pneumonia due to COVID-19 virus Current Visit: No Status: Acute - Plan Plan: Continue with plan of care as mentioned below: 1. Oxygenation improved; 2. Continue nebs or inhaler therapy as needed 3. Repeat chest x-ray; in 48hrs 4. Vent management per Pulmonary; s/p trach placement 5. Continue with tube feedings 6. Pt is a full code 7. Monitor inflammatory markers 8. GI and DVT prophylaxis Discharge Plan: Home Plan to discharge in: Greater than 2 days - Advance Directives Does patient have a Living Will: No Does patient have a Durable POA for Healthcare: Yes - Code Status/Comfort Care Code Status: Full Code Critical Care: Yes Time Spent Managing PTS Care (In Minutes): 35
--- NOTE | 2020-09-24 10:33 | P.PN ---
Subjective Date of Service: 09/24/20 Primary Care Provider: Dr. Mathis Chief Complaint: Respiratory failure Status post trach condition stable oxygenation satisfactory patient is a little anemic Review of Systems is unable to be obtained Physical Examination - Vital Signs Temperature: 99.0 F Blood Pressure: 152/60 Pulse: 74 Respirations: 30 Pulse Ox (%): 95 - Physical Exam General: Unresponsive Respiratory: Clear to auscultation bilaterally, Diminished Cardiovascular: No edema, Regular rate/rhythm - Studies Medications List Reviewed: Yes Assessment & Plan - Problems (Diagnosis) (1) Acute respiratory failure due to severe acute respiratory syndrome coronavirus 2 (SARS-CoV-2) infection Current Visit: Yes Status: Acute Plan: Status post trach patient's condition is stable this to SIMV and pressure support chest x-ray shows some interstitial change sodium has been corrected continue with does more breast stable for transfer to an LTAC unit resume tube feeds chest x-ray reviewed labs reviewed discuss with the nursing staff and res piratory therapy
[2020-09-24 15:57] LABS: Hematocrit 27.1 % (36.0-45.0)
[2020-09-24] MEDS ORDERED: FENTANYL CITR 100 MCG/2 ML IV PRN (16:42)
[2020-09-25] MEDS: LORazepam 2 MG/ML VIAL IV PRN ×6 (00:18→23:08)
[2020-09-25] MEDS: HYDROMORPHONE HCL 2 MG/ML inj IV PRN ×6 (00:20→23:07)
[2020-09-25] MEDS: INSULIN -REGULAR HUMAN 50 UNIT/0.5 ML ML SQ SCH ×5 (06:00→23:08)
[2020-09-25] MEDS: METOPROLOL TAR 25 MG TAB PO SCH ×2 (06:03→17:20)
[2020-09-25 06:13] LABS: Arterial Blood Carboxyhemoglob 1.9 % (0-1.5); Blood Gas Oxyhemoglobin 91.3 % (94-97); Blood O2 Saturation 93.5 % (92-98.5)
[2020-09-25 07:11] LABS: ALT/SGPT 28 U/L (12-78); AST/SGOT 13 U/L (15-37); Albumin 1.5 g/dL (3.4-5.0); Alkaline Phosphatase 97 U/L (45-117); BUN Blood Urea Nitrogen 78 mg/dL (7-18); Bicarbonate 34 mmol/L (21-32); Bilirubin Total 0.7 mg/dL (0.2-1.0); Ferritin 111.2 ng/mL (8-388); Glucose Level 158 mg/dL (74-106); Magnesium 2.3 mg/dL (1.8-2.4); Phosphorus 3.2 mg/dL (2.5-4.9); Potassium 4.3 mmol/L (3.5-5.1); Protein, Total 5.1 g/dL (6.4-8.2); Sodium Level 146 mmol/L (136-145)
[2020-09-25] MEDS: METHYLPREDNISOLONE 40 MG INJ IV SCH ×2 (08:36→20:05)
[2020-09-25] MEDS: INSULIN GLARGINE 100 UNITS/ML SQ SCH ×2 (08:36→20:05)
[2020-09-25] MEDS: FAMOTIDINE 20 MG TAB PO SCH ×2 (08:36→20:05)
[2020-09-25] MEDS: FLUCONAZOLE 100 MG TAB PO SCH (08:36)
[2020-09-25] MEDS: VITAMIN D 1000 UNIT TAB PO SCH (08:36)
[2020-09-25] MEDS: THIAMINE 200 MG/2 ML INJ IVP SCH ×2 (08:37→20:05)
[2020-09-25] MEDS: APIXABAN 5 MG TABLET PO SCH ×2 (08:37→20:05)
[2020-09-25] MEDS: DESMOPRESSIN 4 MCG/ML AMP SQ SCH ×2 (08:40→20:06)
--- NOTE | 2020-09-25 08:42 | RAD REPORT ---
EXAM DESCRIPTION: RAD - Chest Single View - 09/25/2020 4:07 am CLINICAL HISTORY: covid pna COMPARISON: Portable September 23 TECHNIQUE: AP portable chest image was obtained 09/25/2020 4:07 am . FINDINGS: No change in positioning of the trach tube. Feeding tube tip is in the proximal stomach. N o change to the right upper extremity PICC line. Dense left base opacification is present obscuring the left hemidiaphragm. Interstitial and alveolar opacities are scattered in both lung campos. The lung parenchymal pattern is stable. Heart and vasculature are normal. No new or enlarging pneumothorax. No enlarging pleural effusion. N o progression of subcutaneous emphysema. IMPRESSION: Bilateral lung parenchymal opacification, worse in the left lung base, is stable from pr ior day imaging. No new or progressive findings.
--- NOTE | 2020-09-25 10:19 | RAD REPORT ---
EXAM DESCRIPTION: RAD - Abdomen 1 View (KUB) - 09/25/2020 10:08 am CLINICAL HISTORY: Dobhoff reinsertion COMPARISON: Abdomen 1 View (KUB) dated 09/25/2020 FINDINGS: Feeding tube has been advanced further into the stomach compared to the earlier examinatio n. Tip is in the proximal portion of the decompressed stomach. No abnormal bend or kink of the tubing . Tube is well below the GE junction. IMPRESSION: Feeding tube has been advanced further into the stomach and is now in the proximal body.
[2020-09-25 11:15] LABS: Absolute Lymphocytes (CBC) 0.2 K/uL (0.7-4.9); Basophils % 0.1 % (0-1.3); Hematocrit 29.2 % (36.0-45.0); MPV 11.9 fL (7.6-11.3); RBC Red Blood Cell Count 3.25 M/uL (3.86-4.86)
[2020-09-25] MEDS: Levofloxacin500mg IV 500 MG/100 ML BAG IV SCH (14:54)
[2020-09-25] MEDS: MORPHINE 2 MG/ML SYR IV PRN (15:45)
[2020-09-25] MEDS ORDERED: CEFTRIAXONE 1 GM/NS 50 ML 1 GM/50 ML BAG IV SCH (21:00)
[2020-09-26] MEDS: LORazepam 2 MG/ML VIAL IV PRN ×5 (03:04→20:48)
[2020-09-26] MEDS: HYDROMORPHONE HCL 2 MG/ML inj IV PRN ×5 (03:04→20:48)
[2020-09-26] MEDS: METOPROLOL TAR 25 MG TAB PO SCH ×2 (06:47→18:14)
[2020-09-26] MEDS: INSULIN -REGULAR HUMAN 50 UNIT/0.5 ML ML SQ SCH ×4 (06:48→23:56)
[2020-09-26 06:51] LABS: ALT/SGPT 27 U/L (12-78); AST/SGOT 19 U/L (15-37); Albumin 1.5 g/dL (3.4-5.0); Alkaline Phosphatase 115 U/L (45-117); BUN Blood Urea Nitrogen 62 mg/dL (7-18); Bicarbonate 33 mmol/L (21-32); Bilirubin Total 0.7 mg/dL (0.2-1.0); Ferritin 121.9 ng/mL (8-388); Glucose Level 259 mg/dL (74-106); Magnesium 2.2 mg/dL (1.8-2.4); Phosphorus 3.5 mg/dL (2.5-4.9); Potassium 4.7 mmol/L (3.5-5.1); Protein, Total 5.2 g/dL (6.4-8.2); Sodium Level 144 mmol/L (136-145)
--- NOTE | 2020-09-26 07:05 | P.PN ---
Date of Service: 09/25/20 Subjective family at bedside. They understand her prognosis is poor. Still hopeful that she will improve. continuing to try to wean off the ventilator. Tracheostomy is in place. Once patient is under 50% on FiO2 then may believe we can get transfer to LTAC facility. Review of Systems is unable to be obtained Physical Examination - Vital Signs Reviewed - Physical Exam General: Other (Intubated and sedated) HEENT: Other (ET tube and NG tube in place) Respiratory: Diminished, Crackles/rales Cardiovascular: Regular rate/rhythm, Normal S1 S2, No murmurs Musculoskeletal: No clubbing, Swelling Integumentary: Other (With crepitus) Neurological: Other (Difficult to examine. not really following commands at this time) Assessment & Plan - Problems (Diagnosis) (1) Acute respiratory failure due to COVID-19 Current Visit: Yes Status: Acute (2) History of chronic pancreatitis Current Visit: Yes Status: Acute (3) Cirrhosis of liver Current Visit: Yes Status: Chronic Hepatic cirrhosis type: unspecified hepatic cirrhosis Ascites presence: with ascites Qualified Code(s): K74.60 - Unspecified cirrhosis of liver; R18.8 - Other ascites (4) Hypertension Current Visit: Yes Status: Chronic Hypertension type: essential hypertension Qualified Code(s): I10 - Essential (primary) hypertension (5) Diabetes Current Visit: No Status: Acute Diabetes mellitus type: type 2 Diabetes mellitus fpc insulin use: with fpc use Diabetes mellitus complication status: without complication Qualified Code(s): E11.9 - Type 2 diabetes mellitus without complications; Z79.4 - emt intermediate (current) use of insulin (6) Pneumonia due to COVID-19 virus Current Visit: No Status: Acute - Plan Plan: Continue with plan of care as mentioned below: 1. Oxygenation improved; Continue gradually weaning down FiO2 on mechanical ventilation 2. Continue nebs or inhaler therapy as needed 3. Repeat chest x-ray; in 48hrs 4. Vent management per Pulmonary; s/p trach placement 5. Continue with tube feedings 6. Pt is a full code 7. Monitor inflammatory markers 8. GI and DVT prophylaxis Discharge Plan: Home Plan to discharge in: Greater than 2 days - Advance Directives Does patient have a Living Will: No Does patient have a Durable POA for Healthcare: Yes - Code Status/Comfort Care Code Status: Full Code Critical Care: Yes Time Spent Managing PTS Care (In Minutes): 35
[2020-09-26] MEDS: VITAMIN D 1000 UNIT TAB PO SCH (08:23)
[2020-09-26] MEDS: FAMOTIDINE 20 MG TAB PO SCH ×2 (08:23→20:25)
[2020-09-26] MEDS: FLUCONAZOLE 100 MG TAB PO SCH (08:23)
[2020-09-26] MEDS: DESMOPRESSIN 4 MCG/ML AMP SQ SCH ×2 (08:24→20:26)
[2020-09-26] MEDS: THIAMINE 200 MG/2 ML INJ IVP SCH ×2 (08:24→20:26)
[2020-09-26] MEDS: APIXABAN 5 MG TABLET PO SCH ×2 (08:24→20:25)
[2020-09-26] MEDS: INSULIN GLARGINE 100 UNITS/ML SQ SCH ×2 (08:25→20:26)
--- NOTE | 2020-09-26 10:41 | P.PN ---
Subjective Date of Service: 09/26/20 Primary Care Provider: Dr. Mathis Chief Complaint: Respiratory failure Subjective: Other (Patient receiving some sedation medication. Remained stable on ventilator. Had tracheostomy done Saturday.) Physical Examination - Vital Signs Temperature: 98.0 F Blood Pressure: 134/64 Pulse: 80 Respirations: 26 Pulse Ox (%): 96 - Studies Medications List Reviewed: Yes Assessment & Plan Discharge Plan: LTAC Plan to discharge in: Greater than 2 days Physician Review Additional Text: Physical exam: Patient remains intubated and sedated. Tracheostomy done on Saturday. On 65% Fi02. Neck: Tracheostomy in place. Some serous drainage noted from the tracheostomy. No significant erythema. Heart: Regular rate Lungs: Patient on ventilator. FiO2 at 65% Abdomen: Soft Extremities: No focal deficits Impression: Dyspnea secondary to acute respiratory failure with acute respiratory syndrome r elated to bilateral COVID 19 pneumonia status post tracheostomy 09/23 Diabetes mellitus type 2 with hyperglycemia Hypertension Anemia of chronic disease Atrial fibrillation paroxysmal UTI, urine culture positive for Enterococcus Acute renal insufficiency with hypernatremia Thrombocytopenia likely inflammatory Plan: Dyspnea secondary to acute respiratory failure with acute respiratory syndrome related to bilateral COVID 19 pneumonia status post tracheostomy 09/23: Patient remains intubated and sedated. Some serous drainage noted new the tracheostomy site. No erythema noted. On IV antibiotic therapy-Levaquin and IV antifungal- Diflucan. Culture obtained. Will discuss with ENT. Patient remains on supplementation. No longer on IV steroids. Continue to wean off oxygen. Will discuss with pulmonology. Continue with water flushes. Will discuss with family about long-term acute care facility placement and readdress advanced directives. Diabetes mellitus type 2 with hyperglycemia: Continue to adjust medication for better control. Continue to adjust Lantus for better control. Patient no longer on D5W. Continue Accu-Cheks and sliding scale. Hypertension: Patient remains in normal rhythm. Will provide metoprolol as needed. Anemia of chronic disease: Will monitor closely. Atrial fibrillation paroxysmall: No further AFib noted. Patient remains in normal rhythm. Patient remains on metoprolol. UTI, urine culture positive for Enterococcus: Patient finish course of medication. Continue with Diflucan. Acute renal insufficiency with hypernatremia: Water flushes in place. Renal function stable. Hypernatremia resolved. Thrombocytopenia likely inflammatory: Continue to monitor closely. Time Spent Managing Pts Care (In Minutes): 55
--- NOTE | 2020-09-26 12:51 | P.PN ---
Subjective Date of Service: 09/26/20 Primary Care Provider: Dr. Mathis Chief Complaint: Respiratory failure No change patient continues to remain unresponsive saunders requirements have improved Review of Systems is unable to be obtained Physical Examination - Vital Signs Temperature: 98.0 F Blood Pressure: 134/64 Pulse: 80 Respirations: 26 Pulse Ox (%): 96 - Physical Exam General: Unresponsive Respiratory: Clear to auscultation bilaterally Cardiovascular: Normal S1 S2, Edema - Studies Medications List Reviewed: Yes Assessment & Plan - Problems (Diagnosis) (1) Acute respiratory failure due to severe acute respiratory syndrome coronavirus 2 (SARS-CoV-2) infection Current Visit: Yes Status: Acute Plan: Respiratory failure unresponsive will need a CT scan of the head renal function has improved hypernatremia has resolved she is on 70% FiO2 blood pressure is stable Staphylococcus aureus isolated from the sputum will repeat the sputum cultures again
--- NOTE | 2020-09-26 14:02 | RAD REPORT ---
EXAM DESCRIPTION: RAD - Abdomen 1 View (KUB) - 09/25/2020 4:05 am CLINICAL HISTORY: The patient is 74 years old and is Female; DOBHOFF PLACEMENT CHECK TECHNIQUE: Frontal supine view of the abdomen/pelvis. COMPARISON: No relevant prior studies available. FINDINGS: Gastrointestinal tract: Unremarkable. No dilation. Bones/joints: Unremarkable. Tubes, lines and devices: Nasogastric tube coursing below the diaphragm with tip in the left uppe r quadrant likely just below the GE junction. IMPRESSION: Nasogastric tube coursing below the diaphragm with tip in the left upper quadrant likely just below the GE junction. Electronically signed by: Eligio Castro MD 09/25/2020 5:27 AM CDT Due to temporary technical issues with the PACS/Fluency reporting system, reports are being signed by the in house radiologists without review as a courtesy to insure prompt reporting. The interpreting radiologist is fully responsible for the content of the report.
[2020-09-26] MEDS: Levofloxacin500mg IV 500 MG/100 ML BAG IV SCH (15:11)
--- NOTE | 2020-09-26 18:09 | RAD REPORT ---
EXAM DESCRIPTION: CT - Head Brain W/Wo Con - 09/26/2020 5:05 pm CLINICAL HISTORY: Stroke-like symptoms COMPARISON: None. TECHNIQUE: Computed axial tomography of the head was obtained. Unenhanced and enhanced images obtain ed. 50 cc Isovue-[address] scans are performed using dose optimization technique as appropriate and may include automated exposure control or mA/KV adjustment according to patient size. FINDINGS: An intracranial bleed is not seen . The ventricles are normal in caliber. No extra-axial fluid collection is noted. No abnormal enhancement seen mild low-density areas within periventricular, and subcortical white mat ter probably ischemic changes secondary small vessel disease IMPRESSION: No acute intracranial abnormality is seen.
[2020-09-26] MEDS: METHYLPREDNISOLONE 40 MG INJ IV SCH (20:25)
[2020-09-27] MEDS: LORazepam 2 MG/ML VIAL IV PRN ×2 (01:12→05:39)
[2020-09-27] MEDS: HYDROMORPHONE HCL 2 MG/ML inj IV PRN ×4 (01:12→17:01)
[2020-09-27] MEDS: METOPROLOL TAR 25 MG TAB PO SCH ×2 (05:16→18:00)
[2020-09-27] MEDS: INSULIN -REGULAR HUMAN 50 UNIT/0.5 ML ML SQ SCH ×3 (05:16→18:00)
[2020-09-27 05:19] LABS: Absolute Lymphocytes (CBC) 0.3 K/uL (0.7-4.9); Basophils % 0.1 % (0-1.3); Hematocrit 24.9 % (36.0-45.0); Lymphocytes % 7.2 % (15.3-44.8); MPV 11.4 fL (7.6-11.3); RBC Red Blood Cell Count 2.77 M/uL (3.86-4.86)
[2020-09-27 05:53] LABS: BUN Blood Urea Nitrogen 56 mg/dL (7-18); Bicarbonate 35 mmol/L (21-32); Ferritin 127.1 ng/mL (8-388); Glucose Level 236 mg/dL (74-106); Magnesium 2.2 mg/dL (1.8-2.4); Potassium 4.5 mmol/L (3.5-5.1); Sodium Level 145 mmol/L (136-145)
--- NOTE | 2020-09-27 08:07 | RAD REPORT ---
EXAM DESCRIPTION: Marti Single View09/27/2020 5:58 am CLINICAL HISTORY: Pneumonia COMPARISON: September 25 2020 FINDINGS: Improvement in subcutaneous emphysema. Tracheostomy tube in place. PICC line with tip in the superior vena cava. No significant change in bilateral pulmonary opacities. Heart is probably mildly enlarged IMPRESSION: No significant change in the bilateral pulmonary opacities
[2020-09-27] MEDS: FLUCONAZOLE 100 MG TAB PO SCH (08:19)
[2020-09-27] MEDS: VITAMIN D 1000 UNIT TAB PO SCH (08:19)
[2020-09-27] MEDS: FAMOTIDINE 20 MG TAB PO SCH ×2 (08:19→21:52)
[2020-09-27] MEDS: APIXABAN 5 MG TABLET PO SCH ×2 (08:20→21:52)
[2020-09-27] MEDS: DESMOPRESSIN 4 MCG/ML AMP SQ SCH ×2 (08:20→21:00)
[2020-09-27] MEDS: THIAMINE 200 MG/2 ML INJ IVP SCH ×2 (08:20→21:52)
[2020-09-27] MEDS: METHYLPREDNISOLONE 40 MG INJ IV SCH ×2 (08:20→21:52)
[2020-09-27] MEDS: INSULIN GLARGINE 100 UNITS/ML SQ SCH ×2 (08:25→21:53)
--- NOTE | 2020-09-27 08:56 | P.PN ---
Subjective Date of Service: 09/27/20 Primary Care Provider: Dr. Mathis Chief Complaint: Respiratory failure Subjective: Other (Patient remains intubated. No sedation given still with no active response.) Physical Examination - Vital Signs Temperature: 97.5 F Blood Pressure: 131/64 Pulse: 65 Respirations: 30 Pulse Ox (%): 92 - Studies Medications List Reviewed: Yes Assessment & Plan Discharge Plan: LTAC Plan to discharge in: Greater than 2 days Physician Review Additional Text: Physical exam: Patient remains intubated without sedation. No significant response to agitation. Tracheostomy done on Saturday. On 65% Fi02. Neck: Tracheostomy in place. Less serous drainage noted from the tracheostomy. No significant erythema. Heart: Regular rate Lungs: Patient on ventilator. FiO2 at 50% % Abdomen: Soft Extremities: No focal deficits Impression: Dyspnea secondary to acute respiratory failure with acute respiratory syndrome related to bilateral COVID 19 pneumonia status post tracheostomy 09/23 Diabetes mellitus type 2 with hyperglycemia Hypertension Anemia of chronic disease Atrial fibrillation paroxysmal UTI, urine culture positive for Enterococcus Acute renal insufficiency with hypernatremia Thrombocytopenia likely inflammatory Plan: Dyspnea secondary to acute respiratory failure with acute respiratory syndrome related to bilateral COVID 19 pneumonia status post tracheostomy 09/23: Patient remains intubated without sedation. No response to pain or stimuli. Case discussed with pulmonology yesterday. CT scan obtained to evaluate for CVA. CT scan unremarkable. Will consult neurology for recommendation. May need to obtain EEG. Less serous drainage noted from tracheostomy site. Case discussed with ENT. Continue to apply bandages. No intervention needed. Recent sputum culture positive for Staph aureus. Continue with IV antibiotic therapy-Levaquin and IV antifungal-Diflucan. Culture obtained. Patient remains on supplementation. IV steroids restarted at lower dose. Continue to wean off oxygen. Will continue discuss with pulmonology. Case discussed with family yesterday. They agree with long-term acute care facility placement. Will discuss with him further concerning neurology workup. Diabetes mellitus type 2 with hyperglycemia: Continue to adjust medication for better control. Continue to adjust Lantus for better control. Patient no longer on D5W. Continue Accu-Cheks and sliding scale. Hypertension: Patient remains in normal rhythm. Will provide metoprolol as needed. Anemia of chronic disease: Will monitor closely. Atrial fibrillation paroxysmall: No further AFib noted. Patient remains in normal rhythm. Patient remains on metoprolol. UTI, urine culture positive for Enterococcus: Patient finish course of medication. Continue with Diflucan. Acute renal insufficiency with hypernatremia: Water flushes in place. Renal function stable. Hypernatremia resolved. Thrombocytopenia likely inflammatory: Continue to monitor closely. Time Spent Managing Pts Care (In Minutes): 55
[2020-09-27 10:26] LABS: Platelet Estimate DECR
[2020-09-27 10:27] LABS: Blood Morphology Comment NOT SEEN (NOT SEEN)
--- NOTE | 2020-09-27 12:13 | P.PN ---
Subjective Date of Service: 09/27/20 Primary Care Provider: Dr. Mathis Chief Complaint: Respiratory failure Patient is unresponsive hemodynamically stable oxygen requirements have been decreasing Review of Systems is unable to be obtained Physical Examination - Vital Signs Temperature: 97.5 F Blood Pressure: 154/68 Pulse: 71 Respirations: 30 Pulse Ox (%): 95 - Physical Exam General: Unresponsive Respiratory: Clear to auscultation bilaterally, Diminished Cardiovascular: Normal S1 S2, Edema - Studies Medications List Reviewed: Yes Assessment & Plan - Problems (Diagnosis) (1) Acute respiratory failure due to severe acute respiratory syndrome coronavirus 2 (SARS-CoV-2) infection Current Visit: Yes Status: Acute Plan: Respiratory failure CT of the head is negative ammonia levels are also normal patient is unresponsive labs reviewed hemoglobin stable continue to wean down on the oxygen chest x-ray shows significant ILD repeat sputum cultures are pending blood pressure mildly elevated prognosis poor LTAC evaluation pending Physician Review Additional Text: Physical exam: Patient remains intubated without sedation. No significant response to agitation. Tracheostomy done on Saturday. On 65% Fi02. Neck: Tracheostomy in place. Less serous drainage noted from the tracheostomy. No significant erythema. Heart: Regular rate Lungs: Patient on ventilator. FiO2 at 50% % Abdomen: Soft Extremities: No focal deficits Impression: Dyspnea secondary to acute respiratory failure with acute respiratory syndrome related to bilateral COVID 19 pneumonia status post tracheostomy 09/23 Diabetes mellitus type 2 with hyperglycemia Hypertension Anemia of chronic disease Atrial fibrillation paroxysmal UTI, urine culture positive for Enterococcus Acute renal insufficiency with hypernatremia Thrombocytopenia likely inflammatory Plan: Dyspnea secondary to acute respiratory failure with acute respiratory syndrome related to bilateral COVID 19 pneumonia status post tracheostomy 09/23: Patient remains intubated without sedation. No response to pain or stimuli. Case discussed with pulmonology yesterday. CT scan obtained to evaluate for CVA. CT scan unremarkable. Will consult neurology for recommendation. May need to obtain EEG. Less serous drainage noted from tracheostomy site. Case discussed with ENT. Continue to apply bandages. No intervention needed. Recent sputum culture positive for Staph aureus. Continue with IV antibiotic therapy-Levaquin and IV antifungal-Diflucan. Culture obtained. Patient remains on supplementation. IV steroids restarted at lower dose. Continue to wean off oxygen. Will continue discuss with pulmonology. Case discussed with family yesterday. They agree with long-term acute care facility placement. Will discuss with him further concerning neurology workup. Diabetes mellitus type 2 with hyperglycemia: Continue to adjust medication for better control. Continue to adjust Lantus for better control. Patient no longer on D5W. Continue Accu-Cheks and sliding scale. Hypertension: Patient remains in normal rhythm. Will provide metoprolol as needed. Anemia of chronic disease: Will monitor closely. Atrial fibrillation paroxysmall: No further AFib noted. Patient remains in normal rhythm. Patient remains on metoprolol. UTI, urine culture positive for Enterococcus: Patient finish course of medication. Continue with Diflucan. Acute renal insufficiency with hypernatremia: Water flushes in place. Renal function stable. Hypernatremia resolved. Thrombocytopenia likely inflammatory: Continue to monitor closely.
[2020-09-27] MEDS: Levofloxacin500mg IV 500 MG/100 ML BAG IV SCH (15:31)
--- NOTE | 2020-09-27 15:58 | RAD REPORT ---
EXAM DESCRIPTION: RAD - Abdomen 1 View (KUB) - 09/27/2020 3:39 pm CLINICAL HISTORY: evaluate Dobhoff placement Pain COMPARISON: Abdomen 1 View (KUB) dated 09/25/2020; Abdomen 1 View (KUB) dated 09/25/2020; Abdomen 1 Vi ew (KUB) dated 09/10/2020 FINDINGS: Tip of the enteric tube is at the level of the midesophagus.
--- NOTE | 2020-09-27 18:08 | RAD REPORT ---
EXAM DESCRIPTION: RAD - Abdomen 1 View (KUB) - 09/27/2020 5:42 pm CLINICAL HISTORY: Dobhoff placement Pain COMPARISON: Abdomen 1 View (KUB) dated 09/27/2020; Abdomen 1 View (KUB) dated 09/25/2020; Abdomen 1 Vi ew (KUB) dated 09/25/2020; Abdomen 1 View (KUB) dated 09/10/2020 FINDINGS: Tip of the enteric tube is in the stomach.
[2020-09-28] MEDS: LORazepam 2 MG/ML VIAL IV PRN ×3 (00:06→19:54)
[2020-09-28] MEDS: HYDROMORPHONE HCL 2 MG/ML inj IV PRN ×4 (00:09→22:16)
[2020-09-28] MEDS: INSULIN -REGULAR HUMAN 50 UNIT/0.5 ML ML SQ SCH ×4 (00:35→17:43)
[2020-09-28 05:20] LABS: Absolute Lymphocytes (CBC) 0.6 K/uL (0.7-4.9); Basophils % 0.5 % (0-1.3); MPV 12.2 fL (7.6-11.3); RBC Red Blood Cell Count 3.23 M/uL (3.86-4.86)
[2020-09-28] MEDS: METOPROLOL TAR 25 MG TAB PO SCH ×3 (05:25→19:47)
[2020-09-28 05:34] LABS: BUN Blood Urea Nitrogen 57 mg/dL (7-18); Bicarbonate 32 mmol/L (21-32); Glucose Level 191 mg/dL (74-106); Potassium 4.5 mmol/L (3.5-5.1); Sodium Level 144 mmol/L (136-145)
[2020-09-28] MEDS: DESMOPRESSIN 4 MCG/ML AMP SQ SCH ×2 (09:00→20:34)
[2020-09-28] MEDS: INSULIN GLARGINE 100 UNITS/ML SQ SCH ×2 (09:24→20:34)
[2020-09-28] MEDS: THIAMINE 200 MG/2 ML INJ IVP SCH ×2 (09:24→20:33)
[2020-09-28] MEDS: APIXABAN 5 MG TABLET PO SCH ×2 (09:25→20:33)
[2020-09-28] MEDS: FLUCONAZOLE 100 MG TAB PO SCH (09:25)
[2020-09-28] MEDS: FAMOTIDINE 20 MG TAB PO SCH ×2 (09:25→20:33)
[2020-09-28] MEDS: VITAMIN D 1000 UNIT TAB PO SCH (09:25)
[2020-09-28] MEDS: METHYLPREDNISOLONE 40 MG INJ IV SCH ×2 (09:25→20:33)
--- NOTE | 2020-09-28 14:05 | P.PN ---
Subjective Date of Service: 09/28/20 Primary Care Provider: Dr. Mathis Chief Complaint: Respiratory failure Subjective: Other (paitent remains intubated.) Physical Examination - Vital Signs Temperature: 99.4 F Blood Pressure: 160/96 Pulse: 92 Respirations: 30 Pulse Ox (%): 94 - Studies Medications List Reviewed: Yes Assessment & Plan Discharge Plan: LTAC Plan to discharge in: Greater than 2 days Physician Review Additional Text: Physical exam: Patient remains intubated without sedation. No significant response to agitation. On 50% Fi02. Neck: Tracheostomy in place. Less serous drainage noted from the tracheostomy. No significant erythema. Heart: Regular rate Lungs: Patient on ventilator. FiO2 at 50% % Abdomen: Soft Extremities: No focal deficits Impression: Dyspnea secondary to acute respiratory failure with acute respiratory syndrome related to bilateral COVID 19 pneumonia status post tracheostomy 09/23 Diabetes mellitus type 2 with hyperglycemia Hypertension Anemia of chronic disease Atrial fibrillation paroxysmal UTI, urine culture positive for Enterococcus Acute renal insufficiency with hypernatremia Thrombocytopenia likely inflammatory Plan: Dyspnea secondary to acute respiratory failure with acute respiratory syndrome related to bilateral COVID 19 pneumonia status post tracheostomy 09/23: Patient remains intubated. Still no significant response to pain or stimuli. Case discussed with pulmonology. CT scan of brain at negative. Await EEG. Will discuss further with Neurology. Recent sputum culture positive for Staph aureus. Continue with IV antibiotic therapy-Levaquin and IV antifungal- Diflucan. Culture obtained. Patient remains on supplementation. IV steroids restarted at lower dose. Continue to wean off oxygen. Will continue discuss with pulmonology. Case discussed with family yesterday. They agree with long- term acute care facility placement. They also understand the current workup with Neurology. Diabetes mellitus type 2 with hyperglycemia: Continue to adjust medication for better control. Continue to adjust Lantus for better control. Patient no longer on D5W. Continue Accu-Cheks and sliding scale. Hypertension: Patient remains in normal rhythm. Will provide metoprolol as needed. Anemia of chronic disease: Will monitor closely. Atrial fibrillation paroxysmall: No further AFib noted. Patient remains in normal rhythm. Patient remains on metoprolol. UTI, urine culture positive for Enterococcus: Patient finish course of medication. Continue with Diflucan. Acute renal insufficiency with hypernatremia: Water flushes in place. Renal function stable. Hypernatremia resolved. Thrombocytopenia likely inflammatory: Continue to monitor closely. Time Spent Managing Pts Care (In Minutes): 55
[2020-09-28] MEDS: Levofloxacin500mg IV 500 MG/100 ML BAG IV SCH (15:05)
[2020-09-28] MEDS: METOPROLOL TARTRATE 5 MG/5 ML INJ IV PRN (17:04)
[2020-09-28] MEDS: propofoL 1,000 MG/100 ML VIAL IV PRN (18:59)
[2020-09-28] MEDS: MORPHINE 2 MG/ML SYR IV PRN (19:39)
[2020-09-28] MEDS: CISATRACURIUM INJECTION 2 MG/ML (10 ML Vial) IV PRN (19:42)
[2020-09-29] MEDS: INSULIN -REGULAR HUMAN 50 UNIT/0.5 ML ML SQ SCH ×5 (00:09→23:53)
[2020-09-29] MEDS ORDERED: ATROPINE SULFATE 1 MG/ML INJ ONE (03:53)
[2020-09-29] MEDS ORDERED: ATROPINE SULF 1 MG/10 ML SYR IV ONE (03:54)
[2020-09-29] MEDS: METOPROLOL TAR 25 MG TAB PO SCH ×2 (05:27→17:46)
[2020-09-29] MEDS: propofoL 1,000 MG/100 ML VIAL IV PRN ×2 (05:56→15:03)
[2020-09-29 05:57] LABS: Absolute Lymphocytes (CBC) 0.7 K/uL (0.7-4.9); Basophils % 0.8 % (0-1.3); Hematocrit 26.7 % (36.0-45.0); Lymphocytes % 10.1 % (15.3-44.8); RBC Red Blood Cell Count 2.98 M/uL (3.86-4.86)
[2020-09-29 06:20] LABS: BUN Blood Urea Nitrogen 61 mg/dL (7-18); Bicarbonate 32 mmol/L (21-32); Ferritin 127.1 ng/mL (8-388); Glucose Level 244 mg/dL (74-106); Potassium 4.3 mmol/L (3.5-5.1); Sodium Level 142 mmol/L (136-145)
[2020-09-29] MEDS: APIXABAN 5 MG TABLET PO SCH ×2 (08:41→21:08)
[2020-09-29] MEDS: FAMOTIDINE 20 MG TAB PO SCH ×2 (08:41→21:06)
[2020-09-29] MEDS: VITAMIN D 1000 UNIT TAB PO SCH (08:41)
[2020-09-29] MEDS: FLUCONAZOLE 100 MG TAB PO SCH (08:42)
[2020-09-29] MEDS: THIAMINE 200 MG/2 ML INJ IVP SCH ×2 (08:42→21:10)
[2020-09-29] MEDS: METHYLPREDNISOLONE 40 MG INJ IV SCH ×2 (08:42→21:09)
[2020-09-29] MEDS: INSULIN GLARGINE 100 UNITS/ML SQ SCH ×2 (08:42→21:04)
[2020-09-29] MEDS: DESMOPRESSIN 4 MCG/ML AMP SQ SCH ×2 (08:43→21:00)
[2020-09-29 10:41] LABS: Blood Gas Oxyhemoglobin 78.6 % (94-97); Blood O2 Saturation 80.9 % (92-98.5)
--- NOTE | 2020-09-29 12:02 | RAD REPORT ---
EXAM DESCRIPTION: RAD - Chest Single View - 09/29/2020 11:41 am CLINICAL HISTORY: COVID PNA Chest pain. COMPARISON: Abdomen 1 View (KUB) dated 09/27/2020; Abdomen 1 View (KUB) dated 09/27/2020; Chest Single View dated 09/27/2020; Abdomen 1 View (KUB) dated 09/25/2020 FINDINGS: Portable technique limits examination quality. Mild bilateral pulmonary opacities are present without significant change since prior study. Mild sub cutaneous emphysema is present. Tracheostomy tube tip is above the level of the superior aortic arch. Enteric tube tip is in the stomach. Right-sided PICC line is stable in position.
--- NOTE | 2020-09-29 12:54 | P.PN ---
Subjective Date of Service: 09/29/20 Primary Care Provider: Dr. Mathis Chief Complaint: Respiratory failure Patient continues to remain unresponsive tachypneic on the ventilator Review of Systems is unable to be obtained Physical Examination - Vital Signs Temperature: 97.1 F Blood Pressure: 167/62 Pulse: 74 Respirations: 30 Pulse Ox (%): 90 - Physical Exam General: Unresponsive, Comatose Respiratory: Clear to auscultation bilaterally, Diminished Cardiovascular: Edema - Studies Medications List Reviewed: Yes Assessment & Plan - Problems (Diagnosis) (1) Acute respiratory failure due to severe acute respiratory syndrome coronavirus 2 (SARS-CoV-2) infection Status: Acute Plan: Respiratory failure hypoxic on 30% will increase FiO2 continues to remain unresponsive labs reviewed prognosis very poor stable for transfer to an LTAC all sputum cultures are positive for Staph
[2020-09-29] MEDS: HYDROMORPHONE HCL 2 MG/ML inj IV PRN ×2 (13:21→15:49)
[2020-09-29] MEDS: Levofloxacin500mg IV 500 MG/100 ML BAG IV SCH (15:04)
--- NOTE | 2020-09-29 15:11 | P.PN ---
Subjective Date of Service: 09/29/20 Primary Care Provider: Dr. Mathis Chief Complaint: Respiratory failure Subjective: Other (Still intubated. Currently on sedation medication.) Physical Examination - Vital Signs Temperature: 97.1 F Blood Pressure: 167/62 Pulse: 74 Respirations: 37 Pulse Ox (%): 91 - Studies Medications List Reviewed: Yes Assessment & Plan Discharge Plan: LTAC Plan to discharge in: 48 Hours Physician Review Additional Text: Physical exam: Patient remains intubated without sedation. No significant response to agitation. On 50% Fi02. Neck: Tracheostomy in place. Less serous drainage noted from the tracheostomy. No significant erythema. Heart: Regular rate Lungs: Patient on ventilator. FiO2 at 50% % Abdomen: Soft Extremities: No focal deficits Impression: Dyspnea secondary to acute respiratory failure with acute respiratory syndrome related to bilateral COVID 19 pneumonia status post tracheostomy 09/23 Diabetes mellitus type 2 with hyperglycemia Hypertension Anemia of chronic disease Atrial fibrillation paroxysmal UTI, urine culture positive for Enterococcus Acute renal insufficiency with hypernatremia Thrombocytopenia likely inflammatory Plan: Dyspnea secondary to acute respiratory failure with acute respiratory syndrome related to bilateral COVID 19 pneumonia status post tracheostomy 09/23: Patient remains intubated. Patient required medication for agitation. Waiting on EEG results. Family wants ECHO. Will order. Still no significant response to pain or stimuli. Case discussed with pulmonology. CT scan of brain at negative. Await EEG. Will discuss further with Neurology. Recent sputum culture positive for Staph aureus. Continue with IV antibiotic therapy-Levaquin and IV antifungal-Diflucan. Culture obtained. Patient remains on supplementation. IV steroids restarted at lower dose. Continue to wean off oxygen. Will continue discuss with pulmonology. Case discussed with family yesterday. They agree with long-term acute care facility placement. They also understand the current workup with Neurology. Diabetes mellitus type 2 with hyperglycemia: Continue to adjust medication for better control. Continue to adjust Lantus for better control. Patient no longer on D5W. Continue Accu-Cheks and sliding scale. Hypertension: Patient remains in normal rhythm. Will provide metoprolol as needed. Anemia of chronic disease: Will monitor closely. Atrial fibrillation paroxysmall: No further AFib noted. Patient remains in normal rhythm. Patient remains on metoprolol. UTI, urine culture positive for Enterococcus: Patient finish course of medication. Continue with Diflucan. Acute renal insufficiency with hypernatremia: Water flushes in place. Renal function stable. Hypernatremia resolved. Thrombocytopenia likely inflammatory: Continue to monitor closely. Time Spent Managing Pts Care (In Minutes): 55
[2020-09-30] MEDS: propofoL 1,000 MG/100 ML VIAL IV PRN ×3 (02:03→13:14)
[2020-09-30] MEDS: METOPROLOL TARTRATE 5 MG/5 ML INJ IV PRN (03:25)
[2020-09-30] MEDS: METOPROLOL TAR 25 MG TAB PO SCH ×2 (05:26→17:15)
[2020-09-30] MEDS: INSULIN -REGULAR HUMAN 50 UNIT/0.5 ML ML SQ SCH ×4 (05:27→23:31)
[2020-09-30 05:57] LABS: BUN Blood Urea Nitrogen 60 mg/dL (7-18); Bicarbonate 31 mmol/L (21-32); Glucose Level 257 mg/dL (74-106); Potassium 4.2 mmol/L (3.5-5.1); Sodium Level 141 mmol/L (136-145)
--- NOTE | 2020-09-30 07:45 | RAD REPORT ---
EXAM DESCRIPTION: Marti Single View09/30/2020 6:50 am CLINICAL HISTORY: Pneumonia COMPARISON: September FINDINGS: Overall no significant change in the bilateral pulmonary opacities. Feeding tube within th e mid stomach. PICC line in place. Tracheostomy tube is noted. Subcutaneous emphysema and pneumomediastinum persists
[2020-09-30] MEDS: FLUCONAZOLE 100 MG TAB PO SCH (08:35)
[2020-09-30] MEDS: THIAMINE 200 MG/2 ML INJ IVP SCH ×2 (08:35→21:10)
[2020-09-30] MEDS: METHYLPREDNISOLONE 40 MG INJ IV SCH (08:35)
[2020-09-30] MEDS: FAMOTIDINE 20 MG TAB PO SCH ×2 (08:36→21:09)
[2020-09-30] MEDS: VITAMIN D 1000 UNIT TAB PO SCH (08:36)
[2020-09-30] MEDS: DESMOPRESSIN 4 MCG/ML AMP SQ SCH ×2 (08:37→21:00)
[2020-09-30] MEDS: INSULIN GLARGINE 100 UNITS/ML SQ SCH ×2 (08:41→21:07)
[2020-09-30] MEDS: APIXABAN 5 MG TABLET PO SCH ×2 (08:48→21:09)
--- NOTE | 2020-09-30 09:34 | P.PN ---
Subjective Date of Service: 09/30/20 Primary Care Provider: Dr. Mathis Chief Complaint: Respiratory failure No change still continues to remain unresponsive Review of Systems is unable to be obtained Physical Examination - Vital Signs Temperature: 97.7 F Blood Pressure: 149/51 Pulse: 117 Respirations: 33 Pulse Ox (%): 92 - Physical Exam General: Comatose HEENT: Other (Subcutaneous emphysema was able on the chest) Neurological: Other (No response to painful stimuli pupils sluggish) - Studies Medications List Reviewed: Yes Assessment & Plan - Problems (Diagnosis) (1) Acute respiratory failure due to severe acute respiratory syndrome coronavirus 2 (SARS-CoV-2) infection Status: Acute Plan: Respiratory failure patient continues to remain unresponsive repeat blood gases pending BUN is mildly elevated patient is on Levaquin for Staph aureus infection can change it to p.o. prognosis poor stable for transfer to an LTAC patient has subcutaneous emphysema developed AFib last night continue with rate control and anticoagulation
[2020-09-30 10:29] LABS: Blood O2 Saturation 91.8 % (92-98.5)
[2020-09-30] MEDS: HYDROMORPHONE HCL 2 MG/ML inj IV PRN (11:00)
[2020-09-30] MEDS: VITAL HP 1,000 ML BOT RTH SCH (13:15)
--- NOTE | 2020-09-30 15:20 | P.PN ---
Subjective Date of Service: 09/30/20 Primary Care Provider: Dr. Mathis Chief Complaint: Respiratory failure Subjective: Other (patient remains intubated. Patient had episode of atrial fibrillation. This improved with IV metoprolol.) Physical Examination - Vital Signs Temperature: 97.7 F Blood Pressure: 149/51 Pulse: 117 Respirations: 31 Pulse Ox (%): 95 - Studies Medications List Reviewed: Yes Assessment & Plan Discharge Plan: LTAC Plan to discharge in: Greater than 2 days Physician Review Additional Text: Physical exam: Patient had episode of atrial fibrillation last night. Patient received IV metoprolol. Rate better controlled. Patient in and out of atrial fibrillation. Patient remains intubated with sedation.. No significant response to agitation. Patient was on 50% this morning. Now up to 75% Fi02.. Neck: Tracheostomy in place. Less serous drainage noted from the tracheostomy. No significant erythema. Subcutaneous emphysema noted. Heart: Regular rate Lungs: Patient on ventilator. FiO2 at 50% this morning now up to 75% Abdomen: Soft Extremities: No focal deficits Impression: Dyspnea secondary to acute respiratory failure with acute respiratory syndrome related to bilateral COVID 19 pneumonia status post tracheostomy 09/23 Diabetes mellitus type 2 with hyperglycemia Hypertension Anemia of chronic disease Atrial fibrillation paroxysmal UTI, urine culture positive for Enterococcus Acute renal insufficiency with hypernatremia Thrombocytopenia likely inflammatory Plan: Dyspnea secondary to acute respiratory failure with acute respiratory syndrome related to bilateral COVID 19 pneumonia status post tracheostomy 09/23: Patient remains intubated. Patient still on Sedation medication. Patient had episode of atrial fibrillation early this morning. Patient required IV metoprolol. Patient responds well. Patient in and out of atrial fibrillation. Case discussed with Pulmonary. Patient may require IV amiodarone if this persists. Still waiting on the EEG report. Will discuss with Neurology. Case discussed with insurance. Patient denied long-term acute care facility due to current status. Will need to Re appeal once condition has improved. Continue current plan of care will discuss with family on details. Diabetes mellitus type 2 with hyperglycemia: Continue to adjust medication for better control. Continue to adjust Lantus for better control. Patient no longer on D5W. Continue Accu-Cheks and sliding scale. Hypertension: Patient remains in normal rhythm. Will provide metoprolol as needed. Anemia of chronic disease: Will monitor closely. Atrial fibrillation paroxysmall: Patient on metoprolol. Patient to get IV medication if AFib remains. If worse will consider amiodarone. UTI, urine culture positive for Enterococcus: Patient finish course of medication. Continue with Diflucan. Acute renal insufficiency with hypernatremia: Water flushes in place. Renal function stable. Hypernatremia resolved. Thrombocytopenia likely inflammatory: Continue to monitor closely. Time Spent Managing Pts Care (In Minutes): 55
[2020-09-30] MEDS: METHYLPRED NA SUC 1,000 MG in NA CHLORIDE 0.9% 100 ML IV SCH (18:13)
[2020-09-30] MEDS ORDERED: INSULIN GLARGINE 100 UNITS/ML SQ SCH (21:00)
[2020-10-01] MEDS: METOPROLOL TAR 25 MG TAB PO SCH ×2 (05:49→17:20)
[2020-10-01] MEDS: propofoL 1,000 MG/100 ML VIAL IV PRN ×2 (05:50→13:20)
[2020-10-01] MEDS: INSULIN -REGULAR HUMAN 50 UNIT/0.5 ML ML SQ SCH ×4 (05:51→23:39)
[2020-10-01 06:18] LABS: BUN Blood Urea Nitrogen 61 mg/dL (7-18); Bicarbonate 32 mmol/L (21-32); Glucose Level 194 mg/dL (74-106); Potassium 4.1 mmol/L (3.5-5.1); Sodium Level 140 mmol/L (136-145)
[2020-10-01 07:20] LABS: Arterial Blood Carboxyhemoglob 1.7 % (0-1.5); Blood Gas Oxyhemoglobin 93.3 % (94-97); Blood O2 Saturation 95.7 % (92-98.5)
--- NOTE | 2020-10-01 07:49 | P.PN ---
Subjective Date of Service: 10/01/20 Primary Care Provider: Dr. Mathis Chief Complaint: Respiratory failure Subjective: Other (Patient remains intubated. Patient getting some sedation medication.) Physical Examination - Vital Signs Temperature: 97.5 F Blood Pressure: 140/61 Pulse: 81 Respirations: 29 Pulse Ox (%): 100 - Studies Medications List Reviewed: Yes Assessment & Plan Discharge Plan: LTAC Plan to discharge in: 48 Hours Physician Review Additional Text: Physical exam: Patient now in normal sinus rhythm. Patient still requires some sedation medication. Patient remains on 75% Fi02. Patient remains intubated. Neck: Tracheostomy in place. Subcutaneous emphysema noted. Heart: Regular rate, normal sinus rhythm noted Lungs: Patient on ventilator. Patient on 75% of her O2. Abdomen: Soft Extremities: No focal deficits. Edema to the upper and lower extremities noted. Impression: Dyspnea secondary to acute respiratory failure with acute respiratory syndrome related to bilateral COVID 19 pneumonia status post tracheostomy 3/ COVID 19 encephalopathy Diabetes mellitus type 2 with hyperglycemia Hypertension Anemia of chronic disease Atrial fibrillation paroxysmal UTI, urine culture positive for Enterococcus Acute renal insufficiency with hypernatremia Thrombocytopenia likely inflammatory Sputum culture positive for Staph aureus Plan: Dyspnea secondary to acute respiratory failure with acute respiratory syndrome related to bilateral COVID 19 pneumonia status post tracheostomy 09/23: Patient remains intubated. Patient on 75% FiO2. Patient has failed spontaneous breathing trial. Respiratory to continue to try to addressed spontaneous breathing trial. Nurses will tried to decrease sedation medication. Patient in normal sinus rhythm as medication adjusted yesterday. Continue IV metoprolol and oral metoprolol that is scheduled. High-dose steroids initiated yesterday due to encephalopathy. EEG results reported and discussed with Neurology. Plan of care did discussed in detail with family. Patient now do not resuscitate. Continue to monitor closely. Patient to get high dose steroids for the next 2 days. Also discuss case with medical records supervisor. Patient was denied LTAC. Once FiO2 is below 60%, and patient continues to fail spontaneous breathing process, and stable for transfer then will reappeal for LTAC. COVID 19 encephalopathy: EEG reviewed with Neurology. Case discussed in detail with Neurology, pulmonology. Decision to start high-dose steroids made yesterday. Family in agreement. Diabetes mellitus type 2 with hyperglycemia: Continue to adjust medication for better control. Continue to adjust Lantus for better control. Patient no longer on D5W. Continue Accu-Cheks and sliding scale. Hypertension: Patient remains in normal rhythm. Continue with scheduled metoprolol. IV metoprolol as needed.. Anemia of chronic disease: Will monitor closely. Atrial fibrillation paroxysmall: Continue scheduled metoprolol. Patient now in normal sinus rhythm. UTI, urine culture positive for Enterococcus: Patient finish course of medication. Continue with Diflucan. Acute renal insufficiency with hypernatremia: Water flushes in place. Renal function stable. Hypernatremia resolved. Thrombocytopenia likely inflammatory: Continue to monitor closely. Overall stable. Sputum culture positive for Staph aureus: Medications adjusted yesterday. Levaquin discontinued. Now on doxycycline. Time Spent Managing Pts Care (In Minutes): 55
[2020-10-01] MEDS: THIAMINE 200 MG/2 ML INJ IVP SCH ×2 (09:00→21:04)
[2020-10-01] MEDS ORDERED: levoFLOXacin 500 MG TAB PO SCH (09:00)
[2020-10-01] MEDS: DESMOPRESSIN 4 MCG/ML AMP SQ SCH ×2 (09:00→21:00)
[2020-10-01] MEDS: INSULIN GLARGINE 100 UNITS/ML SQ SCH ×2 (09:01→21:03)
[2020-10-01] MEDS: APIXABAN 5 MG TABLET PO SCH ×2 (09:01→21:03)
[2020-10-01] MEDS: FLUCONAZOLE 100 MG TAB PO SCH (09:01)
[2020-10-01] MEDS: VITAMIN D 1000 UNIT TAB PO SCH (09:01)
[2020-10-01] MEDS: FAMOTIDINE 20 MG TAB PO SCH ×2 (09:01→21:04)
[2020-10-01] MEDS: METHYLPRED NA SUC 1,000 MG in NA CHLORIDE 0.9% 100 ML IV SCH (09:02)
--- NOTE | 2020-10-01 11:14 | P.PN ---
Subjective Date of Service: 10/01/20 Primary Care Provider: Dr. Mathis Chief Complaint: Respiratory failure altered mental status possible encephalopathy Patient is not doing well she is not responsive oxygenation satisfactory Review of Systems is unable to be obtained Physical Examination - Vital Signs Temperature: 97.7 F Blood Pressure: 146/69 Pulse: 79 Respirations: 30 Pulse Ox (%): 100 - Physical Exam General: Comatose Respiratory: Clear to auscultation bilaterally Cardiovascular: Normal S1 S2, Edema - Studies Medications List Reviewed: Yes Assessment & Plan - Problems (Diagnosis) (1) Acute respiratory failure due to severe acute respiratory syndrome coronavirus 2 (SARS-CoV-2) infection Current Visit: Yes Status: Acute Plan: Respiratory failure is stable oxygen requirements are around 50% over patient he is unresponsive in coma will try to wean off the propofol use p.r.n. sedation only chemistries reviewed patient is now a DNR agree with 1 g a day x3 days bolus Solu-Medrol blood pressure is stable prognosis poor LTAC denied
--- NOTE | 2020-10-01 11:35 | RAD REPORT ---
EXAM DESCRIPTION: RAD - Chest Single View - 10/01/2020 6:42 am CLINICAL HISTORY: COVID PNA Chest pain. COMPARISON: Chest Single View dated 09/30/2020; Chest Single View dated 09/29/2020; Abdomen 1 View ([facility]) dated 09/27/2020; Abdomen 1 View ([facility]) dated 09/27/2020 FINDINGS: Portable technique limits examination quality. Tip of the tracheostomy tube is slightly above the level of the aortic arch. Right-sided PICC line newsome s tip in the SVC. Enteric tube descends in the stomach. Bilateral pulmonary opacities are again seen, slightly improved. Mild left-sided subcutaneous emphysema, also mildly improved.
[2020-10-01] MEDS: DOXYCYCLINE 100 MG CAP PO SCH ×2 (12:14→21:04)
[2020-10-01] MEDS: HYDROMORPHONE HCL 2 MG/ML inj IV PRN (13:20)
[2020-10-01] MEDS: VITAL HP 1,000 ML BOT RTH SCH (15:22)
[2020-10-02] MEDS: HYDROMORPHONE HCL 2 MG/ML inj IV PRN ×4 (02:12→22:42)
[2020-10-02] MEDS: propofoL 1,000 MG/100 ML VIAL IV PRN ×2 (02:58→11:55)
[2020-10-02] MEDS: METOPROLOL TAR 25 MG TAB PO SCH ×2 (05:36→16:50)
[2020-10-02] MEDS: INSULIN -REGULAR HUMAN 50 UNIT/0.5 ML ML SQ SCH ×4 (05:39→23:50)
[2020-10-02 06:19] LABS: Absolute Lymphocytes (CBC) 0.4 K/uL (0.7-4.9); Basophils % 0.1 % (0-1.3); Hematocrit 22.5 % (36.0-45.0); Lymphocytes % 7.2 % (15.3-44.8); MPV 12.3 fL (7.6-11.3); RBC Red Blood Cell Count 2.54 M/uL (3.86-4.86)
[2020-10-02 06:43] LABS: BUN Blood Urea Nitrogen 71 mg/dL (7-18); Bicarbonate 31 mmol/L (21-32); Ferritin 78.3 ng/mL (8-388); Glucose Level 225 mg/dL (74-106); Magnesium 2.1 mg/dL (1.8-2.4); Potassium 3.9 mmol/L (3.5-5.1); Sodium Level 139 mmol/L (136-145)
[2020-10-02] MEDS ORDERED: FUROSEMIDE 20 MG/ 2ML VIAL IV PRN (07:09)
--- NOTE | 2020-10-02 08:14 | RAD REPORT ---
EXAM DESCRIPTION: Marti Single View3 6:05 am CLINICAL HISTORY: Pneumonia COMPARISON: October 01, 2020 FINDINGS: Mild improvement in the bilateral pulmonary opacities. Heart remains enlarged. Pneumomedi astinum and subcutaneous emphysema is again seen. Feeding tube within the mid stomach IMPRESSION: Mild improvement in the bilateral pulmonary opacities
[2020-10-02] MEDS: THIAMINE 200 MG/2 ML INJ IVP SCH ×2 (08:35→20:18)
[2020-10-02] MEDS: FAMOTIDINE 20 MG TAB PO SCH ×2 (08:36→20:18)
[2020-10-02] MEDS: APIXABAN 5 MG TABLET PO SCH ×2 (08:36→20:18)
[2020-10-02] MEDS: FLUCONAZOLE 100 MG TAB PO SCH (08:36)
[2020-10-02] MEDS: INSULIN GLARGINE 100 UNITS/ML SQ SCH ×2 (08:36→20:39)
[2020-10-02] MEDS: VITAMIN D 1000 UNIT TAB PO SCH (08:36)
[2020-10-02] MEDS: DOXYCYCLINE 100 MG CAP PO SCH ×2 (08:37→20:18)
[2020-10-02] MEDS: METHYLPRED NA SUC 1,000 MG in NA CHLORIDE 0.9% 100 ML IV SCH (08:52)
[2020-10-02 09:26] LABS: Anisocytosis 1+; Blood Morphology Comment NOTED (NOT SEEN); Platelet Estimate DECR; White Blood Cell Scan OK (OK)
[2020-10-02 09:47] LABS: Arterial Blood Carboxyhemoglob 1.5 % (0-1.5); Blood Gas Oxyhemoglobin 93.2 % (94-97); Blood O2 Saturation 95.4 % (92-98.5)
--- NOTE | 2020-10-02 10:57 | P.PN ---
Subjective Date of Service: 10/02/20 Primary Care Provider: Dr. Mathis Chief Complaint: Respiratory failure Subjective: No new changes Physical Examination - Vital Signs Temperature: 97.3 F Blood Pressure: 106/60 Pulse: 64 Respirations: 32 Pulse Ox (%): 98 - Studies Medications List Reviewed: Yes Assessment & Plan Discharge Plan: LTAC Plan to discharge in: Greater than 2 days Physician Review Additional Text: Physical exam: Patient remains intubated with some sedation. No significant response to agitation. On 75 % Fi02. Neck: Tracheostomy in place. Less serous drainage noted from the tracheostomy. No significant erythema. Heart: Regular rate Lungs: Patient on ventilator. FiO2 at 75% % Abdomen: Soft Extremities: No focal deficits Impression: Dyspnea secondary to acute respiratory failure with acute respiratory syndrome related to bilateral COVID 19 pneumonia status post tracheostomy 09/23 COVID 19 Encephalopathy Diabetes mellitus type 2 with hyperglycemia Hypertension Anemia of chronic disease Atrial fibrillation paroxysmal UTI, urine culture positive for Enterococcus Acute renal insufficiency with hypernatremia Thrombocytopenia likely inflammatory Plan: Dyspnea secondary to acute respiratory failure with acute respiratory syndrome related to bilateral COVID 19 pneumonia status post tracheostomy 09/23: Patient remains intubated. Some sedation still required for agitation. Patient currently on 75% Fi02. Hemoglobin low compared to yesterday. Will repeat to confirm. If less than 7.5 will transfuse 1 unit of blood. Continue with high- dose steroids today. Continue with IV antibiotic therapy and antifungal. Continue to wean off ventilator. Hopefully the patient will start to be come more alert and cooperative with high-dose steroids. If patient able to get below 60% Fi02 then will proceed with appeal for long-term acute care facility placement. Will continue to discuss with family. I will turn the service over to the hospital team tomorrow. I will go plan of care with him. COVID 19 encephalopathy: Continue with high dose steroid. Case discussed with Neurology who recommended high dose steroid. Await to see her response. Diabetes mellitus type 2 with hyperglycemia: Continue to adjust Lantus for better control. Sliding scale in place. Hypertension: Patient remains in normal rhythm. Continue metoprolol. Hold parameters in place. Anemia of chronic disease: Will monitor closely. Atrial fibrillation paroxysmall: No further AFib noted. Patient remains in normal rhythm. Patient remains on metoprolol. UTI, urine culture positive for Enterococcus: Patient finish course of medication. Continue with Diflucan. Acute renal insufficiency with hypernatremia: Water flushes in place. Will discontinue desmopressin due to no further hypernatremic. Will discuss with pulmonology. Thrombocytopenia likely inflammatory: Continue to monitor closely. Time Spent Managing Pts Care (In Minutes): 55
[2020-10-02 11:16] LABS: Hematocrit 21.9 % (36.0-45.0)
--- NOTE | 2020-10-02 12:28 | P.PN ---
Subjective Date of Service: 10/02/20 Primary Care Provider: Dr. Mathis Chief Complaint: Respiratory failure No change patient is unresponsive blood pressure stable labs reviewed BUN elevated saunders a saunders satisfactory Review of Systems is unable to be obtained Physical Examination - Vital Signs Temperature: 97.3 F Blood Pressure: 98/41 Pulse: 58 Respirations: 30 Pulse Ox (%): 96 - Physical Exam General: Comatose Respiratory: Clear to auscultation bilaterally, Diminished - Studies Medications List Reviewed: Yes Assessment & Plan - Problems (Diagnosis) (1) Acute respiratory failure due to severe acute respiratory syndrome coronavirus 2 (SARS-CoV-2) infection Current Visit: Yes Status: Acute Plan: Respiratory failure will tend to her titrate down to a sat of 90% repeat arterial blood gases stable to transfer AF FiO2 requirement is below 60% as per an LTAC criteria will try to wean her down from the ventilator patient is anemic to transfuse 1 unit of packed red blood cells will Dc desmopressin and hold Lasix continues to remain unresponsive this is has pallor dose of 1 g of Solu- Medrol will change person to her previous dose
[2020-10-02 14:16] LABS: Arterial Blood Carboxyhemoglob 1.7 % (0-1.5); Blood Gas Oxyhemoglobin 85.8 % (94-97); Blood O2 Saturation 88.1 % (92-98.5)
[2020-10-02 14:49] LABS: Hematocrit 23.9 % (36.0-45.0)
[2020-10-02 19:42] LABS: Hematocrit 24.7 % (36.0-45.0)
[2020-10-03] MEDS: propofoL 1,000 MG/100 ML VIAL IV PRN ×3 (04:32→21:00)
[2020-10-03 05:13] LABS: Absolute Lymphocytes (CBC) 0.3 K/uL (0.7-4.9); Basophils % 0.4 % (0-1.3); Hematocrit 25.4 % (36.0-45.0); Lymphocytes % 7.3 % (15.3-44.8); MPV 11.8 fL (7.6-11.3)
[2020-10-03 05:25] LABS: Arterial Blood Carboxyhemoglob 1.7 % (0-1.5); Blood Gas Oxyhemoglobin 91.2 % (94-97); Blood O2 Saturation 93.5 % (92-98.5)
[2020-10-03 05:31] LABS: BUN Blood Urea Nitrogen 81 mg/dL (7-18); Bicarbonate 30 mmol/L (21-32); Ferritin 73.6 ng/mL (8-388); Glucose Level 198 mg/dL (74-106); Magnesium 2.1 mg/dL (1.8-2.4); Potassium 3.9 mmol/L (3.5-5.1); Sodium Level 138 mmol/L (136-145)
[2020-10-03] MEDS: METOPROLOL TAR 25 MG TAB PO SCH ×2 (05:49→17:20)
[2020-10-03] MEDS: INSULIN -REGULAR HUMAN 50 UNIT/0.5 ML ML SQ SCH ×3 (05:49→17:20)
[2020-10-03] MEDS: DOXYCYCLINE 100 MG CAP PO SCH ×2 (08:32→19:52)
[2020-10-03] MEDS: VITAMIN D 1000 UNIT TAB PO SCH (08:32)
[2020-10-03] MEDS: APIXABAN 5 MG TABLET PO SCH ×2 (08:32→08:44)
[2020-10-03] MEDS: FAMOTIDINE 20 MG TAB PO SCH ×2 (08:32→19:52)
[2020-10-03] MEDS: FLUCONAZOLE 100 MG TAB PO SCH (08:32)
[2020-10-03] MEDS: INSULIN GLARGINE 100 UNITS/ML SQ SCH ×2 (08:36→19:50)
--- NOTE | 2020-10-03 08:43 | RAD REPORT ---
EXAM DESCRIPTION: RAD - Chest Single View - 10/03/2020 5:36 am CLINICAL HISTORY: COVID PNA Chest pain. COMPARISON: Chest Single View dated 10/02/2020; Chest Single View dated 10/01/2020; Chest Single View dated 09/30/2020; Chest Single View dated 09/29/2020 FINDINGS: Portable technique limits examination quality. Tracheostomy tube tip is at the level of the aortic arch. Enteric tube descends into the stomach. Rig ht-sided PICC line is unchanged in position. Bilateral pulmonary opacities are stable since prior oliver dy. IMPRESSION: Stable chest since yesterday's examination.
[2020-10-03] MEDS: METHYLPREDNISOLONE 40 MG INJ IV SCH ×2 (09:01→19:52)
[2020-10-03] MEDS: THIAMINE 200 MG/2 ML INJ IVP SCH ×2 (09:01→19:52)
[2020-10-03] MEDS: HYDROMORPHONE HCL 2 MG/ML inj IV PRN ×2 (09:12→15:02)
[2020-10-03] MEDS: ENOXAPARIN 40 MG/0.4 ML SQ SCH (09:18)
--- NOTE | 2020-10-03 10:57 | EEG ---
CHART: [id number] TEST ID#: [id number] DATE OF STUDY: 09/28/2020 THE EEG WAS RECORDED PORTABLE IN THE [facility] ICU ON A 17 CHANNEL MACHINE. ELECTRODES WERE APPLIED IN THE USUAL MANNER USING THE INTERNATIONAL 10-20 SYSTEM. THE WAKING BACKGROUND RHYTHM IN THIS RECORD CONSISTS OF POORLY DEVELOPED AND POORLY ORGANIZED WAVES OF 8 HZ., MAXIMAL IN THE POSTERIOR HEAD REGIONS WHICH ATTENUATE NORMALLY WITH EYE OPENING. MODERATE VOLTAGE 1.5-3 HZ ACTIVITY IS EXPRESSED IN THE FRONTAL REGIONS. DIAPHASIC AND TRIPHASIC WAVES ARE EXPRESSED IN THE FRONTAL REGIONS. SHARP WAVES ARE NOTED IN THE TEMPORAL REGIONS. THERE ARE NO FOCAL OR LATERALIZING FEATURES. NO EPILEPTIFORM ACTIVITY APPEARS. HYPERVENTILATION WAS NOT PERFORMED. PHOTIC STIMULATION PRODUCED NO DRIVING BILATERALLY. IMPRESSION: THIS IS A MODERATELY ABNORMAL EEG DUE TO A MODERATELY SLOW BACKGROUND. THIS IS A NON-SPECIFIC FINDING INDICATING THE PRESENCE OF A MODERATE DIFFUSE DISTURBANCE IN CEREBRAL FUNCTION.
--- NOTE | 2020-10-03 12:37 | P.PN ---
Subjective Date of Service: 10/03/20 Primary Care Provider: Dr. Mathis Chief Complaint: Respiratory failure No change in patient's condition unable to tolerate weaning still unresponsive Review of Systems is unable to be obtained Physical Examination - Vital Signs Temperature: 98 F Blood Pressure: 122/68 Pulse: 90 Respirations: 32 Pulse Ox (%): 95 - Physical Exam General: Unresponsive Respiratory: Clear to auscultation bilaterally, Diminished - Studies Medications List Reviewed: Yes Assessment & Plan - Problems (Diagnosis) (1) Acute respiratory failure due to severe acute respiratory syndrome coronavirus 2 (SARS-CoV-2) infection Status: Acute Plan: Respiratory failure from zarate virus 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 oxygenation satisfactory on 60% air PO2 is 65 stable for transfer to an LTAC unit patient is on doxycycline repeat sputum culture prognosis poor
[2020-10-04] MEDS: METOPROLOL TAR 25 MG TAB PO SCH ×2 (05:30→17:26)
[2020-10-04] MEDS: HYDROMORPHONE HCL 2 MG/ML inj IV PRN ×3 (05:30→17:26)
[2020-10-04 05:34] LABS: Absolute Lymphocytes (CBC) 0.8 K/uL (0.7-4.9); Basophils % 0.5 % (0-1.3); Lymphocytes % 9.6 % (15.3-44.8); MPV 11.6 fL (7.6-11.3); RBC Red Blood Cell Count 3.18 M/uL (3.86-4.86)
[2020-10-04 06:02] LABS: BUN Blood Urea Nitrogen 85 mg/dL (7-18); Bicarbonate 29 mmol/L (21-32); Ferritin 87.9 ng/mL (8-388); Glucose Level 213 mg/dL (74-106); Magnesium 2.2 mg/dL (1.8-2.4); Potassium 4.1 mmol/L (3.5-5.1); Sodium Level 136 mmol/L (136-145)
[2020-10-04 06:06] LABS: Arterial Blood Carboxyhemoglob 1.7 % (0-1.5); Blood Gas Oxyhemoglobin 86.1 % (94-97); Blood O2 Saturation 88.5 % (92-98.5)
[2020-10-04 06:34] LABS: Blood Morphology Comment NOT SEEN (NOT SEEN); Platelet Estimate DECR; White Blood Cell Scan OK (OK)
[2020-10-04] MEDS: INSULIN -REGULAR HUMAN 50 UNIT/0.5 ML ML SQ SCH ×4 (06:38→18:23)
--- NOTE | 2020-10-04 07:23 | RAD REPORT ---
EXAM DESCRIPTION: RAD - Chest Single View - 10/04/2020 7:03 am CLINICAL HISTORY: COVID PNA COMPARISON: October 03 TECHNIQUE: AP portable chest image was obtained 10/04/2020 7:03 am . FINDINGS: Trach tube is in place. Feeding tube extends below the diaphragm, off the field of view. N o change in positioning of the right PICC line. Bilateral airspace opacification is present worse in the left base. Lung findings are not substantial ly different. No progression of disease identifiable. Heart size is normal and stable. Central vascul ature is prominent. No measurable pleural effusion and no pneumothorax. IMPRESSION: Stable bilateral airspace opacification, remaining worse in the left base.
[2020-10-04] MEDS: INSULIN GLARGINE 100 UNITS/ML SQ SCH ×2 (08:43→20:08)
[2020-10-04] MEDS: ENOXAPARIN 40 MG/0.4 ML SQ SCH (08:44)
[2020-10-04] MEDS: VITAMIN D 1000 UNIT TAB PO SCH (08:44)
[2020-10-04] MEDS: FLUCONAZOLE 100 MG TAB PO SCH (08:44)
[2020-10-04] MEDS: METHYLPREDNISOLONE 40 MG INJ IV SCH ×2 (08:45→20:10)
[2020-10-04] MEDS: THIAMINE 200 MG/2 ML INJ IVP SCH ×2 (08:45→20:10)
[2020-10-04] MEDS: FAMOTIDINE 20 MG TAB PO SCH ×2 (08:45→20:09)
[2020-10-04] MEDS: DOXYCYCLINE 100 MG CAP PO SCH ×2 (08:46→20:10)
[2020-10-04] MEDS: propofoL 1,000 MG/100 ML VIAL IV PRN (08:54)
[2020-10-04] MEDS ORDERED: VITAL HP 1,000 ML BOT RTH SCH (14:22)
[2020-10-05] MEDS: HYDROMORPHONE HCL 2 MG/ML inj IV PRN ×3 (01:30→21:02)
[2020-10-05] MEDS: propofoL 1,000 MG/100 ML VIAL IV PRN ×2 (05:30→18:31)
[2020-10-05] MEDS: METOPROLOL TAR 25 MG TAB PO SCH ×2 (06:00→18:08)
[2020-10-05] MEDS: INSULIN -REGULAR HUMAN 50 UNIT/0.5 ML ML SQ SCH ×4 (06:00→18:09)
[2020-10-05 06:02] LABS: Arterial Blood Carboxyhemoglob 1.7 % (0-1.5); Blood O2 Saturation 97.6 % (92-98.5)
--- NOTE | 2020-10-05 08:27 | P.PN ---
Date of Service: 10/03/20 Subjective Patient not really waking up. Sedated. Even though without sedation she really does not wake up and respond. May need to repeat EEG. Review of Systems is unable to be obtained Physical Examination - Vital Signs Reviewed - Physical Exam General: Other (Intubated and sedated) HEENT: Other (ET tube and NG tube in place) Respiratory: Diminished, Crackles/rales Cardiovascular: Regular rate/rhythm, Normal S1 S2, No murmurs Musculoskeletal: No clubbing, Swelling Integumentary: Other (With crepitus) Neurological: Other (Difficult to examine) Assessment & Plan - Problems (Diagnosis) (1) Acute respiratory failure due to COVID-19 Current Visit: Yes Status: Acute (2) History of chronic pancreatitis Current Visit: Yes Status: Acute (3) Cirrhosis of liver Current Visit: Yes Status: Chronic Qualifiers: Hepatic cirrhosis type: unspecified hepatic cirrhosis Ascites presence: with ascites Qualified Code(s): K74.60 - Unspecified cirrhosis of liver; R18.8 - Other ascites (4) Hypertension Current Visit: Yes Status: Chronic Qualifiers: Hypertension type: essential hypertension Qualified Code(s): I10 - Essential (primary) hypertension (5) Diabetes Current Visit: No Status: Acute Qualifiers: Diabetes mellitus type: type 2 Diabetes mellitus care home insulin use: with care home use Diabetes mellitus complication status: without complication Qualified Code(s): E11.9 - Type 2 diabetes mellitus without complications; Z79.4 - superintendent terminal (current) use of insulin (6) Pneumonia due to COVID-19 virus Current Visit: No Status: Acute - Plan Plan: Continue with plan of care as mentioned below 1. Continue with monitoring neurologic status 2. Continue vent management 3. Monitor imaging 4. Trach care. 5. Continue with tube feedings 6. Discuss with family regarding code status 7. Monitor inflammatory markers 8. GI and DVT prophylaxis Discharge Plan: Home Plan to discharge in: Greater than 2 days - Advance Directives Does patient have a Living Will: No Does patient have a Durable POA for Healthcare: Yes - Code Status/Comfort Care Code Status: Full Code Critical Care: Yes Time Spent Managing PTS Care (In Minutes): 35
--- NOTE | 2020-10-05 08:29 | P.PN ---
Date of Service: 10/04/20 Subjective Patient with a lot of blood in the oral pharyngeal region. Continue with trach care. EEG in the a.m.. Repeat chest x-ray in the morning. Review of Systems is unable to be obtained Physical Examination - Vital Signs Reviewed - Physical Exam General: Other (Intubated and sedated) HEENT: Other (ET tube and NG tube in place) Respiratory: Diminished, Crackles/rales Cardiovascular: Regular rate/rhythm, Normal S1 S2, No murmurs Musculoskeletal: No clubbing, Swelling Integumentary: Other (With crepitus) Neurological: Other (Difficult to examine) Assessment & Plan - Problems (Diagnosis) (1) Acute respiratory failure due to COVID-19 Current Visit: Yes Status: Acute (2) History of chronic pancreatitis Current Visit: Yes Status: Acute (3) Cirrhosis of liver Current Visit: Yes Status: Chronic Qualifiers: Hepatic cirrhosis type: unspecified hepatic cirrhosis Ascites presence: with ascites Qualified Code(s): K74.60 - Unspecified cirrhosis of liver; R18.8 - Other ascites (4) Hypertension Current Visit: Yes Status: Chronic Qualifiers: Hypertension type: essential hypertension Qualified Code(s): I10 - Essential (primary) hypertension (5) Diabetes Current Visit: No Status: Acute Qualifiers: Diabetes mellitus type: type 2 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 Continue with monitoring neurologic status; EEG in a.m. 2. Continue vent management; trach care 3. Monitor imaging 4. Discuss with family regarding long-term plan of care 5. Continue with tube feedings 6. GI and DVT prophylaxis Discharge Plan: Home Plan to discharge in: Greater than 2 days - Advance Directives Does patient have a Living Will: No Does patient have a Durable POA for Healthcare: Yes - Code Status/Comfort Care Code Status: Full Code Critical Care: Yes Time Spent Managing PTS Care (In Minutes): 35
--- NOTE | 2020-10-05 08:30 | RAD REPORT ---
EXAM DESCRIPTION: Marti Single View10/05/2020 6:40 am CLINICAL HISTORY: Pneumonia COMPARISON: October 04 FINDINGS: Mild improvement in the right and no significant change in the left pulmonary opacities li anna pneumonia Heart remains enlarged. PICC line and tracheostomy tubes in good position. Feeding tube within the mi d to distal stomach
--- NOTE | 2020-10-05 08:38 | P.PN ---
Date of Service: 10/05/20 Subjective No significant changes. Chest x-ray does show some improvement. Spoke with family regarding patient's current clinical status. Still requiring large amount of oxygenation. Most likely blood is from the or pharyngeal region. Does not appear to be Pulmonary hemorrhaging. Hemoglobin remains stable Review of Systems is unable to be obtained Physical Examination - Vital Signs Reviewed - Physical Exam General: Other (Intubated and sedated) HEENT: Other (ET tube and NG tube in place) Respiratory: Diminished, Crackles/rales Cardiovascular: Regular rate/rhythm, Normal S1 S2, No murmurs Musculoskeletal: No clubbing, Swelling Integumentary: Other (With crepitus) Neurological: Other (Difficult to examine) Assessment & Plan - Problems (Diagnosis) (1) Acute respiratory failure due to COVID-19 Current Visit: Yes Status: Acute (2) History of chronic pancreatitis Current Visit: Yes Status: Acute (3) Cirrhosis of liver Current Visit: Yes Status: Chronic Qualifiers: Hepatic cirrhosis type: unspecified hepatic cirrhosis Ascites presence: with ascites Qualified Code(s): K74.60 - Unspecified cirrhosis of liver; R18.8 - Other ascites (4) Hypertension Current Visit: Yes Status: Chronic Qualifiers: Hypertension type: essential hypertension Qualified Code(s): I10 - Essential (primary) hypertension (5) Diabetes Current Visit: No Status: Acute Qualifiers: Diabetes mellitus type: type 2 Diabetes mellitus alf insulin use: with alf use Diabetes mellitus complication status: without complication Qualified Code(s): E11.9 - Type 2 diabetes mellitus without complications; 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 Continue with monitoring neurologic status; EEG scheduled for today 2. Continue vent management; trach care 3. Chest x-ray with continued improvement; continue to monitor 4. Discuss with family regarding long-term plan of care 5. Continue with tube feedings 6. GI and DVT prophylaxis Discharge Plan: Home Plan to discharge in: Greater than 2 days - Advance Directives Does patient have a Living Will: No Does patient have a Durable POA for Healthcare: Yes - Code Status/Comfort Care Code Status: Full Code Critical Care: Yes Time Spent Managing PTS Care (In Minutes): 35
[2020-10-05] MEDS: FLUCONAZOLE 100 MG TAB PO SCH (08:50)
[2020-10-05] MEDS: INSULIN GLARGINE 100 UNITS/ML SQ SCH ×2 (08:50→21:03)
[2020-10-05] MEDS: VITAMIN D 1000 UNIT TAB PO SCH (08:50)
[2020-10-05] MEDS: METHYLPREDNISOLONE 40 MG INJ IV SCH ×2 (08:50→21:02)
[2020-10-05] MEDS: FAMOTIDINE 20 MG TAB PO SCH ×2 (08:50→21:02)
[2020-10-05] MEDS: THIAMINE 200 MG/2 ML INJ IVP SCH ×2 (08:50→21:02)
[2020-10-05] MEDS: ENOXAPARIN 40 MG/0.4 ML SQ SCH (08:51)
[2020-10-05] MEDS: DOXYCYCLINE 100 MG CAP PO SCH ×2 (08:52→21:01)
[2020-10-06] MEDS: propofoL 1,000 MG/100 ML VIAL IV PRN
[2020-10-06 05:35] LABS: Absolute Lymphocytes (CBC) 0.5 K/uL (0.7-4.9); Basophils % 0.2 % (0-1.3); Hematocrit 25.3 % (36.0-45.0); Lymphocytes % 10.1 % (15.3-44.8); MPV 11.3 fL (7.6-11.3); RBC Red Blood Cell Count 2.91 M/uL (3.86-4.86)
[2020-10-06 05:38] LABS: Arterial Blood Carboxyhemoglob 1.7 % (0-1.5); Blood Gas Oxyhemoglobin 87.5 % (94-97); Blood O2 Saturation 89.7 % (92-98.5)
[2020-10-06] MEDS: HYDROMORPHONE HCL 2 MG/ML inj IV PRN ×3 (05:45→22:34)
[2020-10-06 05:53] LABS: ALT/SGPT 75 U/L (12-78); AST/SGOT 55 U/L (15-37); Albumin 1.4 g/dL (3.4-5.0); Alkaline Phosphatase 233 U/L (45-117); BUN Blood Urea Nitrogen 74 mg/dL (7-18); Bicarbonate 30 mmol/L (21-32); Bilirubin Total 1.1 mg/dL (0.2-1.0); Ferritin 97.9 ng/mL (8-388); Glucose Level 187 mg/dL (74-106); Magnesium 2.1 mg/dL (1.8-2.4); Potassium 4.2 mmol/L (3.5-5.1); Protein, Total 5.2 g/dL (6.4-8.2); Sodium Level 135 mmol/L (136-145)
[2020-10-06] MEDS: METOPROLOL TAR 25 MG TAB PO SCH ×2 (06:00→17:48)
[2020-10-06] MEDS: INSULIN -REGULAR HUMAN 50 UNIT/0.5 ML ML SQ SCH ×5 (06:24→23:37)
[2020-10-06] MEDS: INSULIN GLARGINE 100 UNITS/ML SQ SCH ×2 (08:22→20:28)
--- NOTE | 2020-10-06 08:25 | RAD REPORT ---
EXAM DESCRIPTION: Marti Single View10/06/2020 6:15 am CLINICAL HISTORY: Pneumonia COMPARISON: October 05, 2020 FINDINGS: Mild improvement in left and no significant change in right pulmonary opacities The heart remains enlarged. PICC line in place. Feeding tube within the stomach. Tracheostomy tube in place. IMPRESSION: Mild improvement in right and no significant change in right pulmonary opacities
[2020-10-06 09:17] LABS: Anisocytosis 1+; Basophilic Stippling 1+; Blood Morphology Comment NOTED (NOT SEEN); Platelet Estimate DECR
[2020-10-06] MEDS: ENOXAPARIN 40 MG/0.4 ML SQ SCH (10:26)
[2020-10-06] MEDS: FLUCONAZOLE 100 MG TAB PO SCH (10:28)
[2020-10-06] MEDS: METHYLPREDNISOLONE 40 MG INJ IV SCH ×2 (10:28→20:29)
[2020-10-06] MEDS: THIAMINE 200 MG/2 ML INJ IVP SCH ×2 (10:28→20:29)
[2020-10-06] MEDS: VITAMIN D 1000 UNIT TAB PO SCH (10:28)
[2020-10-06] MEDS: FAMOTIDINE 20 MG TAB PO SCH ×2 (10:28→20:29)
[2020-10-06] MEDS: DOXYCYCLINE 100 MG CAP PO SCH ×2 (10:29→20:29)
[2020-10-07] MEDS: HYDROMORPHONE HCL 2 MG/ML inj IV PRN ×4 (02:59→23:26)
[2020-10-07 05:18] LABS: Absolute Lymphocytes (CBC) 0.4 K/uL (0.7-4.9); Basophils % 0.4 % (0-1.3); Hematocrit 25.2 % (36.0-45.0); Lymphocytes % 7.8 % (15.3-44.8); MPV 11.5 fL (7.6-11.3); RBC Red Blood Cell Count 2.84 M/uL (3.86-4.86)
--- NOTE | 2020-10-07 05:24 | P.PN ---
Date of Service: 10/06/20 Subjective Continuing to slowly wean down on the FiO2. Updating family. Prognosis is poor. EEG pending. Patient not really waking up even after we turn off the sedation. Will re-attempt LTAC placement once FiO2 requirements are 50%. Persistent pneumomediastinum and subcutaneous emphysema with no significant changes Review of Systems is unable to be obtained Physical Examination - Vital Signs Reviewed - Physical Exam General: Other (Intubated and sedated) HEENT: Other (ET tube and NG tube in place) Respiratory: Diminished, Crackles/rales Cardiovascular: Regular rate/rhythm, Normal S1 S2, No murmurs Musculoskeletal: No clubbing, Swelling Integumentary: Other (With crepitus) Neurological: Other (Difficult to examine-maintains a gag reflex but does not respond to pain; does not open her eyes even after sedation is stopped) Assessment & Plan - Problems (Diagnosis) (1) Acute respiratory failure due to COVID-19 Current Visit: Yes Status: Acute (2) History of chronic pancreatitis Current Visit: Yes Status: Acute (3) Cirrhosis of liver Current Visit: Yes Status: Chronic Qualifiers: Hepatic cirrhosis type: unspecified hepatic cirrhosis Ascites presence: with ascites Qualified Code(s): K74.60 - Unspecified cirrhosis of liver; R18.8 - Other ascites (4) Hypertension Current Visit: Yes Status: Chronic Qualifiers: Hypertension type: essential hypertension Qualified Code(s): I10 - Essential (primary) hypertension (5) Diabetes Current Visit: No Status: Acute Qualifiers: Diabetes mellitus type: type 2 Diabetes mellitus snf insulin use: with long term acute care registered nurse use Diabetes mellitus complication status: without complication Qualified Code(s): E11.9 - Type 2 diabetes mellitus without complications; 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 Continue with monitoring neurologic status; EEG results pending 2. Continue vent management; trach care; blood in the oralpharyngeal region is cleared up 3. Chest x-ray with continued improvement; continue to monitor 4. Discuss with family regarding long-term plan of care 5. Continue with tube feedings 6. GI and DVT prophylaxis Discharge Plan: Home Plan to discharge in: Greater than 2 days - Advance Directives Does patient have a Living Will: No Does patient have a Durable POA for Healthcare: Yes - Code Status/Comfort Care Code Status: Full Code Critical Care: Yes Time Spent Managing PTS Care (In Minutes): 35
[2020-10-07] MEDS: METOPROLOL TAR 25 MG TAB PO SCH ×2 (05:39→18:00)
[2020-10-07 05:47] LABS: Arterial Blood Carboxyhemoglob 1.8 % (0-1.5); Blood Gas Oxyhemoglobin 96.2 % (94-97); Blood O2 Saturation 98.7 % (92-98.5)
[2020-10-07] MEDS: INSULIN -REGULAR HUMAN 50 UNIT/0.5 ML ML SQ SCH ×3 (06:00→17:34)
[2020-10-07 06:23] LABS: ALT/SGPT 73 U/L (12-78); AST/SGOT 50 U/L (15-37); Albumin 1.4 g/dL (3.4-5.0); Alkaline Phosphatase 238 U/L (45-117); BUN Blood Urea Nitrogen 72 mg/dL (7-18); Bicarbonate 31 mmol/L (21-32); Ferritin 91.4 ng/mL (8-388); Glucose Level 135 mg/dL (74-106); Potassium 4.4 mmol/L (3.5-5.1); Sodium Level 138 mmol/L (136-145)
[2020-10-07] MEDS: FLUCONAZOLE 100 MG TAB PO SCH (08:09)
[2020-10-07] MEDS: THIAMINE 200 MG/2 ML INJ IVP SCH ×2 (08:09→19:52)
[2020-10-07] MEDS: METHYLPREDNISOLONE 40 MG INJ IV SCH ×2 (08:09→19:50)
[2020-10-07] MEDS: VITAMIN D 1000 UNIT TAB PO SCH (08:09)
[2020-10-07] MEDS: FAMOTIDINE 20 MG TAB PO SCH ×2 (08:09→19:49)
[2020-10-07] MEDS: ENOXAPARIN 40 MG/0.4 ML SQ SCH (08:09)
[2020-10-07] MEDS: INSULIN GLARGINE 100 UNITS/ML SQ SCH ×2 (08:11→21:43)
[2020-10-07] MEDS: DOXYCYCLINE 100 MG CAP PO SCH (08:12)
--- NOTE | 2020-10-07 08:25 | P.PN ---
Subjective Date of Service: 10/07/20 Primary Care Provider: Dr. Mathis Chief Complaint: Respiratory failure Subjective: No new changes Physical Examination - Vital Signs Temperature: 97.1 F Blood Pressure: 101/60 Pulse: 88 Respirations: 25 Pulse Ox (%): 96 - Studies Medications List Reviewed: Yes Assessment And Plan Physician Review Additional Text: Physical exam: Patient remains intubated with some sedation. No significant response to agitation. On 75 % Fi02. Neck: Tracheostomy in place. Less serous drainage noted from the tracheostomy. No significant erythema. Heart: Regular rate Lungs: Patient on ventilator. FiO2 at 75% % Abdomen: Soft Extremities: No focal deficits Impression: Dyspnea secondary to acute respiratory failure with acute respiratory syndrome related to bilateral COVID 19 pneumonia status post tracheostomy 09/23 COVID 19 Encephalopathy Diabetes mellitus type 2 with hyperglycemia Hypertension Anemia of chronic disease Atrial fibrillation paroxysmal UTI, urine culture positive for Enterococcus Acute renal insufficiency with hypernatremia Thrombocytopenia likely inflammatory Plan: Dyspnea secondary to acute respiratory failure with acute respiratory syndrome related to bilateral COVID 19 pneumonia status post tracheostomy 09/23: Patient remains intubated. Some sedation still required for agitation. Patient currently on 75% Fi02. Hemoglobin low compared to yesterday. Will repeat to confirm. If less than 7.5 will transfuse 1 unit of blood. Continue with high- dose steroids today. Continue with IV antibiotic therapy and antifungal. Continue to wean off ventilator. Hopefully the patient will start to be come more alert and cooperative with high-dose steroids. If patient able to get below 60% Fi02 then will proceed with appeal for long-term acute care facility placement. Will continue to discuss with family. I will turn the service over to the hospital team tomorrow. I will go plan of care with him. COVID 19 encephalopathy: Continue with high dose steroid. Case discussed with Neurology who recommended high dose steroid. Await to see her response. Diabetes mellitus type 2 with hyperglycemia: Continue to adjust Lantus for better control. Sliding scale in place. Hypertension: Patient remains in normal rhythm. Continue metoprolol. Hold parameters in place. Anemia of chronic disease: Will monitor closely. Atrial fibrillation paroxysmall: No further AFib noted. Patient remains in normal rhythm. Patient remains on metoprolol. UTI, urine culture positive for Enterococcus: Patient finish course of medication. Continue with Diflucan. Acute renal insufficiency with hypernatremia: Water flushes in place. Will discontinue desmopressin due to no further hypernatremic. Will discuss with pulmonology. Thrombocytopenia likely inflammatory: Continue to monitor closely.
[2020-10-07] MEDS: propofoL 1,000 MG/100 ML VIAL IV PRN ×2 (08:29→23:26)
--- NOTE | 2020-10-07 08:40 | P.PN ---
Date of Service: 10/07/20 Subjective still very much needing sedation. oxygen requirement is better today. Continuing to slowly wean down on the FiO2. Updated family on her condition. Prognosis is poor. EEG pending. pending LTAC placement. Review of Systems is unable to be obtained Physical Examination - Vital Signs Reviewed - Physical Exam General: Other (Intubated and sedated) HEENT: Other (ET tube and NG tube in place) Respiratory: Diminished, Crackles/rales Cardiovascular: Regular rate/rhythm, Normal S1 S2, No murmurs Musculoskeletal: No clubbing, Swelling Integumentary: Other (With crepitus) Neurological: sedated. Assessment & Plan - Problems (Diagnosis) (1) Acute respiratory failure due to COVID-19 Current Visit: Yes Status: Acute (2) History of chronic pancreatitis Current Visit: Yes Status: Acute (3) Cirrhosis of liver Current Visit: Yes Status: Chronic Qualifiers: Hepatic cirrhosis type: unspecified hepatic cirrhosis Ascites presence: with ascites Qualified Code(s): K74.60 - Unspecified cirrhosis of liver; R18.8 - Other ascites (4) Hypertension Current Visit: Yes Status: Chronic Qualifiers: Hypertension type: essential hypertension Qualified Code(s): I10 - Essential (primary) hypertension (5) Diabetes Current Visit: No Status: Acute Qualifiers: Diabetes mellitus type: type 2 Diabetes mellitus correction insulin use: with correction use Diabetes mellitus complication status: without complication Qualified Code(s): E11.9 - Type 2 diabetes mellitus without complications; 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 Continue with monitoring neurologic status; EEG results pending 2. Continue vent management; trach care. 3. Chest x-ray with continued improvement; continue to monitor 4. Discuss with family regarding long-term plan of care 5. Continue with tube feedings 6. GI and DVT prophylaxis Discharge Plan: LTAC. Plan to discharge in: Greater than 2 days - Advance Directives Does patient have a Living Will: No Does patient have a Durable POA for Healthcare: Yes - Code Status/Comfort Care Code Status: Full Code Critical Care: Yes Time Spent Managing PTS Care (In Minutes): 30
--- NOTE | 2020-10-07 11:35 | P.PN ---
Subjective Date of Service: 10/07/20 Primary Care Provider: Dr. Mathis Chief Complaint: Respiratory failure No change patient is unresponsive oxygenation has improved Review of Systems is unable to be obtained Physical Examination - Vital Signs Temperature: 96.8 F Blood Pressure: 111/54 Pulse: 82 Respirations: 19 Pulse Ox (%): 94 - Physical Exam General: Comatose Respiratory: Clear to auscultation bilaterally Cardiovascular: Edema - Studies Medications List Reviewed: Yes Assessment & Plan - Problems (Diagnosis) (1) Acute respiratory failure due to severe acute respiratory syndrome coronavirus 2 (SARS-CoV-2) infection Current Visit: Yes Status: Acute Plan: Respiratory failure oxygenation is improving patient has encephalopathy as been unresponsive acquiring low-dose of 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
[2020-10-07] MEDS ORDERED: MIDAZOLAM HCL 100 MG in NA CHLORIDE 0.9% 80 ML IV PRN (12:33)
[2020-10-07] MEDS: LORazepam 2 MG/ML VIAL IV PRN (13:23)
--- NOTE | 2020-10-07 13:38 | EEG ---
CHART: [id number] TEST ID#: [id number] DATE OF STUDY: 10/05/2020 THE EEG WAS RECORDED [place] IN THE ICU ON A 14 CHANNEL MACHINE. ELECTRODES WERE APPLIED IN THE USUAL MANNER USING THE INTERNATIONAL 10-20 SYSTEM. THE EEG CONSISTS OF NEAR CONTINUOUS 8.5 HZ ACTIVITY DIFFUSELY EXPRESSED IN ALL REGIONS WITH LITTLE TO NO REACTIVITY. MODERATE VOLTAGE 1.5-2 HZ ACTIVITY IS SUPERIMPOSED ON THE FASTER 8.5 HZ ACTIVITY. HYPERVENTILATION WAS NOT PERFORMED. PHOTIC STIMULATION WAS NOT PERFORMED. IMPRESSION: THIS IS A SEVERELY ABNORMAL EEG DUE TO NEAR CONTINUOUS ALPHA (8.5 HZ) ACTIVITY EXPRESSED IN ALL REGIONS WITH SUPERIMPOSED 1.5-2 HZ ACTIVITY. THE EEF IS NON-REACTIVE. THESE FINDING ARE CONSISTENT WITH ALPHA COMA PATTERN CAN BE SEEN IN COVID-19 ENCEPHALOPATHY.
[2020-10-07] MEDS ORDERED: ALBUTEROL 2.5 MG/3 ML NEB SOL NEB PRN (14:43)
[2020-10-07] MEDS: levoFLOXacin 500 MG TAB PO SCH (15:35)
[2020-10-08 05:13] LABS: Absolute Lymphocytes (CBC) 0.5 K/uL (0.7-4.9); Basophils % 0.2 % (0-1.3); Hematocrit 22.7 % (36.0-45.0); Lymphocytes % 11.6 % (15.3-44.8); MPV 11.4 fL (7.6-11.3); RBC Red Blood Cell Count 2.54 M/uL (3.86-4.86)
[2020-10-08] MEDS: INSULIN -REGULAR HUMAN 50 UNIT/0.5 ML ML SQ SCH ×4 (05:26→17:08)
[2020-10-08 05:45] LABS: ALT/SGPT 66 U/L (12-78); AST/SGOT 40 U/L (15-37); Albumin 1.3 g/dL (3.4-5.0); Alkaline Phosphatase 185 U/L (45-117); BUN Blood Urea Nitrogen 78 mg/dL (7-18); Bicarbonate 30 mmol/L (21-32); Bilirubin Total 0.8 mg/dL (0.2-1.0); Ferritin 87.7 ng/mL (8-388); Glucose Level 118 mg/dL (74-106); Magnesium 1.9 mg/dL (1.8-2.4); Potassium 4.3 mmol/L (3.5-5.1); Prealbumin 12.1 mg/dL (20-40); Protein, Total 4.6 g/dL (6.4-8.2); Sodium Level 137 mmol/L (136-145); Thyroid Stimulating Hormone 0.009 uIU/mL (0.360-3.740)
[2020-10-08] MEDS: METOPROLOL TAR 25 MG TAB PO SCH ×2 (06:10→18:20)
[2020-10-08] MEDS: METHYLPREDNISOLONE 40 MG INJ IV SCH ×2 (09:04→20:40)
[2020-10-08] MEDS: FLUCONAZOLE 100 MG TAB PO SCH (09:05)
[2020-10-08] MEDS: levoFLOXacin 500 MG TAB PO SCH (09:05)
[2020-10-08] MEDS: ENOXAPARIN 40 MG/0.4 ML SQ SCH (09:05)
[2020-10-08] MEDS: VITAMIN D 1000 UNIT TAB PO SCH (09:05)
[2020-10-08] MEDS: FAMOTIDINE 20 MG TAB PO SCH ×2 (09:05→20:41)
[2020-10-08] MEDS: propofoL 1,000 MG/100 ML VIAL IV PRN ×2 (09:05→19:40)
[2020-10-08] MEDS: THIAMINE 200 MG/2 ML INJ IVP SCH ×2 (09:05→20:40)
[2020-10-08] MEDS: INSULIN GLARGINE 100 UNITS/ML SQ SCH ×2 (09:06→20:41)
--- NOTE | 2020-10-08 09:35 | P.PN ---
Subjective Date of Service: 10/08/20 Primary Care Provider: Dr. Mathis Chief Complaint: Respiratory failure Subjective: No new changes Physical Examination - Vital Signs Temperature: 97.4 F Blood Pressure: 103/60 Pulse: 87 Respirations: 25 Pulse Ox (%): 98 - Studies Laboratory Last Values WBC 7.50 K/uL (4.3-10.9) 09/08/20 10:31 RBC 3.68 M/uL (3.86-4.86) L 09/08/20 10:31 Hgb 10.9 g/dL (12.0-15.0) L 09/08/20 10:31 Hct 32.1 % (36.0-45.0) L 09/08/20 10:31 MCV 87.4 fL (80-100) D 09/08/20 10:31 MCH 29.8 pg (27.0-35.0) 09/08/20 10:31 MCHC 34.1 g/dL (32.0-36.0) 09/08/20 10:31 RDW 16.8 % (12.1-15.2) H 09/08/20 10:31 Plt Count 110 K/uL (152-406) L 09/08/20 10:31 MPV 9.9 fL (7.6-11.3) 09/08/20 10:31 Neutrophils % 63.0 % (41.7-73.7) 09/08/20 10:31 Lymphocytes % 25.3 % (15.3-44.8) 09/08/20 10:31 Monocytes % 8.6 % (3.3-12.3) 09/08/20 10:31 Eosinophils % 2.3 % (0-4.4) 09/08/20 10:31 Basophils % 0.8 % (0-1.3) 09/08/20 10:31 Absolute Neutrophils 4.7 K/uL (1.8-8.0) 09/08/20 10:31 Absolute Lymphocytes 1.9 K/uL (0.7-4.9) 09/08/20 10:31 Absolute Monocytes 0.6 K/uL (0.1-1.3) 09/08/20 10:31 Absolute Eosinophils 0.2 K/uL (0-0.5) 09/08/20 10:31 Absolute Basophils 0.1 K/uL (0-0.5) 09/08/20 10:31 PT 16.0 SECONDS (9.5-12.5) H 09/08/20 10:31 INR 1.39 09/08/20 10:31 APTT 25.3 SECONDS (24.3-36.9) 09/08/20 10:31 Sodium 137 mmol/L (136-145) 09/08/20 10:31 Potassium 3.9 mmol/L (3.5-5.1) 09/08/20 10:31 Chloride 102 mmol/L (98-107) 09/08/20 10:31 Carbon Dioxide 30 mmol/L (21-32) 09/08/20 10:31 BUN 16 mg/dL (7-18) 09/08/20 10:31 Creatinine 0.66 mg/dL (0.55-1.3) 09/08/20 10:31 Estimated GFR 87 mL/min (=/>90) L 09/08/20 10:31 Glucose 183 mg/dL (74-106) H 09/08/20 10:31 POC Glucose 166 mg/dL (65-120) H 09/08/20 10:34 Lactic Acid 1.6 mmol/L (0.4-2.0) 09/08/20 10:31 Calcium 8.0 mg/dL (8.5-10.1) L 09/08/20 10:31 Total Bilirubin 1.0 mg/dL (0.2-1.0) 09/08/20 10:31 Direct Bilirubin 0.3 mg/dL (0-0.2) H 09/08/20 10:31 AST 32 U/L (15-37) 09/08/20 10:31 ALT 41 U/L (12-78) 09/08/20 10:31 Alkaline Phosphatase 169 U/L (45-117) H 09/08/20 10:31 Creatine Kinase 51 U/L (26-192) 09/08/20 10:31 CK-MB (CK-2) 1.4 ng/mL (0.3-3.6) 09/08/20 10:31 Rapid Troponin I < 0.02 ng/mL (0.0-0.045) 09/08/20 10:31 Troponin I 0.02 ng/mL (0.0-0.045) 09/08/20 15:14 Serum Total Protein 6.3 g/dL (6.4-8.2) L 09/08/20 10:31 Albumin 2.3 g/dL (3.4-5.0) L 09/08/20 10:31 Globulin 4.0 g/dL (2.3-3.5) H 09/08/20 10:31 Albumin/Globulin Ratio 0.6 (1.1-1.8) L 09/08/20 10:31 Amylase 34 U/L (25-115) 09/08/20 10:31 Lipase 131 U/L (73-393) 09/08/20 10:31 Procalcitonin 0.10 ng/mL (<0.050) H 09/08/20 10:31 Urine pH 6.0 (5.0-7.0) 09/08/20 14:41 Ur Specific [place] 1.015 (1.005-1.030) 09/08/20 14:41 Glucose (UA)(Auto) Negative (NEG) 09/08/20 14:41 Urine Ketones Trace (NEG) 09/08/20 14:41 Urine Blood 2+ (NEG) H 09/08/20 14:41 Urine Nitrite Negative (NEG) 09/08/20 14:41 Ur Leukocyte Esterase 1+ (NEG) H 09/08/20 14:41 Urine RBC <5 /HPF (NONE SEEN) 09/08/20 14:35 Urine WBC 5-10 /HPF (<5) H 09/08/20 14:35 Ur Squamous Epith Cells 10-20 /HPF (NONE SEEN) H 09/08/20 14:35 Urine Bacteria <20 /HPF (<20) 09/08/20 14:35 Urine Mucus 1+ /HPF (NONE SEEN) 09/08/20 14:35 Urine Culture Reflexed Reflexed 09/08/20 14:35 Urine Total Protein Negative (NEG) 09/08/20 14:41 Medications List Reviewed: Yes Assessment And Plan Discharge Plan: LTAC Physician Review Additional Text: Brief HPI -Admitted for Covid pneumonia , complicated with prolonged resp failure requiring trach -still on vent -now unresponsive and EEG showing findings consistent with Covid encephalopathy Subjective -no new complains today still on Propofol gtt making urine but still edematous Objective see Vitals General-obese elderly female , intubated , on vent fi02 60% HEENT -trach insitu , on vent , TELMA , dry oral mucosa CV-SIS2, irregular , on amio Resp-dec BS bases GI-full, soft , bs+ JAIME- marked anasarca++ Integumentary -no skin rash Neuro-Unresponsive Labs reviewed PLAN Acute resp failure Covid Pneumonia Covid Encephalopathy Fluid overload with anasarca Liver cirrhosis history Hypoalbuminemia Anemia of acute illness - Will start albumin diuresis to mobilize fluid status -continue to wean 02 and off vent - Given unresponsive status , consider dc Propofol gtt -will discuss with Pulmonary - low h/h at 7.3 may be due to hemodilution , follow with diuresis -may need PRBC prn h/h < 7 -continue tube feeding with high protein intake - continue plan for LTAC Placement Time Spent Managing PTS Care (In Minutes): 35
[2020-10-08] MEDS ORDERED: ALBUMIN HUMAN 25% 100 ML IV ONE (09:37)
[2020-10-08] MEDS ORDERED: NA CHLORIDE 0.9% 50 ML ONE (11:06)
[2020-10-08] MEDS: FUROSEMIDE 40 MG/4 ML VIAL IV SCH ×2 (15:38→17:00)
[2020-10-08 19:21] LABS: Hematocrit 31.8 % (36.0-45.0)
[2020-10-08] MEDS: HYDROMORPHONE HCL 2 MG/ML inj IV PRN (22:47)
[2020-10-09] MEDS: propofoL 1,000 MG/100 ML VIAL IV PRN ×2 (04:00→11:38)
[2020-10-09 05:39] LABS: Absolute Lymphocytes (CBC) 0.3 K/uL (0.7-4.9); Basophils % 0.2 % (0-1.3); Hematocrit 28.2 % (36.0-45.0); Lymphocytes % 10.2 % (15.3-44.8); MPV 11.1 fL (7.6-11.3); RBC Red Blood Cell Count 3.18 M/uL (3.86-4.86)
[2020-10-09] MEDS: HYDROMORPHONE HCL 2 MG/ML inj IV PRN ×4 (05:52→22:41)
[2020-10-09] MEDS: METOPROLOL TAR 25 MG TAB PO SCH ×2 (06:00→18:08)
[2020-10-09] MEDS: INSULIN -REGULAR HUMAN 50 UNIT/0.5 ML ML SQ SCH ×4 (06:00→18:00)
[2020-10-09 06:01] LABS: ALT/SGPT 78 U/L (12-78); AST/SGOT 57 U/L (15-37); Albumin 1.5 g/dL (3.4-5.0); Alkaline Phosphatase 246 U/L (45-117); BUN Blood Urea Nitrogen 68 mg/dL (7-18); Bicarbonate 32 mmol/L (21-32); Glucose Level 130 mg/dL (74-106); Potassium 4.3 mmol/L (3.5-5.1); Sodium Level 137 mmol/L (136-145)
[2020-10-09 07:32] LABS: Platelet Estimate DECR
[2020-10-09 07:33] LABS: Anisocytosis SLIGHT; Blood Morphology Comment NOTED (NOT SEEN); Polychromasia SLIGHT
[2020-10-09] MEDS: INSULIN GLARGINE 100 UNITS/ML SQ SCH ×2 (08:50→20:34)
[2020-10-09] MEDS: METHYLPREDNISOLONE 40 MG INJ IV SCH ×2 (08:57→20:35)
[2020-10-09] MEDS: THIAMINE 200 MG/2 ML INJ IVP SCH ×2 (08:58→20:35)
[2020-10-09] MEDS: FUROSEMIDE 40 MG/4 ML VIAL IV SCH ×2 (08:58→18:09)
[2020-10-09] MEDS: VITAMIN D 1000 UNIT TAB PO SCH (08:58)
[2020-10-09] MEDS: ENOXAPARIN 40 MG/0.4 ML SQ SCH (08:59)
[2020-10-09] MEDS: FAMOTIDINE 20 MG TAB PO SCH ×2 (08:59→20:35)
[2020-10-09] MEDS: FLUCONAZOLE 100 MG TAB PO SCH (08:59)
[2020-10-09] MEDS: levoFLOXacin 500 MG TAB PO SCH (08:59)
--- NOTE | 2020-10-09 12:17 | P.PN ---
Subjective Date of Service: 10/09/20 Primary Care Provider: Dr. Mathis Chief Complaint: Respiratory failure Subjective: No new changes (-still obtunded) Physical Examination - Vital Signs Temperature: 97 F Blood Pressure: 93/54 Pulse: 65 Respirations: 30 Pulse Ox (%): 96 - Studies Medications List Reviewed: Yes Assessment And Plan Discharge Plan: Home Plan to discharge in: 24 Hours Physician Review: Patient Assessed, Agree with Above Assessment and Plan Physician Review Additional Text: Brief HPI - Admitted for Covid pneumonia , complicated with prolonged resp failure requiring trach - still on vent - Family with unresponsive/ EEG showing findings consistent with Covid encephalopathy Subjective - No new issues today - family discussed with yesterday , neuro called Objective -see Vitals General-obese elderly female , intubated , on vent fi02 60% HEENT -trach insitu , on vent , TELMA , dry oral mucosa CV-SIS2, irregular , on amio Resp-dec BS bases GI-full, soft , bs+ JAIME- Improving anasarca++ Integumentary -no skin rash Neuro- Unresponsive Labs reviewed IMPRESSION Acute resp failure Covid Pneumonia Covid Encephalopathy Fluid overload with Anasarca Liver cirrhosis history Hypoalbuminemia Anemia of acute illness PLAN - continue gentle diuresis to mobilize fluid status - continue to wean 02 and off vent - Nursing staff worried about hyperventilating with low tidal volume off propofol - will reduce Propofol to 10mcg/hr - Low h/h stable , may be due to hemodilution - May need PRBC prn h/h < 7 - continue tube feeding with high protein intake - continue plan for LTAC Placement
[2020-10-10] MEDS: INSULIN -REGULAR HUMAN 50 UNIT/0.5 ML ML SQ SCH ×4 (00:01→17:44)
[2020-10-10] MEDS: HYDROMORPHONE HCL 2 MG/ML inj IV PRN ×2 (03:54→12:07)
[2020-10-10 04:47] LABS: Absolute Lymphocytes (CBC) 0.3 K/uL (0.7-4.9); Basophils % 0.3 % (0-1.3); Hematocrit 26.1 % (36.0-45.0); MPV 11.1 fL (7.6-11.3); RBC Red Blood Cell Count 2.92 M/uL (3.86-4.86)
[2020-10-10 05:17] LABS: ALT/SGPT 73 U/L (12-78); AST/SGOT 38 U/L (15-37); Albumin 1.4 g/dL (3.4-5.0); Alkaline Phosphatase 217 U/L (45-117); BUN Blood Urea Nitrogen 70 mg/dL (7-18); Bicarbonate 32 mmol/L (21-32); Bilirubin Total 0.7 mg/dL (0.2-1.0); Ferritin 92.1 ng/mL (8-388); Glucose Level 205 mg/dL (74-106); Potassium 4.1 mmol/L (3.5-5.1); Protein, Total 4.7 g/dL (6.4-8.2); Sodium Level 136 mmol/L (136-145)
[2020-10-10] MEDS: METOPROLOL TAR 25 MG TAB PO SCH ×2 (06:09→18:00)
[2020-10-10] MEDS: INSULIN GLARGINE 100 UNITS/ML SQ SCH ×3 (09:00→20:28)
[2020-10-10] MEDS: levoFLOXacin 500 MG TAB PO SCH ×2 (09:00→11:00)
[2020-10-10] MEDS: ENOXAPARIN 40 MG/0.4 ML SQ SCH ×2 (09:00→10:58)
[2020-10-10] MEDS: VITAMIN D 1000 UNIT TAB PO SCH (09:00)
[2020-10-10] MEDS: THIAMINE 200 MG/2 ML INJ IVP SCH ×3 (09:00→20:30)
[2020-10-10] MEDS: FUROSEMIDE 40 MG/4 ML VIAL IV SCH (09:00)
[2020-10-10] MEDS: METHYLPREDNISOLONE 40 MG INJ IV SCH (09:00)
[2020-10-10] MEDS: FAMOTIDINE 20 MG TAB PO SCH ×3 (09:00→20:30)
[2020-10-10] MEDS: FLUCONAZOLE 100 MG TAB PO SCH ×2 (09:00→11:00)
[2020-10-10] MEDS ORDERED: BENZONATATE 100 MG CAP PO PRN (10:39)
[2020-10-10] MEDS ORDERED: GLUCAGON 1 MG/VIAL IM PRN (10:39)
[2020-10-10] MEDS ORDERED: SODIUM CHLORIDE 0.9% 10ML INJ IV PRN (10:40)
[2020-10-10] MEDS ORDERED: D50W 25 GM/50 ML VIAL IV PRN (10:40)
[2020-10-10] MEDS ORDERED: LORazepam 2 MG/ML VIAL IV PRN (10:41)
[2020-10-10] MEDS ORDERED: HALOPERIDOL LACT 5 MG/ML INJ IV PRN (10:41)
[2020-10-10] MEDS ORDERED: MIDAZOLAM HCL 2 MG/2 ML INJ IV PRN (10:42)
[2020-10-10] MEDS ORDERED: CISATRACURIUM INJECTION 2 MG/ML (10 ML Vial) IV PRN (10:43)
[2020-10-10] MEDS ORDERED: METOPROLOL TARTRATE 5 MG/5 ML INJ IV PRN (10:44)
[2020-10-10] MEDS ORDERED: ALBUTEROL 2.5 MG/3 ML NEB SOL NEB PRN (10:49)
[2020-10-10] MEDS ORDERED: VITAL HP 1,000 ML BOT RTH SCH (11:00)
--- NOTE | 2020-10-10 11:43 | P.PN ---
Subjective Date of Service: 10/10/20 Primary Care Provider: Dr. Mathis Chief Complaint: Respiratory failure Patient's oxygenation is improving she still continues to remain unresponsive Review of Systems is unable to be obtained Physical Examination - Vital Signs Temperature: 97.2 F Blood Pressure: 115/98 Pulse: 101 Respirations: 30 Pulse Ox (%): 100 - Physical Exam General: Unresponsive Respiratory: Clear to auscultation bilaterally Cardiovascular: No edema, Normal S1 S2 - Studies Medications List Reviewed: Yes Assessment & Plan - Problems (Diagnosis) (1) Acute respiratory failure due to severe acute respiratory syndrome coronavirus 2 (SARS-CoV-2) infection Status: Acute Plan: Patient continues to remain unresponsive oxygenation improving Dc Lasix pancytopenia BU an elevated patient's ferritin levels are very low trial off another high dose Decadron t to see if her mental status improves prognosis very poor tracheal stoma is a gaping he ENT to evaluate Pseudomonas isolated sensitive to levofloxacin Physician Review: Patient Assessed, Agree with Above Assessment and Plan
[2020-10-10] MEDS: dexAMETHasone 4 MG/ML VIAL IV SCH ×2 (12:00→18:00)
--- NOTE | 2020-10-10 15:20 | P.PN ---
Subjective Date of Service: 10/10/20 Primary Care Provider: Dr. Mathis Chief Complaint: Respiratory failure Subjective: Other (Patient remains intubated. Some sedation still required.) Physical Examination - Vital Signs Temperature: 98.1 F Blood Pressure: 114/76 Pulse: 100 Respirations: 24 Pulse Ox (%): 91 - Studies Medications List Reviewed: Yes Assessment & Plan Discharge Plan: LTAC Plan to discharge in: Greater than 2 days Physician Review Additional Text: Physical exam: Patient remains intubated and slightly sedated. General-obese elderly female , intubated , on vent fi02 60% decreased to 50% later in the day. HEENT -trach insitu , on vent , dry oral mucosa CV-regular rate Resp-dec BS bases GI-full, soft , bs+ JAIME- Improving anasarca++ Integumentary -no skin rash Neuro- Unresponsive Labs reviewed Impression: Dyspnea secondary to acute respiratory failure with acute respiratory syndrome related to bilateral COVID 19 pneumonia status post tracheostomy 09/23 COVID 19 Encephalopathy Diabetes mellitus type 2 with hyperglycemia Hypertension Anemia of chronic disease Atrial fibrillation paroxysmal UTI, urine culture positive for Enterococcus Acute renal insufficiency with hypernatremia Thrombocytopenia likely inflammatory Plan: Dyspnea secondary to acute respiratory failure with acute respiratory syndrome related to bilateral COVID 19 pneumonia status post tracheostomy 09/23: Patient remains intubated. Still requiring some medication for sedation. FiO2 less than 60%. Pulmonology has tried to wean patient off but still not able. Medications reviewed. Will discuss further with pulmonology. Patient would benefit with long-term acute care facility placement. Will discuss with family about plan of care. COVID 19 encephalopathy: Patient was given high-dose steroids without significant change.. Diabetes mellitus type 2 with hyperglycemia: Continue to adjust Lantus for better control. Sliding scale in place. Hypertension: Patient remains in normal rhythm. Continue metoprolol. Hold parameters in place. Anemia of chronic disease: Will monitor closely. Atrial fibrillation paroxysmall: No further AFib noted. Patient remains in normal rhythm. Patient remains on metoprolol. UTI, urine culture positive for Enterococcus: Overall stable Acute renal insufficiency with hypernatremia: Overall stable Thrombocytopenia likely inflammatory: Continue to monitor closely. Time Spent Managing Pts Care (In Minutes): 55
[2020-10-10] MEDS: propofoL 1,000 MG/100 ML VIAL IV PRN (16:09)
[2020-10-10] MEDS ORDERED: FUROSEMIDE 40 MG/4 ML VIAL IV SCH (17:00)
[2020-10-10] MEDS ORDERED: METHYLPREDNISOLONE 40 MG INJ IV SCH (21:00)
[2020-10-11] MEDS: dexAMETHasone 4 MG/ML VIAL IV SCH ×5 (00:18→23:30)
[2020-10-11] MEDS: INSULIN -REGULAR HUMAN 50 UNIT/0.5 ML ML SQ SCH ×5 (00:53→23:40)
[2020-10-11] MEDS: propofoL 1,000 MG/100 ML VIAL IV PRN (03:51)
[2020-10-11] MEDS: HYDROMORPHONE HCL 2 MG/ML inj IV PRN ×5 (03:52→23:30)
[2020-10-11] MEDS: METOPROLOL TAR 25 MG TAB PO SCH ×2 (04:49→16:42)
[2020-10-11 05:15] LABS: Absolute Lymphocytes (CBC) 0.7 K/uL (0.7-4.9); Basophils % 0.6 % (0-1.3); Hematocrit 31.1 % (36.0-45.0); Lymphocytes % 7.6 % (15.3-44.8); MPV 10.9 fL (7.6-11.3); RBC Red Blood Cell Count 3.52 M/uL (3.86-4.86)
[2020-10-11 05:50] LABS: ALT/SGPT 97 U/L (12-78); AST/SGOT 63 U/L (15-37); Albumin 1.6 g/dL (3.4-5.0); Alkaline Phosphatase 376 U/L (45-117); BUN Blood Urea Nitrogen 60 mg/dL (7-18); Bicarbonate 32 mmol/L (21-32); Bilirubin Total 1.1 mg/dL (0.2-1.0); Ferritin 113.3 ng/mL (8-388); Glucose Level 162 mg/dL (74-106); Potassium 4.2 mmol/L (3.5-5.1); Protein, Total 5.3 g/dL (6.4-8.2); Sodium Level 135 mmol/L (136-145)
[2020-10-11] MEDS: THIAMINE 200 MG/2 ML INJ IVP SCH ×2 (08:29→20:59)
[2020-10-11] MEDS: VITAMIN D 1000 UNIT TAB PO SCH (08:29)
[2020-10-11] MEDS: levoFLOXacin 500 MG TAB PO SCH (08:30)
[2020-10-11] MEDS: INSULIN GLARGINE 100 UNITS/ML SQ SCH ×2 (08:30→20:58)
[2020-10-11] MEDS: FLUCONAZOLE 100 MG TAB PO SCH (08:30)
[2020-10-11] MEDS: FAMOTIDINE 20 MG TAB PO SCH ×2 (08:30→20:59)
[2020-10-11] MEDS: ENOXAPARIN 40 MG/0.4 ML SQ SCH (08:36)
[2020-10-11] MEDS ORDERED: PANTOPRAZOLE 40 MG INJ IVP SCH (09:00)
--- NOTE | 2020-10-11 11:14 | P.PN ---
Subjective Date of Service: 10/11/20 Primary Care Provider: Dr. Mathis Chief Complaint: Respiratory failure Subjective: Other (Patient remains intubated. Patient without sedation. No response to stimuli noted.) Physical Examination - Vital Signs Temperature: 97.4 F Blood Pressure: 153/70 Pulse: 92 Respirations: 98 Pulse Ox (%): 94 - Studies Medications List Reviewed: Yes Assessment & Plan Discharge Plan: LTAC Plan to discharge in: Greater than 2 days Physician Review Additional Text: Physical exam: Patient remains intubated without sedation. No response to stimuli. General-obese elderly female , intubated , on vent fi02 50% decreased to 50% later in the day. HEENT -trach insitu , on vent , dry oral mucosa CV-regular rate Resp-dec BS bases GI-full, soft , bs+ JAIME-anasarca still present. Integumentary -no skin rash Neuro- Unresponsive to pain or stimuli Labs reviewed Impression: Dyspnea secondary to acute respiratory failure with acute respiratory syndrome related to bilateral COVID 19 pneumonia status post tracheostomy 09/23 COVID 19 Encephalopathy Diabetes mellitus type 2 with hyperglycemia Hypertension Anemia of chronic disease Atrial fibrillation paroxysmal UTI, urine culture positive for Enterococcus Acute renal insufficiency with hypernatremia Thrombocytopenia likely inflammatory Plan: Dyspnea secondary to acute respiratory failure with acute respiratory syndrome related to bilateral COVID 19 pneumonia status post tracheostomy 09/23: Patient remains intubated. No response to pain or stimuli. Case discussed at length with pulmonology and neurology. From a neurology perspective, patient remains in a coma-like state. This is likely COVID-19 encephalopathy. EEG reviewed with neurology. Patient may remain in this type of state indefinitely. Pulmonology recommends to consider comfort measures. Case discussed at length with family concerning plan of care. After review with family, family still wants to pursue long-term acute care facility placement. They are not ready to withdraw care or pursue comfort measures. Continue to monitor the patient closely. Wound care consulted to address trach. Will discuss with ENT as well. COVID 19 encephalopathy: Patient was given high-dose steroids without significant change. Patient remains in a coma-like state. Neurology states this may be indefinite. Continue as above. Diabetes mellitus type 2 with hyperglycemia: Continue to adjust Lantus for better control. Sliding scale in place. Hypertension: Patient remains in normal rhythm. Continue metoprolol. Hold parameters in place. Anemia of chronic disease: Will monitor closely. Atrial fibrillation paroxysmall: No further AFib noted. Patient remains in normal rhythm. Patient remains on metoprolol. UTI, urine culture positive for Enterococcus: Overall stable Acute renal insufficiency with hypernatremia: Overall stable Thrombocytopenia likely inflammatory: Continue to monitor closely. Time Spent Managing Pts Care (In Minutes): 55
--- NOTE | 2020-10-11 12:38 | P.PN ---
Subjective Date of Service: 10/11/20 Primary Care Provider: Dr. Mathis Chief Complaint: Respiratory failure No change patient is unresponsive Review of Systems is unable to be obtained Physical Examination - Vital Signs Temperature: 97.4 F Blood Pressure: 153/70 Pulse: 92 Respirations: 98 Pulse Ox (%): 94 - Physical Exam General: Comatose Respiratory: Diminished Cardiovascular: No edema, Regular rate/rhythm - Studies Medications List Reviewed: Yes Assessment & Plan - Problems (Diagnosis) (1) Acute respiratory failure due to severe acute respiratory syndrome coronavirus 2 (SARS-CoV-2) infection Status: Acute Plan: Patient is comatose no response with the steroids will DC high-dose Decadron and change her over to low-dose by tomorrow oxygen requirements are declining patient has bronchitis with the Pseudomonas infection wound care has been consulted will try to wean her off from the ventilator may tolerate trach collar prognosis poor Physician Review: Patient Assessed, Agree with Above Assessment and Plan
--- NOTE | 2020-10-11 17:49 | P.PN ---
Date of Service: 10/11/20 Requested by primary/ICU team to evaluate trach site due to poor healing and chronic drainage from the site. As I was out of town over the weekend, I requested TSH and prealbumin to start assessment. Patient is now POD 18 from trach. 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 The sputum grew MSSA and wound (?trach) also showed MSSA on September 26. More recently, sputum culture showed Pseudomonas. The patient is currently being treated with levquin. She WBC is been normal with mild anemia and mildly decreased platelet count. Her TSH is suppressed but she is not on any thyroid medication at this time. Prealbumin is low, CRP remains high. She is on tube feeds. She continues to have mouth dryness and ulcerations and easy bleeding of the mucosal surfaces despite oral care and attempts to keep mouth closed with dressings, etc. The patient is unresponsive to voice and touch. The eyes are partially open without significant response to manual closure of the eye lids. She has an open-mouth posture with dried secretions and blood on the tongue and lips. She has mild subcutaneous emphysema of the neck. 6.[address] The wound around the trach is not nadiya. There is no significant granulation tissue. Gauze sponges at the site are partially soaked with thick [id number] drainage. With removal of the trach sponges, there is leakage of air around the trach in to the wound. Within a few moments, additional drainage is noted to run out of the wound on to the upper chest. There is a 5 mm length skin wound separate from the trach site, near midline, inferior to the trach site. There is generalized edema of the upper extremities. Poor wound healing can be associated with hypothyroidism but this patient appears to be hyperthyroid in regards to her TSH. Poor nutritional status can contribute to problems with wound healing and continued caloric replacement is in progress. Last nutrition note about 1 week ago. I recommend consultation with wound care nurse - the wound is very wet. I have used Duoderm on trach sites in the past to prevent pressure from the trach flange, but do not feel this would be useful given the amount of secretions. I am concerned about packing the wound due to potential for dislodgment of packing in to the airway. I do not see likely benefit from suture closure of the wound and am concerned that attempt might place excess tension on the skin and lead to further skin/wound breakdown. I look forward to advice from wound care regarding options for dressings that might speed healing and help to dry the site.
[2020-10-11] MEDS ORDERED: MEDIHONEY 44 ML TOPICAL TUBE TOP SCH (18:00)
[2020-10-12] MEDS: HYDROMORPHONE HCL 2 MG/ML inj IV PRN ×5 (02:33→22:55)
[2020-10-12] MEDS: METOPROLOL TAR 25 MG TAB PO SCH ×2 (05:20→17:16)
[2020-10-12] MEDS: dexAMETHasone 4 MG/ML VIAL IV SCH ×3 (05:21→19:53)
[2020-10-12] MEDS: INSULIN -REGULAR HUMAN 50 UNIT/0.5 ML ML SQ SCH ×4 (05:21→23:26)
[2020-10-12 05:28] LABS: Absolute Lymphocytes (CBC) 0.7 K/uL (0.7-4.9); Basophils % 0.4 % (0-1.3); Hematocrit 26.2 % (36.0-45.0); Lymphocytes % 10.5 % (15.3-44.8); MPV 10.7 fL (7.6-11.3); RBC Red Blood Cell Count 2.99 M/uL (3.86-4.86)
[2020-10-12 05:49] LABS: ALT/SGPT 83 U/L (12-78); AST/SGOT 50 U/L (15-37); Albumin 1.3 g/dL (3.4-5.0); Alkaline Phosphatase 272 U/L (45-117); BUN Blood Urea Nitrogen 60 mg/dL (7-18); Bicarbonate 33 mmol/L (21-32); Bilirubin Total 0.7 mg/dL (0.2-1.0); Ferritin 98.3 ng/mL (8-388); Glucose Level 126 mg/dL (74-106); Potassium 4.2 mmol/L (3.5-5.1); Protein, Total 4.8 g/dL (6.4-8.2); Sodium Level 137 mmol/L (136-145)
[2020-10-12] MEDS: THIAMINE 200 MG/2 ML INJ IVP SCH ×2 (08:23→19:52)
[2020-10-12] MEDS: VITAMIN D 1000 UNIT TAB PO SCH (08:24)
[2020-10-12] MEDS: ENOXAPARIN 40 MG/0.4 ML SQ SCH (08:24)
[2020-10-12] MEDS: FAMOTIDINE 20 MG TAB PO SCH ×2 (08:25→19:53)
[2020-10-12] MEDS: FLUCONAZOLE 100 MG TAB PO SCH (08:25)
[2020-10-12] MEDS: levoFLOXacin 500 MG TAB PO SCH (08:26)
[2020-10-12] MEDS: INSULIN GLARGINE 100 UNITS/ML SQ SCH ×2 (08:33→19:53)
[2020-10-12] MEDS ORDERED: ACETIC ACID 0.25% IRRIG IRR SCH (09:00)
[2020-10-12] MEDS: ENOXAPARIN 30 MG/0.3 ML SQ SCH (09:00)
[2020-10-12] MEDS ORDERED: ENOXAPARIN 40 MG/0.4 ML SQ SCH (09:00)
--- NOTE | 2020-10-12 09:06 | P.PN ---
Subjective Date of Service: 10/12/20 Primary Care Provider: Dr. Mathis Chief Complaint: Respiratory failure Subjective: Other (Patient remains intubated. No response to voice or pain.) Physical Examination - Vital Signs Temperature: 97.4 F Blood Pressure: 112/56 Pulse: 62 Respirations: 30 Pulse Ox (%): 93 - Studies Medications List Reviewed: Yes Assessment & Plan Discharge Plan: LTAC Plan to discharge in: Greater than 2 days Physician Review Additional Text: Physical exam: Patient remains intubated without sedation. No response to stimuli. General-obese elderly female , intubated , on vent fi02 40% HEENT -trach insitu , on vent , dry oral mucosa CV-regular rate and rhythm Resp-clear anteriorly. Decreased at the bases. GI-full, soft , bs+ JAIME-swelling to the extremities noted but improved to the lower extremity. Integumentary -dry mouth noted with some dried ulcers to the lips. Neuro- Unresponsive to pain or stimuli Labs reviewed Impression: Dyspnea secondary to acute respiratory failure with acute respiratory syndrome related to bilateral COVID 19 pneumonia status post tracheostomy 09/23 COVID 19 Encephalopathy Diabetes mellitus type 2 with hyperglycemia Hypertension Anemia of chronic disease Atrial fibrillation paroxysmal UTI, urine culture positive for Enterococcus Acute renal insufficiency with hypernatremia Thrombocytopenia likely inflammatory Plan: Dyspnea secondary to acute respiratory failure with acute respiratory syndrome related to bilateral COVID 19 pneumonia status post tracheostomy 09/23: Patient remains intubated. No sedation for the last 24 hours. We will continue to try to remain off sedation. Case discussed with pulmonology and neurology yesterday. Case also discussed with family. Patient still with COVID-19 encephalopathy. Patient in a coma-like state. Family still wants to pursue current plan of care of trying to wean off ventilator and possibly long-term acute care facility placement. No withdrawal of care or comfort measures at this time. Pulmonology plans to wean off ventilator. ENT did come by yesterday. ENT recommended wound care. Wound care to continue with current plan of care for trach. Patient remains on IV antibiotic therapy. Will decrease Lovenox. Nurses reported some robbin stool. Will monitor this closely. Hemoglobin stable at this time. Parameters in place for Lovenox. We will continue to update family. COVID 19 encephalopathy: Patient was given high-dose steroids without significant change. Patient remains in a coma-like state. Neurology states this may be indefinite. Will discuss with family. Continue with above plan of care. Will consider repeat EEG if condition changes. Diabetes mellitus type 2 with hyperglycemia: Continue to adjust Lantus for better control. Sliding scale in place. Hypertension: Patient remains in normal rhythm. Continue metoprolol. Hold parameters in place. Anemia of chronic disease: Will monitor closely. Atrial fibrillation paroxysmall: No further AFib noted. Patient remains in normal rhythm. Patient remains on metoprolol. UTI, urine culture positive for Enterococcus: Overall stable Acute renal insufficiency with hypernatremia: Overall stable Thrombocytopenia likely inflammatory: Continue to monitor closely. Overall stable. Time Spent Managing Pts Care (In Minutes): 55
[2020-10-12] MEDS: NYSTATIN 500,000 UNIT/5 ML UDC PO SCH ×3 (09:30→19:52)
[2020-10-12 09:44] LABS: Platelet Estimate DECR; Platelets, Giant PRESENT; White Blood Cell Scan OK (OK)
[2020-10-12 09:45] LABS: Blood Morphology Comment NOT SEEN (NOT SEEN)
--- NOTE | 2020-10-12 12:27 | P.PN ---
Subjective Date of Service: 10/12/20 Primary Care Provider: Dr. Mathis Chief Complaint: Respiratory failure coma Minimally responsive today patient is now off propofol severe lip ulceration Review of Systems is unable to be obtained Physical Examination - Vital Signs Temperature: 97.4 F Blood Pressure: 112/56 Pulse: 62 Respirations: 30 Pulse Ox (%): 93 - Physical Exam General: Other (Minimally responsive male open eyes to deep pain stimulation) HEENT: Atraumatic Neck: Supple Respiratory: Clear to auscultation bilaterally, Diminished Cardiovascular: No edema, Normal S1 S2 - Studies Medications List Reviewed: Yes Assessment & Plan - Problems (Diagnosis) (1) Acute respiratory failure due to severe acute respiratory syndrome coronavirus 2 (SARS-CoV-2) infection Status: Acute Plan: Minimal responsiveness patient is now off propofol would plan to wean her off from the ventilator with pressure support ventilation repeat zarate virus test oxygenation satisfactory vital signs reviewed prognosis very poor continue with Decadron for now Physician Review: Patient Assessed, Agree with Above Assessment and Plan
[2020-10-12] MEDS: ACETIC ACID 0.25% IRRIG IRR SCH (12:55)
[2020-10-12] MEDS ORDERED: ACETAMINOPHEN 325 MG TABLET FT PRN (23:27)
[2020-10-13] MEDS: HYDROMORPHONE HCL 2 MG/ML inj IV PRN ×4 (03:57→16:25)
[2020-10-13 05:43] LABS: Absolute Lymphocytes (CBC) 0.9 K/uL (0.7-4.9); Basophils % 0.2 % (0-1.3); Hematocrit 27.8 % (36.0-45.0); Lymphocytes % 11.9 % (15.3-44.8); MPV 10.8 fL (7.6-11.3); RBC Red Blood Cell Count 3.14 M/uL (3.86-4.86)
[2020-10-13 05:45] VITALS: BMI 35.4
[2020-10-13] MEDS: METOPROLOL TAR 25 MG TAB PO SCH (05:45)
[2020-10-13] MEDS: INSULIN -REGULAR HUMAN 50 UNIT/0.5 ML ML SQ SCH ×2 (05:46→12:00)
[2020-10-13 06:08] LABS: Albumin 1.4 g/dL (3.4-5.0); Bilirubin Direct 0.5 mg/dL (0-0.2); Bilirubin Total 0.9 mg/dL (0.2-1.0); C-Reactive Protein 51.5 mg/L (<3.00); Ferritin 116.1 ng/mL (8-388); Protein, Total 4.9 g/dL (6.4-8.2)
--- NOTE | 2020-10-13 08:09 | P.PN ---
Subjective Date of Service: 10/13/20 Primary Care Provider: Dr. Mathis Chief Complaint: Respiratory failure coma Subjective: Worsening Physical Examination - Vital Signs Temperature: 99.6 F Blood Pressure: 95/71 Pulse: 69 Respirations: 22 Pulse Ox (%): 92 - Studies Medications List Reviewed: Yes Assessment & Plan Discharge Plan: Other Plan to discharge in: Greater than 2 days Physician Review: (Possible hospice) Physician Review Additional Text: Physical exam: Patient remains intubated without sedation. No response to stimuli. General-obese elderly female , intubated , on vent fi02 40% HEENT -trach insitu , on vent , dry oral mucosa CV-regular rate and rhythm Resp-clear anteriorly. Decreased at the bases. GI-full, soft , bs+ JAIME-swelling to the extremities noted but improved to the lower extremity. Integumentary -dry mouth noted with some dried ulcers to the lips. Neuro- Unresponsive to pain or stimuli Labs reviewed Impression: Dyspnea secondary to acute respiratory failure with acute respiratory syndrome related to bilateral COVID 19 pneumonia status post tracheostomy 09/23 COVID 19 Encephalopathy Diabetes mellitus type 2 with hyperglycemia Hypertension Anemia of chronic disease Atrial fibrillation paroxysmal UTI, urine culture positive for Enterococcus Acute renal insufficiency with hypernatremia Thrombocytopenia likely inflammatory Plan: Dyspnea secondary to acute respiratory failure with acute respiratory syndrome related to bilateral COVID 19 pneumonia status post tracheostomy 09/23: Patient appears worse today. Blood pressure low. Pulmonology has tried to wean her off unsuccessfully. Patient with more subcu emphysema to the chest and face. Still no response to pain or stimuli. Case discussed at length with family. Family will come and evaluate patient. Will make possible decision of comfort measures and possible withdrawal of care with hospice. Await to discuss further with family. Case discussed with pulmonology. Pulmonology recommends comfort measures. Await to discuss with family in more detail. COVID 19 encephalopathy: Patient was given high-dose steroids without significant change. Patient remains in a coma-like state. Neurology states this may be indefinite. Will discuss with family. Continue with above plan of care. Will consider repeat EEG if condition changes. Diabetes mellitus type 2 with hyperglycemia: Continue to adjust Lantus for better control. Sliding scale in place. Hypertension: Patient remains in normal rhythm. Continue metoprolol. Hold parameters in place. Anemia of chronic disease: Will monitor closely. Atrial fibrillation paroxysmall: No further AFib noted. Patient remains in normal rhythm. Patient remains on metoprolol. UTI, urine culture positive for Enterococcus: Overall stable Acute renal insufficiency with hypernatremia: Overall stable Thrombocytopenia likely inflammatory: Continue to monitor closely. Overall stable. Time Spent Managing Pts Care (In Minutes): 55
--- NOTE | 2020-10-13 08:35 | RAD REPORT ---
EXAM DESCRIPTION: Marti Single View4 8:12 am CLINICAL HISTORY: Shortness of breath/subcutaneous emphysema COMPARISON: October 06, 2020 FINDINGS: Extensive subcutaneous emphysema. Pneumomediastinum is present. Bilateral pulmonary opacities appear mildly worsened. Heart is enlarged. Tracheostomy tube in place. Feeding tube within stomach IMPRESSION: Extensive subcutaneous emphysema with pneumomediastinum Mild worsening in the bilateral pulmonary opacities
[2020-10-13] MEDS: THIAMINE 200 MG/2 ML INJ IVP SCH (12:52)
[2020-10-13] MEDS: FAMOTIDINE 20 MG TAB PO SCH (12:52)
[2020-10-13] MEDS: dexAMETHasone 4 MG/ML VIAL IV SCH (12:52)
[2020-10-13] MEDS: NYSTATIN 500,000 UNIT/5 ML UDC PO SCH ×2 (12:53→13:25)
[2020-10-13] MEDS: VITAMIN D 1000 UNIT TAB PO SCH (12:53)
[2020-10-13] MEDS: FLUCONAZOLE 100 MG TAB PO SCH (12:53)
[2020-10-13] MEDS: levoFLOXacin 500 MG TAB PO SCH (12:53)
[2020-10-13] MEDS: INSULIN GLARGINE 100 UNITS/ML SQ SCH (12:54)
[2020-10-13] MEDS: ACETIC ACID 0.25% IRRIG IRR SCH (12:55)
[2020-10-13] MEDS: ENOXAPARIN 30 MG/0.3 ML SQ SCH (12:55)
[2020-10-13 17:01] VITALS: O2SAT 96
--- NOTE | 2020-10-13 17:55 | P.DS ---
Admission Date: 09/08/20 Discharge Date: 10/13/20 Primary Care Provider: Dr. Mathis Disposition: Reason for Admission: Respiratory failure coma Consultations: Pulmonary-Dr. Castro Neurology-Dr. Kaplan Cardiology-Dr. Garza Nephrology-Dr. White Procedures: Medical Problem List: Dyspnea secondary to acute respiratory failure with acute respiratory syndrome related to bilateral COVID 19 pneumonia status post tracheostomy / complicated with subcu emphysema COVID 19 Encephalopathy Diabetes mellitus type 2 with hyperglycemia Hypertension Anemia of chronic disease Atrial fibrillation paroxysmal UTI, urine culture positive for Enterococcus Acute renal insufficiency with hypernatremia Thrombocytopenia likely inflammatory Anemia chronic disease Brief History of Present Illness: Ms. Velasquez is a 74yo F with HTN, DM, cirrhosis presented with worsening SOB after COVID+ diagnosis on 08/06. She was seen in the hospital on 08/12 and was discharged due to mild symptoms. She thought she was improving but over the past week she has continued to worsen. Last night she said her O2 sat read 45%. On presentation, her O2 sat was 85%. At bedside now patient is on BiPAP sats in the 90s. She reports a dry cough. Denies N/V, diarrhea, dysuria and hematuria. CT scan consistent with bilateral COVID pneumonia slightly worse than previous imaging. CT scan of the A/P showed cirrhosis with moderate ascites, new since 08/12 imaging. Patient was admitted for further evaluation and treatment. Hospital Course: Patient presented with dyspnea secondary to acute respiratory failure with acute respiratory syndrome related to bilateral Covid pneumonia. Her hospitalization was prolonged and complicated. Please see notes for details. During the course of her stay her condition worsened. Patient also developed atrial fibrillation requiring IV medication. Patient also found to have UTI which was treated. Patient developed acute renal insufficiency with hypernatremia and thrombocytopenia likely related to Covid infection. Patient eventually required intubation and eventually tracheostomy was placed. Patient also developed COVID-19 encephalopathy. This was confirmed with EEG. Her condition did not improve. Patient continued to worsen. Patient had anasarca and significant subcutaneous emphysema. Patient was seen by multiple specialists including cardiology, pulmonology, nephrology and neurology. As her condition declined advanced directives were readdressed. Patient was made a DNR. Eventually family decided to withdraw care due to her worsening status. Family had expressed that she would never want to be in this type of condition. Withdrawal of care was made with comfort measures. Patient peacefully. Vital Signs/Physical Exam: Temp Pulse Resp BP Pulse Ox 96.8 F 113 H 20 61/44 L 63 L 10/13/20 16:00 10/13/20 17:00 10/13/20 17:00 10/13/20 17:00 10/13/20 17:00 Other Physical/Emotional Findings: Patient Laboratory Data at Discharge: WBC 7.60 K/uL (4.3-10.9) 10/13/20 05:06 Hgb 9.2 g/dL (12.0-15.0) L 10/13/20 05:06 Hct 27.8 % (36.0-45.0) L 10/13/20 05:06 Plt Count 95 K/uL (152-406) L 10/13/20 05:06 PT 16.0 SECONDS (9.5-12.5) H 09/08/20 10:31 INR 1.39 09/08/20 10:31 APTT 25.3 SECONDS (24.3-36.9) 09/08/20 10:31 Sodium 137 mmol/L (136-145) 10/12/20 05:10 Potassium 4.2 mmol/L (3.5-5.1) 10/12/20 05:10 BUN 60 mg/dL (7-18) H 10/12/20 05:10 Creatinine 0.22 mg/dL (0.55-1.3) L 10/12/20 05:10 Glucose 126 mg/dL (74-106) H 10/12/20 05:10 Phosphorus 3.0 mg/dL (2.5-4.9) 10/01/20 05:03 Magnesium 1.9 mg/dL (1.8-2.4) 10/08/20 04:35 Total Bilirubin 0.9 mg/dL (0.2-1.0) 10/13/20 05:06 AST 50 U/L (15-37) H 10/13/20 05:06 ALT 82 U/L (12-78) H 10/13/20 05:06 Alkaline Phosphatase 279 U/L (45-117) H 10/13/20 05:06 Troponin I < 0.02 ng/mL (0.0-0.045) 09/08/20 20:24 Amylase 34 U/L (25-115) 09/08/20 10:31 Lipase 131 U/L (73-393) 09/08/20 10:31 Home Medications: Irbesartan/Hydrochlorothiazide [Avalide 300-12.5 mg Tablet] 1 tab PO DAILY 11/24/13 Duloxetine HCl [Cymbalta] 60 mg PO DAILY 08/13/20 Budesonide 2 mg IN QID 09/09/20 Metronidazole 500 mg PO TID 09/09/20 Rivaroxaban [Xarelto] 20 mg PO DAILY 09/09/20 predniSONE [Prednisone] 20 mg PO TITR 09/09/20 Physician Discharge Instructions: Patient . May she rest in peace. Followup: Wayne Mathis MD [Primary Care Provider] - Time spent managing pt's care (in minutes): 55
[2020-10-16 11:28] VITALS: BP 149/51; TEMP 97.7
== END 2020-10-13 19:35 | disposition expired | DRG 4 ==
LOC: ER 10:14 → ERHOLD 16:33 → 4TH 20:17 → 3RD-ICU 09-10 06:54
PROVIDERS: ADMIT Hospitalist; ATTEND Family Medicine
PROC: 5A09457 Assistance with Respiratory Ventilation, 24-96 Consecutive Hours, Continuous Positive Airway Pressure (ICD-10-PCS; 2020-09-08)
PROC: XW033E5 Introduction of Remdesivir Anti-infective into Peripheral Vein, Percutaneous Approach, New Technology Group 5 (ICD-10-PCS; 2020-09-09)
PROC: 5A1955Z Respiratory Ventilation, Greater than 96 Consecutive Hours (ICD-10-PCS; principal; 2020-09-11)
PROC: 0BH17EZ Insertion of Endotracheal Airway into Trachea, Via Natural or Artificial Opening (ICD-10-PCS; 2020-09-11)
PROC: XW13325 Transfusion of Convalescent Plasma (Nonautologous) into Peripheral Vein, Percutaneous Approach, New Technology Group 5 (ICD-10-PCS; 2020-09-14)
PROC: 02HV33Z Insertion of Infusion Device into Superior Vena Cava, Percutaneous Approach (ICD-10-PCS; 2020-09-16)
PROC: 0B110F4 Bypass Trachea to Cutaneous with Tracheostomy Device, Open Approach (ICD-10-PCS; 2020-09-23)
PROC: 30233N1 Transfusion of Nonautologous Red Blood Cells into Peripheral Vein, Percutaneous Approach (ICD-10-PCS; 2020-09-24)
DX: U07.1 COVID-19 (principal); J12.82 Pneumonia due to coronavirus disease 2019; J96.01 Acute respiratory failure with hypoxia; R18.8 Other ascites; N39.0 Urinary tract infection, site not specified; E87.0 Hyperosmolality and hypernatremia; N17.9 Acute kidney failure, unspecified; T79.7XXA Traumatic subcutaneous emphysema, initial encounter; G93.40 Encephalopathy, unspecified; I10 Essential (primary) hypertension; K74.60 Unspecified cirrhosis of liver; I48.0 Paroxysmal atrial fibrillation; E11.65 Type 2 diabetes mellitus with hyperglycemia; D63.8 Anemia in other chronic diseases classified elsewhere; N28.9 Disorder of kidney and ureter, unspecified; E88.09 Other disorders of plasma-protein metabolism, not elsewhere classified; E87.70 Fluid overload, unspecified; E03.9 Hypothyroidism, unspecified; J43.8 Other emphysema; E66.9 Obesity, unspecified; D69.6 Thrombocytopenia, unspecified; B95.61 Methicillin susceptible Staphylococcus aureus infection as the cause of diseases classified elsewhere; R82.90 Unspecified abnormal findings in urine; Z66 Do not resuscitate; Z90.49 Acquired absence of other specified parts of digestive tract; Z79.4 Long term (current) use of insulin; Z79.899 Other long term (current) drug therapy; Z68.35 Body mass index [BMI] 35.0-35.9, adult; Z79.52 Long term (current) use of systemic steroids; Z79.01 Long term (current) use of anticoagulants; Z78.1 Physical restraint status
CPT/HCPCS: 36415; 36430; 36569; 71045; 71275; 74018; 74176; 80048; 80053; 80076; 81003; 81015; 82140; 82150; 82248; 82274; 82550; 82553; 82728; 82805; 82947; 83036; 83605; 83690; 83735; 83880; 84100; 84134; 84145; 84443; 84484; 85014; 85018; 85025; 85379; 85610; 85730; 86140; 86850; 86900; 86901; 86927; 87040; 87070; 87077; 87086; 87088; 87186; 87205; 93005; 94002; 94003; 94640; 94660; 94760; 95816; 96365; 96367; 96375; 99251; 99285; C9113; J0282; J0330; J0461; J0696; J1100; J1160; J1170; J1450; J1650; J1815; J1940; J2250; J2270; J2370; J2405; J2597; J2704; J2920; J2930; J3010; J3370; J3411; J7030; J7040; J7050; J7060; P9016; P9047; Q9967; U0003